=== PATIENT | female | born 1975 | race Caucasian/White ===

== ENCOUNTER 2017-11-12 08:07 | Emergency (ER) | payer MEDICARE ==
[~2017-11-12] VITALS: Ht 170.2 cm; Wt 90.0 kg
[~2017-11-12 08:07] MED LIST: ALBU90OI61; Adderall 20 MG20 MG PO; COUM; Cleocin HCl300 MG PO; Coumadin5 MG PO; ENOX80I SC; HYDCHL12.5 PO; LORA2 PO; Lovenox80 MG/0.8 SC; MEDICAL MARIJUANA; METPHE20 PO; MIRT15; MORP30 PO; MORP30ER PO; MORP60ER PO; MORPHINE; MORPHINE PUMP; MORPHINE SULFATE; NITR100CA PO; OMEP20ER PO; PHENTERMINE PO; PROM25 PO; RANI150 PO; SIMV40 PO; WARF10; WARF4 PO; WARF5 PO; WARF7.5 PO
[2017-11-12] MEDS ORDERED: ENOX80I SC (08:38)
[2017-11-12 08:48] LABS: BASOPHILS ABSOLUTE AUTO 0.04 K/mm3 (0.00-0.23); BASOPHILS PERCENT AUTO 1 % (0-2); EOSINOPHILS ABSOLUTE AUTO 0.12 K/mm3 (0.00-0.68); EOSINOPHILS PERCENT AUTO 2 % (0-6); Hematocrit 41.2 % (33.0-51.0); Hemoglobin 14.2 g/dL (11.5-16.0); IMMATURE GRAN ABSOLUTE AUTO 0.04 K/mm3 (0.00-0.10); IMMATURE GRAN PERCENT AUTO 1 % (0-1); LYMPHOCYTES ABSOLUTE AUTO 2.47 K/mm3 (0.84-5.20); LYMPHOCYTES PERCENT AUTO 31 % (21-46); MONOCYTES ABSOLUTE AUTO 0.67 K/mm3 (0.16-1.47); MONOCYTES PERCENT AUTO 8 % (4-13); Mean Corpuscular HGB 32.7 pg (26.0-34.0); Mean Corpuscular HGB Conc 34.5 g/dL (31.5-36.5); Mean Corpuscular Volume 95 fL (80-100); Mean Platelet Volume 10.3 fL (9.1-12.4); NEUTROPHILS ABSOLUTE AUTO 4.62 K/mm3 (1.96-9.15); NEUTROPHILS PERCENT AUTO 58 % (41-73); Platelet Count 266 K/mm3 (150-400); RDW Coefficient Variation 12.8 % (11.7-14.2); RDW Standard Deviation 44.7 fL (35.1-46.3); Red Blood Cell Count 4.34 M/mm3 (3.80-5.20); White Blood Cell Count 7.96 K/mm3 (4.00-11.30)
[2017-11-12 09:01] LABS: Alanine Aminotransfer (ALT/SGP 16 U/L (12-78); Albumin, Blood 3.4 g/dL (3.4-5.0); Albumin/Globulin Ratio 0.9 (0.8-1.8); Alk Phos 72 U/L (50-136); Anion Gap 9 mmol/L (6-16); Aspartate Aminotrans (AST/SGOT 14 U/L (12-37); Bilirubin, Total 0.3 mg/dL (0.1-1.0); Blood Urea Nitrogen 12 mg/dL (8-24); Bun/Creatinine Ratio 17.7 (12.0-20.0); CO2, Blood 25 mmol/L (21-32); Chloride, Blood 108 mmol/L (98-108); Creatinine, Blood 0.68 mg/dL (0.40-1.00); Globulin, Blood 3.9 g/dL (2.2-4.0); Glomerular Filtration Rate >60 (60-); Glucose, Blood 115 mg/dL (70-99); Potassium, Blood 3.7 mmol/L (3.5-5.5); Sodium, Blood 142 mmol/L (136-145); Total Protein, Blood 7.3 g/dL (6.4-8.2); Troponin I <0.015 ng/mL (0.000-0.040)
[2017-11-12 09:03] LABS: International Normalized Ratio 0.97
[2017-11-12 10:20] LABS: Source, Urine Clean Catch
[2017-11-12 10:25] LABS: Bilirubin, Urine Neg (Neg); Blood, Urine Neg (Neg); Glucose Qualitative, Urine Neg (Neg); Ketones, Urine Neg (Neg); Leukocyte Esterase, Urine Neg (Neg); Nitrite, Urine Neg (Neg); Protein, Urine Neg (Neg); Specific Gravity, Urine 1.015 (1.003-1.022); Urobilinogen, Urine NORM (Normal)
[2017-11-12 10:32] LABS: Appearance, Urine Clear (Clear); Color, Urine Yellow (P-Yellow)
[2017-11-12] MEDS ORDERED: LEVO750 PO (11:00)
[2017-11-12] MEDS ORDERED: Coumadin5 MG PO (11:00)
== END 2017-11-12 11:19 | disposition home or self-care (01) ==
LOC: ER 08:07
PROVIDERS: Emergency Medicine
DX: J18.9 Pneumonia, unspecified organism (principal); R79.1 Abnormal coagulation profile; I82.409 Acute embolism and thrombosis of unspecified deep veins of unspecified lower extremity; Z91.14 Patient's other noncompliance with medication regimen; F17.200 Nicotine dependence, unspecified, uncomplicated; Z88.8 Allergy status to other drugs, medicaments and biological substances; Z88.0 Allergy status to penicillin; Z79.01 Long term (current) use of anticoagulants; Z86.711 Personal history of pulmonary embolism
CPT/HCPCS: 36415; 71260; 80053; 81003; 83880; 84484; 85025; 85610; 85730; 93005; 93010; 93971; 99284-25; Q9967

== ENCOUNTER 2019-01-20 23:36 | Emergency (ER) | payer MEDICARE ==
[~2019-01-20] VITALS: Ht 172.7 cm; Wt 94.3 kg
[~2019-01-20 23:36] MED LIST changes: +LEVO750 PO; +Ultram50 MG PO
[2019-01-21] MEDS ORDERED: PROZAC20 MG PO (10:35)
[2019-01-21] MEDS ORDERED: ARIPIPRAZOLE5 MG PO (10:36)
[2019-01-21] MEDS ORDERED: ENOX100I SC (10:37)
== END 2019-01-21 00:47 | disposition home or self-care (01) ==
LOC: ER 23:36
DX: Z76.0 Encounter for issue of repeat prescription (principal); Z88.8 Allergy status to other drugs, medicaments and biological substances; Z88.0 Allergy status to penicillin; Z79.01 Long term (current) use of anticoagulants; F17.200 Nicotine dependence, unspecified, uncomplicated; Z85.43 Personal history of malignant neoplasm of ovary
CPT/HCPCS: 96372; J1650

== ENCOUNTER 2019-01-21 10:20 | Day surgery (SDC) | payer MEDICARE ==
[2019-01-21] MEDS ORDERED: PROZAC20 MG PO (10:35)
[2019-01-21] MEDS ORDERED: ARIPIPRAZOLE5 MG PO (10:36)
[2019-01-21] MEDS ORDERED: ENOX100I SC (10:37)
== END 2019-01-21 17:13 | disposition home or self-care (01) ==
LOC: ATC 10:20
DX: I74.3 Embolism and thrombosis of arteries of the lower extremities (principal); D68.51 Activated protein C resistance; F17.200 Nicotine dependence, unspecified, uncomplicated; Z86.718 Personal history of other venous thrombosis and embolism; Z86.711 Personal history of pulmonary embolism; Z88.8 Allergy status to other drugs, medicaments and biological substances; Z88.0 Allergy status to penicillin; Z79.01 Long term (current) use of anticoagulants; Z79.899 Other long term (current) drug therapy
CPT/HCPCS: 96372; J1650

== ENCOUNTER 2019-01-25 07:06 | Day surgery (SDC) | payer MEDICARE ==
[~2019-01-25 07:06] MED LIST changes: +ARIPIPRAZOLE5 MG PO; +ENOX100I SC; +PROZAC20 MG PO
[2019-01-25 09:20] LABS: BASOPHILS ABSOLUTE AUTO 0.05 K/mm3 (0.00-0.23); BASOPHILS PERCENT AUTO 1 % (0-2); EOSINOPHILS ABSOLUTE AUTO 0.28 K/mm3 (0.00-0.68); EOSINOPHILS PERCENT AUTO 3 % (0-6); Hematocrit 36.6 % (33.0-51.0); Hemoglobin 12.1 g/dL (11.5-16.0); IMMATURE GRAN ABSOLUTE AUTO 0.05 K/mm3 (0.00-0.10); IMMATURE GRAN PERCENT AUTO 1 % (0-1); LYMPHOCYTES ABSOLUTE AUTO 2.71 K/mm3 (0.84-5.20); LYMPHOCYTES PERCENT AUTO 25 % (21-46); MONOCYTES ABSOLUTE AUTO 0.74 K/mm3 (0.16-1.47); MONOCYTES PERCENT AUTO 7 % (4-13); Mean Corpuscular HGB 30.6 pg (26.0-34.0); Mean Corpuscular HGB Conc 33.1 g/dL (31.5-36.5); Mean Corpuscular Volume 93 fL (80-100); Mean Platelet Volume 10.3 fL (9.1-12.4); NEUTROPHILS ABSOLUTE AUTO 7.11 K/mm3 (1.96-9.15); NEUTROPHILS PERCENT AUTO 65 % (41-73); Platelet Count 313 K/mm3 (150-400); RDW Coefficient Variation 13.5 % (11.7-14.2); RDW Standard Deviation 46.1 fL (35.1-46.3); Red Blood Cell Count 3.95 M/mm3 (3.80-5.20); White Blood Cell Count 10.94 K/mm3 (4.00-11.30)
[2019-01-25 09:41] LABS: Alanine Aminotransfer (ALT/SGP 28 U/L (12-78); Albumin, Blood 3.3 g/dL (3.4-5.0); Albumin/Globulin Ratio 0.8 (0.8-1.8); Alk Phos 73 U/L (50-136); Anion Gap 5 mmol/L (6-16); Aspartate Aminotrans (AST/SGOT 14 U/L (12-37); Bilirubin, Total 0.1 mg/dL (0.1-1.0); Blood Urea Nitrogen 15 mg/dL (8-24); Bun/Creatinine Ratio 24.8 (12.0-20.0); CO2, Blood 27 mmol/L (21-32); Calcium, Blood 8.7 mg/dL (8.5-10.1); Chloride, Blood 104 mmol/L (98-108); Creatinine, Blood 0.61 mg/dL (0.40-1.00); Globulin, Blood 3.9 g/dL (2.2-4.0); Glomerular Filtration Rate >60 (60-); Glucose, Blood 91 mg/dL (70-99); Potassium, Blood 4.1 mmol/L (3.5-5.5); Sodium, Blood 136 mmol/L (136-145); Total Protein, Blood 7.2 g/dL (6.4-8.2)
--- NOTE | 2019-01-25 10:04 | NUR ---
PT REPORTS "MY R FOOT IS SWOLLEN" PT REMOVED SOCK AND NOTED REDNESS TOP OF FOOT WITH EDEMA NOTED. PT VERBALIZES UNDERSTANDING TO SEEK MEDICAL ATTENTION IF PAIN/REDNESS/SWELLING WORSENS.
--- NOTE | 2019-01-25 17:14 | NUR ---
PT C/O RIGHT FOOT RED AND SWOLLEN AND PAINFUL. PT REPORTS TRAMADOL ISN'T HELPING WITH HER PAIN. ENCOURAGED HER TO ELEVATE HER RIGHT LEG AND TO SEEK MEDICAL ATTENTION IF HER FOOT CHANGES COLOR OR BECOMES COOL TO TOUCH OR PAIN BECOMES WORSE.
[2019-01-26] MEDS ORDERED: Lotrimin Ultra12 GM TOP (10:00)
[2019-01-26] MEDS ORDERED: CEPH500 PO (10:00)
[2019-01-26] MEDS ORDERED: Norco 5-325 Ta1 EACH PO (10:00)
== END 2019-01-25 17:11 | disposition home or self-care (01) ==
LOC: ATC 07:06
PROVIDERS: Internal Medicine Hematology & Oncology
DX: D68.2 Hereditary deficiency of other clotting factors (principal); F17.200 Nicotine dependence, unspecified, uncomplicated; Z88.0 Allergy status to penicillin; Z88.8 Allergy status to other drugs, medicaments and biological substances; Z79.01 Long term (current) use of anticoagulants
CPT/HCPCS: 80053; 85025; 86304; J1650

== ENCOUNTER 2019-01-28 16:07 | Inpatient (IN) | payer MEDICARE ==
[~2019-01-28] VITALS: Ht 170.2 cm; Wt 90.2 kg
[~2019-01-28 16:07] MED LIST changes: +CEPH500 PO; -ENOX100I SC; +Lotrimin Ultra12 GM TOP; +Norco 5-325 Ta1 EACH PO
[2019-01-28 20:40] LABS: BASOPHILS ABSOLUTE AUTO 0.06 K/mm3 (0.00-0.23); BASOPHILS PERCENT AUTO 1 % (0-2); EOSINOPHILS ABSOLUTE AUTO 0.09 K/mm3 (0.00-0.68); EOSINOPHILS PERCENT AUTO 1 % (0-6); Hematocrit 37.6 % (33.0-51.0); Hemoglobin 12.7 g/dL (11.5-16.0); IMMATURE GRAN ABSOLUTE AUTO 0.05 K/mm3 (0.00-0.10); IMMATURE GRAN PERCENT AUTO 0 % (0-1); LYMPHOCYTES ABSOLUTE AUTO 4.05 K/mm3 (0.84-5.20); LYMPHOCYTES PERCENT AUTO 33 % (21-46); MONOCYTES ABSOLUTE AUTO 0.74 K/mm3 (0.16-1.47); MONOCYTES PERCENT AUTO 6 % (4-13); Mean Corpuscular HGB 31.2 pg (26.0-34.0); Mean Corpuscular HGB Conc 33.8 g/dL (31.5-36.5); Mean Corpuscular Volume 92 fL (80-100); Mean Platelet Volume 10.2 fL (9.1-12.4); NEUTROPHILS ABSOLUTE AUTO 7.27 K/mm3 (1.96-9.15); NEUTROPHILS PERCENT AUTO 59 % (41-73); Platelet Count 354 K/mm3 (150-400); RDW Coefficient Variation 13.4 % (11.7-14.2); RDW Standard Deviation 46.1 fL (35.1-46.3); Red Blood Cell Count 4.07 M/mm3 (3.80-5.20); White Blood Cell Count 12.26 K/mm3 (4.00-11.30)
[2019-01-28 21:03] LABS: Alanine Aminotransfer (ALT/SGP 27 U/L (12-78); Albumin, Blood 3.2 g/dL (3.4-5.0); Albumin/Globulin Ratio 0.7 (0.8-1.8); Alk Phos 72 U/L (50-136); Anion Gap 5 mmol/L (6-16); Aspartate Aminotrans (AST/SGOT 11 U/L (12-37); Bilirubin, Total 0.2 mg/dL (0.1-1.0); Blood Urea Nitrogen 11 mg/dL (8-24); Bun/Creatinine Ratio 16.3 (12.0-20.0); CO2, Blood 27 mmol/L (21-32); Calcium, Blood 9.2 mg/dL (8.5-10.1); Chloride, Blood 106 mmol/L (98-108); Creatinine, Blood 0.68 mg/dL (0.40-1.00); Globulin, Blood 4.4 g/dL (2.2-4.0); Glomerular Filtration Rate >60 (60-); Glucose, Blood 98 mg/dL (70-99); Potassium, Blood 3.8 mmol/L (3.5-5.5); Sodium, Blood 138 mmol/L (136-145); Total Protein, Blood 7.6 g/dL (6.4-8.2)
[2019-01-28 21:12] LABS: International Normalized Ratio 1.53; Prothrombin Time Results 15.6 Sec (9.7-11.5)
[2019-01-28] MEDS ORDERED: LOVENOX100 MG/1 M SC (22:34)
[2019-01-28] MEDS ORDERED: WARF5 PO (22:35)
--- NOTE | 2019-01-28 23:28 | NUR ---
PATIENT ARRIVED TO THE FLOOR VIA GURNEY. ADMITTED FOR STENOSIS OF THE RIGHT POPLITEAL ARTERY. PATIENT TRANSFERRED SELF TO THE BED. ABLE TO STAND ON HER FEET WITH SOME DISCOMFORT. RIGHT FOOT HAS SKIN BREAKDOWN IN BETWEEN THE 3RD AND 4TH TOE AND THE 4TH AND 5TH TOE, THERE IS MILD ODOR TO THE FOOT. WOUND CULTURE FOR MRSA ORDERED AND SENT TO LAB. PICTURES TAKEN OF THE FOOT. THERE IS PURPLE OF THE 3RD TOE. REDNESS TO THE BEAVERS, PAIN WHEN CLEANSED AND TOUCHED. PULSES FAINT. ADMIT ASSESSMENT COMPLTED, ALONG WITH HISTORY. HEPARIN DRIP STARTED AND VERIFIED WITH FAHAD WILSON. CALL LIGHT IN REACH. WILL CONTINUE TO MONITOR.
--- NOTE | 2019-01-29 05:01 | NUR ---
SHIFT SUMMARY: DAMON IS A 43 Y/O FEMALE ADMITTED FOR STENOSIS OF THE RIGHT POPLITEAL ARTERY. 3RD TOE ON THE RIGHT FOOT IS PURPLE ON THE BOTTOM. PAIN NOTED FROM TOES TO BEAVERS AVERAGE 8/10. DILAUDID AND NORCO GIVEN RESULTING IN 5-6. ENCOURAGED ELEVATIONS AND HOT AND COLD COMPRESS. NPO AFTER MIDNIGHT FOR FOR PROCEDURE WITH DR. BLANCA. TELE RESULTS SHOWED SINUS TACH IN THE 110'S ESPECIALLY WHEN PAIN IS ELEVATED. HEPARIN DRIP INFUSED WITH NO COMPLICATIONS ABLE TO GET TO THE BATHROOM WITH SBA. CULTURE OF THE WOUNDS BETWEEN RIGHT TOES OBTAINED AND SENT DUE TO HISTORY OF MRSA. WOUNDS DRESSED WITH ADAPTIC AND BANDAID. CALL LIGHT REMAINED IN REACH AND USED APPROPRIATLY. WILL REPORT TO DAY SHIFT RN.
[2019-01-29 06:08] LABS: BASOPHILS ABSOLUTE AUTO 0.07 K/mm3 (0.00-0.23); BASOPHILS PERCENT AUTO 1 % (0-2); EOSINOPHILS ABSOLUTE AUTO 0.24 K/mm3 (0.00-0.68); EOSINOPHILS PERCENT AUTO 2 % (0-6); Hematocrit 37.9 % (33.0-51.0); Hemoglobin 12.6 g/dL (11.5-16.0); IMMATURE GRAN ABSOLUTE AUTO 0.04 K/mm3 (0.00-0.10); IMMATURE GRAN PERCENT AUTO 0 % (0-1); LYMPHOCYTES ABSOLUTE AUTO 4.25 K/mm3 (0.84-5.20); LYMPHOCYTES PERCENT AUTO 39 % (21-46); MONOCYTES ABSOLUTE AUTO 0.81 K/mm3 (0.16-1.47); MONOCYTES PERCENT AUTO 7 % (4-13); Mean Corpuscular HGB 31.1 pg (26.0-34.0); Mean Corpuscular HGB Conc 33.2 g/dL (31.5-36.5); Mean Corpuscular Volume 94 fL (80-100); Mean Platelet Volume 9.9 fL (9.1-12.4); NEUTROPHILS ABSOLUTE AUTO 5.61 K/mm3 (1.96-9.15); NEUTROPHILS PERCENT AUTO 51 % (41-73); Platelet Count 355 K/mm3 (150-400); RDW Coefficient Variation 13.4 % (11.7-14.2); RDW Standard Deviation 46.2 fL (35.1-46.3); Red Blood Cell Count 4.05 M/mm3 (3.80-5.20); White Blood Cell Count 11.02 K/mm3 (4.00-11.30)
[2019-01-29 06:25] LABS: Anion Gap 6 mmol/L (6-16); Blood Urea Nitrogen 13 mg/dL (8-24); Bun/Creatinine Ratio 17.7 (12.0-20.0); CO2, Blood 28 mmol/L (21-32); Calcium, Blood 9.2 mg/dL (8.5-10.1); Chloride, Blood 104 mmol/L (98-108); Creatinine, Blood 0.73 mg/dL (0.40-1.00); Glomerular Filtration Rate >60 (60-); Glucose, Blood 110 mg/dL (70-99); Potassium, Blood 3.9 mmol/L (3.5-5.5); Sodium, Blood 138 mmol/L (136-145)
[2019-01-29 14:19] LABS: Source, Urine Catheter
[2019-01-29 14:46] LABS: Bilirubin, Urine Neg (Neg); Blood, Urine 2+ (Neg); Glucose Qualitative, Urine Neg (Neg); Ketones, Urine 1+ (Neg); Leukocyte Esterase, Urine Neg (Neg); Nitrite, Urine Neg (Neg); Protein, Urine 1+ (Neg); Urobilinogen, Urine NORM (Normal)
[2019-01-29 15:27] LABS: Appearance, Urine Clear (Clear); Color, Urine Yellow (P-Yellow)
[2019-01-29 15:29] LABS: Bacteria Rare /hpf; Squamous Epithelial Cells Rare /hpf (Few); White Blood Cells, Urine 0-2 /hpf (0-5)
--- NOTE | 2019-01-29 16:29 | NUR ---
PT ADMITTED [facility] S/P PERIPHERAL ANGIOGRAM WITH INTERVENTION FOR POP ART OCCLUSION OF RIGHT LEG. PT ARRIVED TO ROOM AT 1325. PT AWAKE, CRYING OUT IN PAIN; VERY RESTLESS, W C/O PAIN 10/10 TO RIGHT FOOT, RIGHT LEG, HIPS, AND SHOULDER. PT HYPERSENSITIVE TO ALL TOUCH AND STIMULI. DILAUDID IV GIVEN WITH SOME EFFECT. PT CONT TO C/O SEVERE PAIN BUT FELL IN AND OUT OF SLEEP DURING BEDSIDE REPORT. HEPARIN GTT INFUSING INTO LEFT ART SHEATH AT 6ML HR(300UNITS/HR) AND CATHFLO AT AT 1MG/HR (25MLS/HR). LEFT GROIN SOFT, W/O BLEEDING OR HEMATOMA, BUT TENDER (PT TENDER TO MOST OF BODY). LEFT FOOT WITH 2+ STRONG PULSES TO PT/DP. UNABLE TO FIND PULSES TO RIGHT FOOT USING DOPPLER. DR MUSA NOTIFIED; PT MAY HAVE ABSENT TO INTERMITT PULSES PER DR MUSA. DR MUSA AT BEDSIDE TO CHECK ON PT AT 1528. ALL RIGHT TOES DUSKY WITH POOR CAP REFILL. BACK SIDE OF MIDDLE TOE ESPECIALLY DUSKY/BLUE. FOOT COOL AND PALE. PER DR MUSA FOOT IMPROVED COMPARED TO PRE PROCEDURE.
--- NOTE | 2019-01-29 18:36 | NUR ---
PT AWAKE TALKING WITH VISITOR. DRINKING JUICE AND TOLERATING WELL. PAIN TO RIGHT CALF/FOOT 5-6/10. PT HAPPY WITH PAIN LEVEL COMING DOWN. DILAUDID IVP GIVEN. DOPPLER PULSES POSITIVE TO RIGHT PT/DP. PULSES MARKED W PEN. FOOT WARM AND FLUSHED WITH IMPROVING CAP REFILL. SOME CYANOSIS REMAINS TO RIGHT TOES; ESPECIALLY R MIDDLE TOE. LEFT GROIN STABLE. TPA AND HEP GTT CONT TO INFUSE.
--- NOTE | 2019-01-29 22:20 | NUR ---
INITIAL ASSESSMENT: PT A&O, COMPLAINS OF PAIN. AFEBRILE. CURRENTLY ON FLAT TIME WITH L FEMORAL ART SHEATH IN PLACE WITH TPA INFUSING AT 1MG/HR AND HEPARIN AT 300U/HR. SMALL HEMATOMA AT INSERTION SITE. PULSES ARE STRONG ON L FOOT. R TIBIAL PULSE FOUND WITH DOPPLER, UNABLE TO LOCATE R PEDAL WITH DOPPLER. F FOOT COOL TO THE TOUCH HOWEVER CAP REFILL <3 SEC. LUNG SOUNDS CLEAR, SPO2 >90% ON RA. SR, HR 81, SBP IN THE 110S. BT NORMAL NO BM CURRENTLY. MARIE IN PLACE DRAINING CLEAR YELLOW FLUID. 2 IVS TO L ARM, ONE IN LFA, ONE IN L WRIST. LFA IV PATENT. PT CURRENTLY RESTING AND DOES NOT HAVE ANY COMPLAINTS.
--- NOTE | 2019-01-29 23:45 | NUR ---
PT WRITHING IN PAIN. CALL PLACED TO DR. MUSA FOR ADDITIONAL ORDERS. OK TO GIVE VERSED ORDERED ON MAY. ADDITIONAL ORDERS FOR ATIVAN 1 MG X NOW AND ADDITIONAL 1MG IN 30 MIN IF NOT EFFECTIVE. ATIVAN 1MG PRN THEREAFTER. PT STILL AGITATED DESPITE MEDS. PT RE-EDUCATED ABOUT NEED TO KEEP LEG STILL. PT STATED UNDERSTANDING HOWEVER CONTINUED TO TRASH AROUND IN BED.
--- NOTE | 2019-01-30 00:45 | NUR ---
CALL PLACED TO DR MUSA REGARDING LEAKING FROM [facility] ART SITE AND LOSS OF PULSES TO R. FOOT/TIBIAL. ORDER TO TURN TPA DOWN TO 0.5MG/HR. DR MUSA STATES INTERMITTENT LOSS OF PULSES TO R FOOT IS TO BE EXPECTED. WILL CONTINUE TO MONITOR PULSES VIA DOPPLER. DR MUSA NOTIFIED OF MANUAL PRESSURE HELD AT [facility] ART SITE.
[2019-01-30 04:05] LABS: BASOPHILS ABSOLUTE AUTO 0.04 K/mm3 (0.00-0.23); BASOPHILS PERCENT AUTO 1 % (0-2); EOSINOPHILS ABSOLUTE AUTO 0.19 K/mm3 (0.00-0.68); EOSINOPHILS PERCENT AUTO 2 % (0-6); Hematocrit 35.4 % (33.0-51.0); Hemoglobin 11.9 g/dL (11.5-16.0); IMMATURE GRAN ABSOLUTE AUTO 0.03 K/mm3 (0.00-0.10); IMMATURE GRAN PERCENT AUTO 0 % (0-1); LYMPHOCYTES ABSOLUTE AUTO 1.85 K/mm3 (0.84-5.20); LYMPHOCYTES PERCENT AUTO 22 % (21-46); MONOCYTES ABSOLUTE AUTO 0.67 K/mm3 (0.16-1.47); MONOCYTES PERCENT AUTO 8 % (4-13); Mean Corpuscular HGB 30.9 pg (26.0-34.0); Mean Corpuscular HGB Conc 33.6 g/dL (31.5-36.5); Mean Corpuscular Volume 92 fL (80-100); Mean Platelet Volume 9.7 fL (9.1-12.4); NEUTROPHILS ABSOLUTE AUTO 5.79 K/mm3 (1.96-9.15); NEUTROPHILS PERCENT AUTO 68 % (41-73); Platelet Count 261 K/mm3 (150-400); RDW Coefficient Variation 13.4 % (11.7-14.2); RDW Standard Deviation 45.5 fL (35.1-46.3); Red Blood Cell Count 3.85 M/mm3 (3.80-5.20); White Blood Cell Count 8.57 K/mm3 (4.00-11.30)
[2019-01-30 04:25] LABS: Anion Gap 6 mmol/L (6-16); Blood Urea Nitrogen 7 mg/dL (8-24); Bun/Creatinine Ratio 11.5 (12.0-20.0); CO2, Blood 26 mmol/L (21-32); Calcium, Blood 8.7 mg/dL (8.5-10.1); Chloride, Blood 104 mmol/L (98-108); Creatinine, Blood 0.61 mg/dL (0.40-1.00); Glomerular Filtration Rate >60 (60-); Glucose, Blood 103 mg/dL (70-99); Potassium, Blood 3.9 mmol/L (3.5-5.5); Sodium, Blood 136 mmol/L (136-145)
--- NOTE | 2019-01-30 05:47 | NUR ---
SHIFT SUMMARY: PT A&O. WAS AGITATED AND ANXIOUS AT THE BEGINNING OF SHIFT, THRASHING AROUND, UNABLE TO REDIRECT PT TO LIE STILL. COMPLAINED OF 10/10 PAIN OF R FOOT AND BACK. LUNG SOUNDS CLEAR THROUGHOUT. SPO2 GREATER THAN 90% ON RA. ST, HR IN THE 100S, SBP STABLE IN THE 110S. BT X4, NO BM THIS SHIFT. MARIE IN PLACE DRAINING CLEAR YELLOW FLUID. 20G IN L HAND, 20G LFA. FEM SHEATH IN L GROIN WITH TPA INFUSING 0.5MG/HR IN DISTAL PORT AND HEPARIN INFUSING AT 300U/HR IN PROXIMAL PORT. IN MID OF SHIFT R FOOT BECAME COOL, DUSKY, AND CYANOTIC, WAS NO LONGER ABLE TO FIND PULSES WITH DOPPLER. LENCHO NOTIFIED SEE PREVIOUS NURSING NOTES. PULSES PRESENT AT THIS TIME VIA DOPPLER WITH IMPROVED COLOR, WARMTH, CAP REFILL. SOME OOZING AT FEM INSERTION SITE. FEM STOP APPLIED EARLIER IN SHIFT. NO NEW BLEEDING AT THIS TIME. PT CURRENTLY RESTING COMFORTABLY.
--- NOTE | 2019-01-30 08:00 | NUR ---
ASSUMED CARE NOTE: ASSUMED CARE OF PT @ 0700, RECEVIED REPORT FROM ACE WILSON. PT IS ALERT AND ORIENTED X3. PT IS ON RA WITH SPO2 ABOVE 90%, PT IN SINUS TACH WITH HR BETWEEN 110-120 BPM. L FEMORAL SHEATH WITH TPA INFUSING @ 0.5MG/HR (DISTAL PORT), AND HEPARIN INFUSING @ 3.53 U/KG/HR IN PROXIMAL PORT. FEMORAL SHEATH IS OZZING BLOOD, FEM STOP WAS PLACED OVER TO HOLD PRESSURE. ALL LOWER EXTREMITY PULSES ARE PRESENT WITH DOPPLER. RIGHT FOOT IT WARM TO THE TOUCH, SLIGHTLY CYANOTIC, PT ALSO STATES NUMBNESS AND TINGILING TO THE FOOT. DR. Giron WAS CALLED FOR REPEAT LAB, NO NEW ORDERS. PT WILL BE TAKEN TO THE MANAGER AUTOMOTIVE SHORTLY. PT IS C/O PAIN TO RIGHT LEG AND BACK. PT HAS BEEN MEDICATED PER EMAR. WILL CONTINUE TO MONITOR.
--- NOTE | 2019-01-30 09:30 | NUR ---
Spoke with Dr. Toure if need to check for fibrinogen level since there was no order for recheck, he stated will see patient shortly and that no orders received.
--- NOTE | 2019-01-30 10:00 | NUR ---
RIGHT MIDDLE TOE ASSESSMENT: LATERAL-BLACK POSTERIOR- LIGHT PURPLE ANTERIOR-PINK TEMP-COOL
--- NOTE | 2019-01-30 11:40 | NUR ---
UPDATE: REBLEED TO L FEM SHEATH SITE. MANUAL PRESSURE WAS PLACED ABOVE THE SHEATH SITE FOR FIVE MINTUES. DRESSING WAS CHANGED AND REINFORCED. FEM STOP PLACED. DR. Giron CALLED, LEFT MESSAGE. WILL CONTINUE TO [facility] SITE.
--- NOTE | 2019-01-30 11:48 | NUR ---
UPDATE: TALKED TO STEVE PALACIOS FROM [facility] TO LET DR. Giron KNOW ABOUT THE PT STATUS. HE WILL RELAY MESSAGE.
--- NOTE | 2019-01-30 15:47 | NUR ---
Spoke with Dr. Toure regarding Left Groin Access site oozing. Bed sheet has been soaked with blood which concerns this nurse. Tried to explain to him that we had been keeping the fem stop in place but not inflated. But he stated will call this nurse. He ordered for a STAT H&H, asked him if we can also do a fibrinogen level he stated that it should have been ordered every 6 hours. Informed this was not ordered every 6 hours.
--- NOTE | 2019-01-30 16:10 | NUR ---
DR. MUSA CAME BY TO SEE PT. INFORMED HIM THAT SHEETS WERE SOAKED WITH BLOOD AND THE SHEETS PT IS LAYING ON ARE NEW SHEETS BUT STILL WITH BLOOD OOZING SLOWLY FROM LEFT GROIN ACCESS SITE. DR. BLANCA IS AWARE OF PT FEM-STOP IN PLACE BUT NOT INFLATED AT THE LEFT GROIN ACCESS SITE. DR. MUSA SEEMED TO BE HAPPY ABOUT OVERALL CONDITION OF THE FOOT AND ACCESS SITE.
[2019-01-30 16:17] LABS: Hematocrit 33.5 % (33.0-51.0); Hemoglobin 11.1 g/dL (11.5-16.0)
--- NOTE | 2019-01-30 17:16 | NUR ---
DR. MUSA WAS NOTIFIED REGARDING PT'S FIBRINOGEN LEVEL OF 90. HE ORDERED TO STOP THE TPA DRIP AND CONTINUE WITH THE HEPARIN DRIP.
--- NOTE | 2019-01-30 17:50 | NUR ---
SHIFT SUMMARY: PT CONTINUES TO BE A&0X3. RA WITH SPO2 ABOVE 90%. PT IS IN SINUS TACH W/ HR BETWEEN 90-100 BPM. PT HAS BEEN COOPRATIVE T/O SHIFT. PT CONTINUES TO HAVE PAIN, SHE HAS BEEN MEDICATED PER EMAR. PT PAIN LEVEL HAS IS BEING MANAGED W/ CURRENT MED REGIMEN. PT LEFT FEMORAL SHEATH CONTINUES TO OOZE SCANT AMOUNTS. HEPARIN AT 300U/HR AT SITE, TPA DISCONTINUED. PEDAL PULSES FOUND WITH DOPPLER PT WAS ABLE TO GET REST. FAMILY VISITED AND WAS UPDATED. WILL CONTINUE TO MONITOR PT UNTIL REPORT IS GIVEN TO ONCOMING SHIFT. STILL AWAITING TO GO TO ENTRY LEVEL ACCOUNT EXECUTIVE FOR PROCEDURE.
--- NOTE | 2019-01-30 19:06 | NUR ---
PT WAS TAKEN TO THE MODEL MAKER APPRENTICE AT THIS TIME.
--- NOTE | 2019-01-30 23:42 | NUR ---
ASSUMED PT CARE AT 2054 PT ARRIVED FROM ENGRAVER SET UP OPERATOR POST RIGHT POPLITEAL TO RIGHT TIBIAL BALLOONING. PER REPORT PT IS TO ANTICIPATE GOING BACK FOR FURTHER INTERVENTION TOMORROW. ORDERS FOR HEPARIN AT 15UNITS/KG/HR; INFUSING AT A RATE OF 27.9 MLS/HR WITH PHARMACY CONSULT TO MANAGE. SHEATH TO LEFT FEMORAL SITE IS IN PLACE WITH OOZING NOTED AROUND INSERTION; SITE SURROUNDING INSERTION IS SOFT, NON-TENDER WITH NO HEMATOMA NOTED. PERIPHERAL PULSES ARE STRONG AND PALPABLE TO LLE; DOPPLER PEDAL AND TIBIAL PULSES TO RLE. PHARMACY NOTIFIED WITH ORDERS FOR PTT FOR NOW. PTT CAME BACK CRITICALLY HIGH; GREATER THAN 139. PHARMACIST NOTIFIED WITH ORDERS TO HOLD HEPARIN X2 HOURS. AFTER PLACING HEPARIN ON STANDBY; SITE WAS RECHECKED WITH SIGNIFICANT OOZING NOTED; SATURATING GAUZE AT INSERTION SITE, WELL WASH CLOTH TO GROIN. HELD MANUAL PRESSURE FROM 2215 UNTIL 2255. CHANGED DRESSING UTILIZING STERILE TECHNIQUE; APPLIED FABIO DRESSING AND FEM STOP. FABIO DRESSING REMAINS SATURATED; HOWEVER, NO FURTHER OOZING DOWN GROIN. SURROUNDING TISSUE REMAINS SOFT, NON-TENDER WITH NO HEMATOMA NOTED. PERIPHERAL PULSES REMAIN PALPABLE AND STRONG TO LLE; AND DOPPLER PULSES FOUND TO BOTH PEDAL AND TIBIAL PULSES TO RLE. PT MEDICATED FOR PAIN WITH 0.5MG IV DILAUDID DURING MANUAL PRESSURE. CURRENTLY, PT IS SLEEPING WITH NO C/O DISCOMFORT. WILL CONTINUE TO MONITOR SITE AND VSS. NEXT PTT TO BE DRAWN AT 0000. PT HAS CALL LIGHT WITHIN REACH AND SHE IS ABLE TO MAKE HER NEEDS KNOWN.
--- NOTE | 2019-01-31 06:43 | NUR ---
END OF SHIFT SUMMARY NO SIGNIFICANT CHANGED FROM LAST ENTRY. CHANGED DRESSING TO LEFT FEMORAL SITE WITH FABIO DRESSING. MINIMAL AMOUNT OF SANGUINOUS DRAINAGE TO FABIO DRESSING. MEDICATED WITH VERSED AND DILAUDID THROUGHOUT NIGHT. PULSES TO RLE OBTAINED VIA DOPPLER- PEDAL AND TIBIAL. COLOR- WARM AND PINK. DISCOLORED 3-5 DIGIT TOES WITH ODOR NOTED. PULSES TO LEFT PEDAL AND TIBIAL PALPABLE AND STRONG. HEPARIN RESUMED AT 12 UNITS/KG/HR PER PHARMACY CONSULT. NEXT PTT AT 0800. PATIENT GIVEN PARTIAL BEDBATH, APPEARS COMFORTABLE AT THIS TIME, WILL CONTINUE TO MONITOR UNTIL HANDED OFF TO ONCOMING NURSE.
--- NOTE | 2019-01-31 08:00 | NUR ---
ASSUMED CARE NOTE: ASSUMED CARE OF PT @ 0700, RECEVIED REPORT FROM HATTIE WILSON. UPON ENTERING ROOM PT WAS A&OX3, ON RA WITH SPO2 ABOVE 90%. PT CONTINUES TO C/O PAIN TO THE RIGHT LOWER EXTREMITEY, WILL MEDICATE PER EMAR. NO ACTIVE BLEEDING SEEN ON LEFT FEMORAL SHEATH, SLIGHT BRUSING SEEN PROXIMAL TO INSERTION SITE. 12U/KG/HR OF HEPARIN INFUSING INTO THE FEMORAL SHEATH. RIGHT LEG WAS ASSESSED SLIGHT DISCOLORATION TO FOOT, HOWEVER IT IS WARM TO THE TOUCH WITH GOOD CAP REFILL (EXCEPT THE MIDDLE TOE). MIDDLE RIGHT TOE IS BLACK LATERALY (R) AND PURPLE POSTERIORLY. PEDAL AND TIBIAL PULSES WERE TAKEN BY DOPPLER. MARIE PATENT AND DRAINING CLEAR YELLOW URINE. PT IS NOW NPO AND AWATING WAFER PRODUCTION WORKER PROCEDURE. WILL CONTINUE TO MONITOR PT T/O SHIFT.
[2019-01-31 08:34] LABS: BASOPHILS ABSOLUTE AUTO 0.03 K/mm3 (0.00-0.23); BASOPHILS PERCENT AUTO 0 % (0-2); EOSINOPHILS ABSOLUTE AUTO 0.26 K/mm3 (0.00-0.68); EOSINOPHILS PERCENT AUTO 2 % (0-6); Hematocrit 32.1 % (33.0-51.0); Hemoglobin 10.6 g/dL (11.5-16.0); IMMATURE GRAN ABSOLUTE AUTO 0.05 K/mm3 (0.00-0.10); IMMATURE GRAN PERCENT AUTO 1 % (0-1); LYMPHOCYTES ABSOLUTE AUTO 2.26 K/mm3 (0.84-5.20); LYMPHOCYTES PERCENT AUTO 21 % (21-46); MONOCYTES PERCENT AUTO 9 % (4-13); Mean Corpuscular HGB 30.8 pg (26.0-34.0); Mean Corpuscular Volume 93 fL (80-100); Mean Platelet Volume 9.8 fL (9.1-12.4); NEUTROPHILS ABSOLUTE AUTO 7.15 K/mm3 (1.96-9.15); NEUTROPHILS PERCENT AUTO 67 % (41-73); Platelet Count 234 K/mm3 (150-400); RDW Coefficient Variation 13.3 % (11.7-14.2); RDW Standard Deviation 45.4 fL (35.1-46.3); Red Blood Cell Count 3.44 M/mm3 (3.80-5.20); White Blood Cell Count 10.65 K/mm3 (4.00-11.30)
[2019-01-31 08:40] LABS: Albumin, Blood 2.4 g/dL (3.4-5.0); Anion Gap 6 mmol/L (6-16); Blood Urea Nitrogen 6 mg/dL (8-24); Bun/Creatinine Ratio 10.2 (12.0-20.0); CO2, Blood 27 mmol/L (21-32); Calcium, Blood 8.5 mg/dL (8.5-10.1); Chloride, Blood 102 mmol/L (98-108); Creatinine, Blood 0.59 mg/dL (0.40-1.00); Glomerular Filtration Rate >60 (60-); Glucose, Blood 112 mg/dL (70-99); Phosphorus, Blood 3.3 mg/dL (2.5-4.9); Potassium, Blood 3.8 mmol/L (3.5-5.5); Sodium, Blood 135 mmol/L (136-145)
--- NOTE | 2019-01-31 16:42 | NUR ---
1600: PT ASSISTED TO LOG ROLL FOR REPOSITIONING, SMALL AMOUNT OF FRESH BLOOD OOZING FROM LEFT GROIN SHEATH AFTER REPOSITION. MANUAL PRESSURE HELD X15 MINUTES, HEMOSTASIS ACHIEVED. BP WNL, HR 110'S SINUS, PTT THERAPEUTIC. HEPARIN CONTINUES TO INFUSE PER ORDERS. 1640: NO ADDITIONAL OOZING FROM GROIN SITE SINCE MANUAL PRESSURE RELEASED, PT TO BRIDAL STYLIST SALES CONSULTANT AT THIS TIME. BRIDAL STYLIST SALES CONSULTANT STAFF UPDATED ON PT STATUS.
--- NOTE | 2019-01-31 18:06 | NUR ---
SHIFT SUMMARY: PT' VSS T/O. SINUS TACH WITH HR RANGING IN THE 100-110. LEFT FEMORAL SHEATH W/ SCANT BLEEDING X1, RESOLVED WITH MANUAL PRESSURE. HEPARIN INFUSING @ 13U/HR AT SHEATH SITE UPON LEAVING TO DRAPERY ROD ASSEMBLER. RIGHT FOOT EDEMA REAMINS, PULSES FOUND BY DOPPLER, WARM TO THE TOUCH. RIGHT MIDDLE TOE IS DUSKY, 4TH AND 5TH TOE IS IMPROVING IN COLOR. WOUNDS TO 3RD-5TH TOES OF RIGHT FOOT, OZZING SMALL AMOUNT OF DARK MALODOROUS DRAINAGE. PT C/O OF NUMT TO RLE. PT RESPONDING WELL TO PAIN REGIMEN. PT REMAINS IN DRAPERY ROD ASSEMBLER, WILL GIVE REPORT TO ONCOMING NURSE.
--- NOTE | 2019-01-31 19:57 | NUR ---
ASSUMED PATIENT CARE RETURNED FROM PHONE COUNSELOR AT 1930 AFTER IVC FILTER PLACEMENT TO RIGHT FEM VEIN, STENT ABOVE KNEE IN RIGHT POPLITEAL, AND BALLOONING FROM RIGHT POPLITEAL TO RIGHT TIBIAL, ANGIOSEAL TO LEFT FEMORAL, MANUAL PRESSURE APPLIED TO RIGHT TIBIAL WITH PRESSURE DRESSIGN INTACT WITH MINIMAL AMOUNT OF SANGUINOUS DRAINAGE NOTED. MANUAL PRESSURE HELD TO RIGHT FEMORAL SITE WITH DRESSING C/D/I. MANUAL PRESSURE HELD BY PHONE COUNSELOR PERSONNEL. PT RETURNED WITH HEPARIN RUNNING THROUGH L FOREARM IV AT 13 UNITS/KG/HR. CALL PLACED TO HOSPITALIST DUE TO DISCOLORED THIRD TO FIFTH DIGIT TOES WELL STRONG ODOR THAT HAS WORSENED SINCE YESTERDAY. HOSPITALIST TO COME TO UNIT TO ASSESS PATIENT. PATIENT IS COMFORTABLE AND SLEEPING AT THIS TIME. VSS. NO PAIN, NAUSEA OR VOMITING AT THIS TIME. WILL CONTINUE TO MONITOR.
[2019-02-01 03:37] LABS: BASOPHILS ABSOLUTE AUTO 0.04 K/mm3 (0.00-0.23); BASOPHILS PERCENT AUTO 0 % (0-2); EOSINOPHILS ABSOLUTE AUTO 0.41 K/mm3 (0.00-0.68); EOSINOPHILS PERCENT AUTO 4 % (0-6); Hemoglobin 10.3 g/dL (11.5-16.0); IMMATURE GRAN ABSOLUTE AUTO 0.07 K/mm3 (0.00-0.10); IMMATURE GRAN PERCENT AUTO 1 % (0-1); LYMPHOCYTES ABSOLUTE AUTO 3.43 K/mm3 (0.84-5.20); LYMPHOCYTES PERCENT AUTO 31 % (21-46); MONOCYTES ABSOLUTE AUTO 0.87 K/mm3 (0.16-1.47); MONOCYTES PERCENT AUTO 8 % (4-13); Mean Corpuscular HGB 31.3 pg (26.0-34.0); Mean Corpuscular HGB Conc 33.2 g/dL (31.5-36.5); Mean Corpuscular Volume 94 fL (80-100); Mean Platelet Volume 10.1 fL (9.1-12.4); NEUTROPHILS ABSOLUTE AUTO 6.42 K/mm3 (1.96-9.15); NEUTROPHILS PERCENT AUTO 57 % (41-73); Platelet Count 240 K/mm3 (150-400); RDW Coefficient Variation 13.3 % (11.7-14.2); RDW Standard Deviation 46.7 fL (35.1-46.3); Red Blood Cell Count 3.29 M/mm3 (3.80-5.20); White Blood Cell Count 11.24 K/mm3 (4.00-11.30)
[2019-02-01 03:56] LABS: Anion Gap 3 mmol/L (6-16); Blood Urea Nitrogen 7 mg/dL (8-24); Bun/Creatinine Ratio 11.9 (12.0-20.0); CO2, Blood 32 mmol/L (21-32); Calcium, Blood 8.6 mg/dL (8.5-10.1); Chloride, Blood 103 mmol/L (98-108); Creatinine, Blood 0.59 mg/dL (0.40-1.00); Glomerular Filtration Rate >60 (60-); Glucose, Blood 107 mg/dL (70-99); Potassium, Blood 4.4 mmol/L (3.5-5.5); Sodium, Blood 138 mmol/L (136-145)
--- NOTE | 2019-02-01 05:24 | NUR ---
END OF SHIFT SUMMARY NO SIGNIFICANT EVENTS SINCE LAST ENTRY. VSS. PATIENT'S PAIN HAS BEEN BETTER MANAGED THIS SHIFT. WOUND CARE TO RLE. PER ORDERS FROM JESSICA LUNDY TOES ARE TO REMAIN DRY. PLACED MEDEL'S WOOL BETWEEN TOES. SEE NURSE NOTE. LEFT AND RIGHT FEM SITE AND R TIBIAL SITE HAVE BEEN STABLE, NO OOZING OR HEMATOMA NOTED. RLE COLOR IS BETTER. HEPARIN GTT REMAINS AT 12.5 UNITS/KG/HR. WILL CONTINUE TO MONITOR UNTIL HANDOFF TO ONCOMING NURSE.
--- NOTE | 2019-02-01 07:20 | NUR ---
START OF SHIFT NOTE: RECEIVED REPORT FROM STEVE LIND, AND HATTIE SIMPSON RN, ASSUMED CARE, PATIENT IS AWAKE, NEED REPOSITIONING, HAD PATIENT SIT AT SIDE OF BED AND DANGLE, ALSO STAND FOR A BRIEF MOMENT, PATIENT TOLERATED WELL, BUT C/O "THROBBING" IN RLE, ANGIOSEALS IN BILATERAL FEMORAL GROIN SITES, SOFT, NONTENDER, NO HEMATOMA OR BLEEDING NOTED, PATIENT'S RLE MIDDLE TOE HAS A BLACK TIP, TOES ARE WITH COTTON BALLS, PEDAL PULSES PALPABLE BILATERAL, RIGHT PEDAL PULSE FAINT, BUT LEFT PEDAL PULSE STRONG, PATIENT IS A+OX4, LUNG SOUNDS CLEAR, ST WITH HR IN 120'S, BOWEL TONES PRESENT IN ALL FOUR QUADRANTS, PATIENT STATED SHE HAS NOT EATEN IN FOUR DAYS, MARIE CATHETER IN PLACE AND DRAINING CLEAR YELLOW URINE, HEPARIN INFUSING AT 12.5, PATIENT RECEIVED 1MG DILAUDED IV FOR 8/10 PAIN (THROBBING) IN RLE AND BACK PAIN, CALL LIGHT IN REACH, WILL CONTINUE TO MONITOR.
--- NOTE | 2019-02-01 08:29 | NUR ---
PATIENT WAS POSITIONED IN CHAIR POSITION VIA BED, TOLERATING WELL AT THIS TIME, VSS, AFEBRILE, PAIN DOWN TO 5, PATIENT STATES THAT "SHE LIVES AT A 4 OR 5 FOR PAIN OUTSIDE THE HOSPITAL, ATE SMALL AMOUNT OF BREAKFAST, STATED "I NORMALLY DON'T EAT BREAKFAST", POSITIONED FOR COMFORT, CALL LIGHT IN REACH, WILL CONTINUE TO MONITOR.
--- NOTE | 2019-02-01 10:29 | NUR ---
PATIENT RESTING WITH EYES CLOSED, AWAITING DR. RANGEL TO SEE PATIENT FOR FURTHER INSTRUCTIONS, CALL LIGHT IN REACH, WILL CONTINUE TO MONITOR.
--- NOTE | 2019-02-01 12:26 | NUR ---
PT/OT IN TO SEE PATIENT, DID WELL WITH WALKER UP IN ROOM, UP TO ROOM TOILET, CALL LIGHT IN REACH, WILL CONTINUE TO MONITOR.
--- NOTE | 2019-02-01 12:48 | NUR ---
PATIENT UP IN CHAIR, INQUIRING ABOUT NEXT DOSE OF PAIN MEDICATION, WILL D/C FRANK BILLINGS, PATIENT ABLE TO USE ROOM TOILET AT THIS TIME, FRIEND AT BEDSIDE CALL LIGHT IN REACH, WILL CONTINUE TO MONITOR.
--- NOTE | 2019-02-01 13:23 | NUR ---
PATIENT RECEIVED 3RD DOSE OF DILAUDID 1 MG IV FOR 8/10 PAIN IN RLE, ALSO MARIE CATHETER D/C'D, PATIENT TOLERATED WELL AND UP TO ROOM TOILET TO VOID SMALL AMOUNT OF URINE, VSS, AFEBRILE, CALL LIGHT IN REACH, WILL CONTINUE TO MONITOR.
--- NOTE | 2019-02-01 14:21 | NUR ---
PT/OT IN TO WORK WITH PATIENT AGAIN, UP IN ROOM WITH WALKER, RETURNED TO BED, PATIENT VERBALIZED WISH TO TAKE A NAP.
--- NOTE | 2019-02-01 14:57 | NUR ---
REPORT CALLED TO STEVE GA, ON MEDICAL FLOOR, PATIENT WILL TRANSFER TO ROOM 358 VIA WHEELCHAIR WITH ALL MEDICATIONS AND BELONGINGS.
--- NOTE | 2019-02-01 19:26 | NUR ---
PT ARRIVED TO THE FLOOR THIS AFTERNOON. PT ARRIVED VIA WHEELCHAIR. PT TRANSFERED TO THE BED INDEPENDENTLY. PT STATES PAIN ON A 6-8 LEVEL IN HER RIGHT FOOT/ANKLE. PT MEDICATED WITH DILAUDID FOR PAIN. PT INDEPENDENT IN ROOM. PT ANXIOUS ABOUT THE POSSIBILITY OF GANGRENE IN HER MIDDLE RIGHT TOE. PT ALERT AND ORIENTED THIS AFTERNOON AND EVENING.
--- NOTE | 2019-02-02 04:40 | NUR ---
COVERING PRIMARY RN ON LUNCH BREAK. MEDICATED PT FOR PAIN TO RLE WITH 1 MG IV DILAUDID SEE EMAR.
[2019-02-02 04:49] LABS: BASOPHILS ABSOLUTE AUTO 0.05 K/mm3 (0.00-0.23); BASOPHILS PERCENT AUTO 1 % (0-2); EOSINOPHILS ABSOLUTE AUTO 0.59 K/mm3 (0.00-0.68); EOSINOPHILS PERCENT AUTO 6 % (0-6); Hematocrit 29.2 % (33.0-51.0); Hemoglobin 9.7 g/dL (11.5-16.0); IMMATURE GRAN ABSOLUTE AUTO 0.11 K/mm3 (0.00-0.10); IMMATURE GRAN PERCENT AUTO 1 % (0-1); LYMPHOCYTES ABSOLUTE AUTO 2.27 K/mm3 (0.84-5.20); LYMPHOCYTES PERCENT AUTO 23 % (21-46); MONOCYTES ABSOLUTE AUTO 0.91 K/mm3 (0.16-1.47); MONOCYTES PERCENT AUTO 9 % (4-13); Mean Corpuscular HGB 30.5 pg (26.0-34.0); Mean Corpuscular HGB Conc 33.2 g/dL (31.5-36.5); Mean Corpuscular Volume 92 fL (80-100); Mean Platelet Volume 9.6 fL (9.1-12.4); NEUTROPHILS ABSOLUTE AUTO 5.88 K/mm3 (1.96-9.15); NEUTROPHILS PERCENT AUTO 60 % (41-73); Platelet Count 302 K/mm3 (150-400); RDW Coefficient Variation 13.2 % (11.7-14.2); RDW Standard Deviation 44.2 fL (35.1-46.3); Red Blood Cell Count 3.18 M/mm3 (3.80-5.20); White Blood Cell Count 9.81 K/mm3 (4.00-11.30)
[2019-02-02 05:05] LABS: Anion Gap 5 mmol/L (6-16); Blood Urea Nitrogen 11 mg/dL (8-24); Bun/Creatinine Ratio 17.5 (12.0-20.0); CO2, Blood 30 mmol/L (21-32); Calcium, Blood 8.9 mg/dL (8.5-10.1); Chloride, Blood 102 mmol/L (98-108); Creatinine, Blood 0.63 mg/dL (0.40-1.00); Glomerular Filtration Rate >60 (60-); Glucose, Blood 115 mg/dL (70-99); Sodium, Blood 137 mmol/L (136-145)
--- NOTE | 2019-02-02 06:32 | NUR ---
SHIFT SUMMARY: VSS. AFEB. A/OX4. COMMUNICATING NEEDS. REPORTING SEVERE PAIN 8/10 IN RLE THROUGH THE NIGHT. PRN DILAUDID EFFECTIVELY MANAGING PAIN BRINGING IT DOWN TO 5/10 BUT AROUND THE 2 HOUR POINT SINCE THE LAST DOSE, PT HAS BEEN REQUESTING PRN PAIN MED AGAIN. SHE HAS BEEN UP TOE TOUCH BEARING USING FWW IN ROOM. INDEPENDENTLY USING BATHROOM. RLE VISIBLY LARGER IN CIRCUMFERENCE COMPARED TO LEFT. RLE IS RED, AND WARM TO THE TOUCH. CAP REFILL 3 SEC IN BLE. PEDAL PULSES PALPABLE. FEMORAL INSERTION POINTS ARE WITHOUT ERYTHEMA AND WITHOUT HEMATOMA BILATERALLY. BOTH SITES COVERED WITH TRANSPARENT DRESSING. HAS MENTIONED CONCERN ABOUT ABILITY TO AFFORD DRESSINGS AND PAIN MEDS WHEN DISCHARGED.
[2019-02-02] MEDS ORDERED: ACET325 PO (12:08)
[2019-02-02] MEDS ORDERED: CLOP75 (12:08)
[2019-02-02] MEDS ORDERED: DOCU100 PO (12:09)
[2019-02-02] MEDS ORDERED: HYDR1TAB94 PO (12:13)
[2019-02-02] MEDS ORDERED: MELA3 (12:16)
[2019-02-02] MEDS ORDERED: Nicoderm Cq1 EAC1 TOP (12:16)
[2019-02-02] MEDS ORDERED: ONDA4ODT PO (12:18)
[2019-02-02] MEDS ORDERED: XARELTO15 M1 PO (12:20)
[2019-02-02] MEDS ORDERED: SENN187 PO (12:21)
[2019-02-02] MEDS ORDERED: METO50 PO (12:26)
--- NOTE | 2019-02-02 13:05 | NUR ---
PT HAS BEEN A/O X 4 AND HAS BEEN UP IN HER ROOM WITH A FWW TO AMBULATE TO THE BATHROOM. DRESSING TO RIGHT TOES WAS CHANGED AND EDUCATION WAS PROVIDED ON WOUND CARE TO RIGHT TOES AND PT VERBALIZES AN UNDERSTANDING. PT WAS DCD HOME WITH FRIEND. RX FAXED TO [facility] PER PT REQUEST. ALL ORDERS AND FOLLOW UP REVIEWED WITH PT. CASE MANAGEMENT WILL CALL WITH APPT DATES AND TIMES. REFERRAL FOR THE WOUND CLINIC WAS ALSO ORDERED. IVS WERE REMOVED WITH NO ISSUE. ALL PERSONAL BELONGINGS SENT WITH PT. PT STABLE UPON DC.
== END 2019-02-02 13:05 | disposition home or self-care (01) | DRG 253 ==
LOC: ER 16:07 → ICUW 21:53 → MEDS 21:53 → ICUW 01-29 13:12 → MEDS 02-01 15:05 → ENPENDDIS 02-02 11:31 → MEDS 02-02 13:05
PROVIDERS: Emergency Medicine; Family Medicine; Nurse Practitioner Acute Care; Radiology Diagnostic Radiology; ADMIT Hospitalist
PROC: 047L3ZZ Dilation of Left Femoral Artery, Percutaneous Approach (ICD-10-PCS; principal; 2019-01-29)
PROC: 047P3ZZ Dilation of Right Anterior Tibial Artery, Percutaneous Approach (ICD-10-PCS; 2019-01-30)
PROC: 06H03DZ Insertion of Intraluminal Device into Inferior Vena Cava, Percutaneous Approach (ICD-10-PCS; 2019-01-31)
PROC: 047R3ZZ Dilation of Right Posterior Tibial Artery, Percutaneous Approach (ICD-10-PCS; 2019-01-31)
PROC: 047M3ZZ Dilation of Right Popliteal Artery, Percutaneous Approach (ICD-10-PCS; 2019-01-31)
DX: I70.291 Other atherosclerosis of native arteries of extremities, right leg (principal); D68.51 Activated protein C resistance; I82.431 Acute embolism and thrombosis of right popliteal vein; F17.210 Nicotine dependence, cigarettes, uncomplicated; I73.89 Other specified peripheral vascular diseases; Z59.0 Homelessness; F12.20 Cannabis dependence, uncomplicated
CPT/HCPCS: 36415; 37191; 37211; 37214; 37224; 37226; 37228; 37232; 75625; 75710; 75716; 75774; 76937; 80048; 80053; 80069; 81001; 85014; 85018; 85025; 85347; 85384; 85610; 85730; 87081; 93926; 93971; 96374; 96375; 97110; 97162; 97530; 99152; 99153; 99285-25; A9270; A9270-GY; C1725; C1751; C1760; C1769; C1874; C1880; C1887; C1894; J1170; J1644; J2060; J2250; J2405; J2997; J3010; J7030; J7040; Q9967

== ENCOUNTER 2019-02-05 15:06 | Day surgery (SDC) | payer MEDICARE ==
[~2019-02-05 15:06] MED LIST changes: +ACET325 PO; +CLOP75; +DOCU100 PO; +HYDR1TAB94 PO; +LOVENOX100 MG/1 M SC; +MELA3; +METO50 PO; +Nicoderm Cq1 EAC1 TOP; +ONDA4ODT PO; +SENN187 PO; +XARELTO15 M1 PO
== END 2019-02-05 23:02 | disposition home or self-care (01) ==
LOC: WOUND 15:06
DX: I70.235 Atherosclerosis of native arteries of right leg with ulceration of other part of foot (principal); L97.512 Non-pressure chronic ulcer of other part of right foot with fat layer exposed; I96 Gangrene, not elsewhere classified; J45.909 Unspecified asthma, uncomplicated; F41.9 Anxiety disorder, unspecified; F17.210 Nicotine dependence, cigarettes, uncomplicated; F32.9 Major depressive disorder, single episode, unspecified; Z88.0 Allergy status to penicillin; Z88.8 Allergy status to other drugs, medicaments and biological substances
CPT/HCPCS: 87071; 87075; 87076; 87205; G0463; J1650

== ENCOUNTER 2019-02-06 15:02 | Inpatient (IN) | payer MEDICARE ==
[~2019-02-06] VITALS: Ht 170.2 cm; Wt 90.5 kg
[2019-02-06 15:50] LABS: BASOPHILS ABSOLUTE AUTO 0.08 K/mm3 (0.00-0.23); BASOPHILS PERCENT AUTO 1 % (0-2); EOSINOPHILS ABSOLUTE AUTO 0.22 K/mm3 (0.00-0.68); EOSINOPHILS PERCENT AUTO 2 % (0-6); Hematocrit 31.5 % (33.0-51.0); Hemoglobin 10.3 g/dL (11.5-16.0); IMMATURE GRAN ABSOLUTE AUTO 0.22 K/mm3 (0.00-0.10); IMMATURE GRAN PERCENT AUTO 2 % (0-1); LYMPHOCYTES ABSOLUTE AUTO 3.18 K/mm3 (0.84-5.20); LYMPHOCYTES PERCENT AUTO 25 % (21-46); MONOCYTES ABSOLUTE AUTO 0.81 K/mm3 (0.16-1.47); MONOCYTES PERCENT AUTO 6 % (4-13); Mean Corpuscular HGB 30.4 pg (26.0-34.0); Mean Corpuscular HGB Conc 32.7 g/dL (31.5-36.5); Mean Corpuscular Volume 93 fL (80-100); Mean Platelet Volume 9.3 fL (9.1-12.4); NEUTROPHILS ABSOLUTE AUTO 8.39 K/mm3 (1.96-9.15); NEUTROPHILS PERCENT AUTO 65 % (41-73); NRBC ABSOLUTE 0.02 K/mm3 (0.00-0.02); NRBC Auto 0.2 /100 WBC (0.0-0.2); Platelet Count 497 K/mm3 (150-400); RDW Standard Deviation 46.8 fL (35.1-46.3); Red Blood Cell Count 3.39 M/mm3 (3.80-5.20)
[2019-02-06 16:04] LABS: International Normalized Ratio 0.93; Prothrombin Time Results 9.9 Sec (9.7-11.5)
[2019-02-06 16:09] LABS: Alanine Aminotransfer (ALT/SGP 30 U/L (12-78); Albumin, Blood 3.2 g/dL (3.4-5.0); Albumin/Globulin Ratio 0.8 (0.8-1.8); Alk Phos 65 U/L (50-136); Anion Gap 6 mmol/L (6-16); Aspartate Aminotrans (AST/SGOT 13 U/L (12-37); Bilirubin, Total 0.2 mg/dL (0.1-1.0); Blood Urea Nitrogen 18 mg/dL (8-24); Bun/Creatinine Ratio 25.1 (12.0-20.0); CO2, Blood 25 mmol/L (21-32); Calcium, Blood 9.8 mg/dL (8.5-10.1); Chloride, Blood 109 mmol/L (98-108); Creatinine, Blood 0.72 mg/dL (0.40-1.00); Glomerular Filtration Rate >60 (60-); Glucose, Blood 100 mg/dL (70-99); Potassium, Blood 3.7 mmol/L (3.5-5.5); Sodium, Blood 140 mmol/L (136-145); Total Protein, Blood 7.2 g/dL (6.4-8.2)
--- NOTE | 2019-02-07 07:21 | NUR ---
POWER PRESS TENDER SUMMARY Patient had difficult time remaining comfortable enough to sleep overnight. very tearful and frustrated with situation that got her back to the hospital. Right middle toe dark purple, and 4th and 5th toes pinkish purple, scabbed and entire foot is cool to touch with pins and needles. Able to get oob with stand by assist and fww bearing weight on only her left foot. Tamanna states she has a plan for when she gets discharged so that she won't end up sleeping in her car homeless again. A&OX4, pleasant and cooperative with care.
[2019-02-07 08:50] LABS: Hematocrit 30.7 % (33.0-51.0); Mean Corpuscular HGB 31.3 pg (26.0-34.0); Mean Corpuscular HGB Conc 32.6 g/dL (31.5-36.5); Mean Platelet Volume 9.1 fL (9.1-12.4); Platelet Count 514 K/mm3 (150-400); RDW Coefficient Variation 14.4 % (11.7-14.2); RDW Standard Deviation 49.3 fL (35.1-46.3); White Blood Cell Count 12.68 K/mm3 (4.00-11.30)
[2019-02-07 08:51] LABS: Mean Corpuscular Volume 96 fL (80-100)
--- NOTE | 2019-02-07 15:41 | NUR ---
SHIFT SUMMARY: PT IS A/O X 4 WITH ONGOING C/O PAIN TO HER RIGHT FOOT AND TOES. PAIN MEDS HAVE BEEN GIVEN ORDERED. HEPARIN DRIP CONTINUES TO RUN ORDERED. TX WAS COMPLETED TO HER TOES AND ALTHOUGH THEY ARE VERY PAINFUL THEY DO APPEAR TO BE IMPROVING SINCE HER LAST ADMISSION. SHE DOES HAVE SOME SWELLING TO THAT EXTREMITY WELL. PT WORKED WITH THERAPY TODAY. SHE REMAINS A X 1 ASSIST WITH THE FWW. PT IS RESTING IN BED AND CALLS APPROPRIATELY WHEN NEEDED.
--- NOTE | 2019-02-07 21:59 | NUR ---
PATIENT WAS SUPPOSED TO BE ON KEFLES FOR HER TOE WOUNDS PER WOUND NURSE
[2019-02-08 06:04] LABS: BASOPHILS ABSOLUTE AUTO 0.11 K/mm3 (0.00-0.23); BASOPHILS PERCENT AUTO 1 % (0-2); EOSINOPHILS ABSOLUTE AUTO 0.54 K/mm3 (0.00-0.68); EOSINOPHILS PERCENT AUTO 4 % (0-6); Hematocrit 29.9 % (33.0-51.0); Hemoglobin 9.7 g/dL (11.5-16.0); IMMATURE GRAN PERCENT AUTO 1 % (0-1); LYMPHOCYTES PERCENT AUTO 47 % (21-46); MONOCYTES ABSOLUTE AUTO 0.95 K/mm3 (0.16-1.47); MONOCYTES PERCENT AUTO 7 % (4-13); Mean Corpuscular HGB 30.8 pg (26.0-34.0); Mean Corpuscular HGB Conc 32.4 g/dL (31.5-36.5); Mean Corpuscular Volume 95 fL (80-100); Mean Platelet Volume 9.2 fL (9.1-12.4); NEUTROPHILS ABSOLUTE AUTO 5.75 K/mm3 (1.96-9.15); NEUTROPHILS PERCENT AUTO 41 % (41-73); Platelet Count 526 K/mm3 (150-400); RDW Coefficient Variation 14.6 % (11.7-14.2); RDW Standard Deviation 48.5 fL (35.1-46.3); Red Blood Cell Count 3.15 M/mm3 (3.80-5.20); White Blood Cell Count 14.15 K/mm3 (4.00-11.30)
[2019-02-08 06:26] LABS: Alanine Aminotransfer (ALT/SGP 29 U/L (12-78); Albumin, Blood 2.9 g/dL (3.4-5.0); Albumin/Globulin Ratio 0.7 (0.8-1.8); Alk Phos 59 U/L (50-136); Anion Gap 6 mmol/L (6-16); Aspartate Aminotrans (AST/SGOT 11 U/L (12-37); Bilirubin, Total 0.2 mg/dL (0.1-1.0); Blood Urea Nitrogen 12 mg/dL (8-24); Bun/Creatinine Ratio 17.6 (12.0-20.0); CO2, Blood 28 mmol/L (21-32); Calcium, Blood 8.9 mg/dL (8.5-10.1); Chloride, Blood 106 mmol/L (98-108); Creatinine, Blood 0.68 mg/dL (0.40-1.00); Globulin, Blood 3.9 g/dL (2.2-4.0); Glomerular Filtration Rate >60 (60-); Glucose, Blood 102 mg/dL (70-99); Potassium, Blood 3.8 mmol/L (3.5-5.5); Sodium, Blood 140 mmol/L (136-145); Total Protein, Blood 6.8 g/dL (6.4-8.2)
--- NOTE | 2019-02-08 18:05 | NUR ---
SHIFT SUMMARY PATIENT MEDICATED FREQUENTLY WITH IV AND ORAL PRN PAIN MEDICATIONS. PATIENT'S PAIN DIFFICULT TO MANAGE. WOUND CARE COMPLETED ON RIGHT FOOT THIS MORNING. PATIENT UP SBA W/FWW TO BR. HEPARIN DRIP RUNNING AT 24 UNITS/KG. CALL LIGHT IN REACH.
--- NOTE | 2019-02-08 23:02 | NUR ---
BEGINNING SHIFT ASSESSMENT ASSUMED CARE OF PT AT 1900. PT WAS SITTING ON HER BED ROCKING HERSELF. PT IS ALERT AND ORIENTED, ANXIOUS BUT COOPERATIVE AND PATIENT. PT WAS IN PAIN 9/10, MEDICATED PER EMAR. HEART SOUNDS TACHY AND REGULAR, PERIPHERAL PULSES STRONG, WEAK ON HER R FOOT, 20G IV IN R FORARM INFUSING HEPRIN PER EMAR. LUNG SOUNDS CLEAR, DENIES SOB, PRESENTATION SHALLOW. BOWEL TONES HYPERATIVE. R FOOT BANDAGED, PT KNOWS THE ROUTINE AND HAS BROUGHT OWN BANDAGE TO USE NEXT TIME, BRUSING ALONG R LEG AND INSICION SITE AT L GROIN AREA, COVERED WITH ANTIBACTERIA DRESSING. CALL LIGHT IN REACH, BED IN LOWEST POSITION, WILL CONTINUE TO MONITOR.
--- NOTE | 2019-02-09 06:19 | NUR ---
END SHIFT SUMMARY NO ACUTE CHANGES NOTED THROUGHOUT THE SHIFT. PT ASKS FOR PAIN MEDICATION EVERY TWO HOURS, MEDICATED WITH DILAUDID AND NORCO. PT ASKED FOR A CUP OF COFFEE. PT IS SITTING IN BED TALKING WITH HER DAUGHTER ON THE PHONE. CALL LIGHT IN REACH, BED IN LOWEST POSITION, WILL CONTINUE TO MONITOR UNTIL DAYSHIFT NURSE ARRIVES
--- NOTE | 2019-02-09 06:33 | NUR ---
HEPARIN RATE CHANGE TO 32.2 FROM 31.0. VERIFIED WITH IVÁN WILSON.
--- NOTE | 2019-02-09 17:49 | NUR ---
SHIFT SUMMARY PT MEDICATED PRIOR TO SHIFT REPORT AND THEN WENT TO SLEEP. PT WOKE FOR CARE AND THEN ASKED WHEN SHE COULD HAVE MORE IV DILAUDID. PT MEDICATED WITH NORCO PER EMAR. PT STILL WANTING IV DILAUDID; GIVEN WHEN AVAILABLE, BUT PT TALKING AND LAUGHING PRIOR TO ADMINISTRATION WHEN KNOWING THAT SHE WOULD BE GETTING IT. PER REPORT, PT WITH HX OF DRUG ABUSE. DILAUDID CHANGED TO Q4 HRS PRN AND ALTERNATED WITH NORCO. PT DID WELL THRU OUT THE DAY. ABLE TO WORK WITH P/T TODAY AND WALKED OUT IN [place] AND AROUND RM. PT CALLED FOR ASSIST WITH IV PUMP TO GET TO [facility] USING FWW. DR DOLL IN TO SEE PT TODAY DURING DRSG CHANGE TO R FOOT. PT TOLERATED WELL, BUT WAS CONCERNED THAT IT WOULD "HURT", BUT DID NOT. TOES ON R FOOT DARK WITH SCABS AND REDNESS ON TOP AND BOTTOM OF FOOT. PT REPORTED ANGIO PLASTY TO RLE AND WILL NEED TO HAVE DONE AGAIN. CURRENTLY ON HEPARIN DRIP FOR DVT TO R POPLITEAL ARTERY. PT IN CONTACT [facility] FOR HX OF MRSA; PER REPORT, CLEARANCE SWAB SENT. PT IS A&O, ABLE TO MAKE NEEDS KNOWN. CALL LT IN REACH.
--- NOTE | 2019-02-10 00:13 | NUR ---
BEGINNING SHIFT SUMMARY ASSUMED CARE OF PT AT 1900. PT IS ALERT AND ORIENTED. PT IS PAINFUL AND ASKING FOR PAIN MEDICATIONS. HEART SOUNDS REGULAR, PERIPHERAL PULSES ATRONG EXCEPT FOR IN HER R FOOT, IV IN HER L ARM INFUSING HEPRIN PER PHARMACY ORDERS. WHEEZES IN THE APEX OF THE LUNGS, PT STATES ITS PAINFUL TO TAKE DEEP BREATHS. BOWEL TONES HYPERACTIVE, DENIES TENDERNESS. R LEG IS CAROL AND TENDER FROM KNEE DOWN TO FOOT. PT STATES THAT SHE HAS MORE SENSATION IN HER FOOT NOW AND THATS WHY SHES IN MORE PAIN. PAIN STATES THAT THE NORCO DOESNT TOUCH HER PAIN AND SHE ONLY WANTS DILAUDID. PT ALICE AROUND THE CLOCK FOR PAIN MEDICATIONS. CALL LIGHT IN REACH, BED IN LOWEST POSITION, WILL CONTINUE TO MONITOR.
[2019-02-10 04:20] LABS: BASOPHILS ABSOLUTE AUTO 0.08 K/mm3 (0.00-0.23); BASOPHILS PERCENT AUTO 1 % (0-2); EOSINOPHILS ABSOLUTE AUTO 0.57 K/mm3 (0.00-0.68); EOSINOPHILS PERCENT AUTO 5 % (0-6); Hematocrit 33.1 % (33.0-51.0); Hemoglobin 10.8 g/dL (11.5-16.0); IMMATURE GRAN ABSOLUTE AUTO 0.14 K/mm3 (0.00-0.10); IMMATURE GRAN PERCENT AUTO 1 % (0-1); LYMPHOCYTES ABSOLUTE AUTO 4.64 K/mm3 (0.84-5.20); LYMPHOCYTES PERCENT AUTO 38 % (21-46); MONOCYTES PERCENT AUTO 8 % (4-13); Mean Corpuscular HGB Conc 32.6 g/dL (31.5-36.5); Mean Corpuscular Volume 95 fL (80-100); Mean Platelet Volume 9.1 fL (9.1-12.4); NEUTROPHILS ABSOLUTE AUTO 5.75 K/mm3 (1.96-9.15); NEUTROPHILS PERCENT AUTO 47 % (41-73); Platelet Count 632 K/mm3 (150-400); RDW Coefficient Variation 14.4 % (11.7-14.2); RDW Standard Deviation 48.2 fL (35.1-46.3); Red Blood Cell Count 3.48 M/mm3 (3.80-5.20); White Blood Cell Count 12.18 K/mm3 (4.00-11.30)
[2019-02-10 04:39] LABS: Anion Gap 6 mmol/L (6-16); Blood Urea Nitrogen 12 mg/dL (8-24); Bun/Creatinine Ratio 19.3 (12.0-20.0); CO2, Blood 29 mmol/L (21-32); Calcium, Blood 9.8 mg/dL (8.5-10.1); Chloride, Blood 102 mmol/L (98-108); Creatinine, Blood 0.62 mg/dL (0.40-1.00); Glomerular Filtration Rate >60 (60-); Glucose, Blood 124 mg/dL (70-99); Potassium, Blood 4.1 mmol/L (3.5-5.5); Sodium, Blood 137 mmol/L (136-145)
--- NOTE | 2019-02-10 05:43 | NUR ---
END SHIFT SUMMARY NO ACUTE CHANGES NOTED THROUGHOUT THE NIGHT. PT STATED THEY WERE ABLE TO SLEEP BETTER BECAUSE THE DOOR WAS CLOSED. PT CONTINUES TO CALL FOR PAIN MEDICATIONS Q4. HEPRIN DRIP ADJUSTED PER PHARMACY. PT STATES THAT SHE FEELS PAIN ALONG THE OUTER SIDE OF HER FOOT, FOOT IS WARM, TENDER AND LIGHT PINK. CALL LIGHT IN REACH, BED IN LOWEST POSITION, WILL CONTINUE TO MONITOR UNTIL DAYSHIFT NURSE ARRIVES.
--- NOTE | 2019-02-10 17:07 | NUR ---
SHIFT SUMMARY NO ACUTE CHANGES TO PRESENT THIS SHIFT. PT DID BETTER TODAY THAN YESTERDAY. DID NOT C/O PAIN OFTEN OR SEVERE. UP WITH 1P ASSIST TO BTHRM JUST MANAGING IV PUMP PT USES FWW TO KEEP WEIGHT OFF OF R FOOT. DRSG CHANGE DONE AGAIN THIS AFTERNOON PER PT DIRECTIONS. HYDROFERA BLUE ANTIBACTERIAL FOAM, THAT PT OBTAINED FROM [facility], USED BETWEEN TOES. QUITE A BIT OF SLOUGH NOTED ON TOES TODAY, WITH SOME FOUL SMELLING ODER. WOUNDS CLEANSED BEFORE NEW DRSG PLACED. PT REFUSED ORDERED OINTMENT, BUT MAY CHANGE HER MIND TOMORROW SHE SAID. DR NEWELLTRATE IN TO SEE PT THIS AM; PT STARTED ON PO ABX. LIDOCAINE PATCHES ORDERED FOR PT'S BACK PAIN AND PLACED. PT GRATEFUL AND REPORTED IT EFFECTIVE. HEPARIN DRIP CONTINUES TO INFUSE PER PHARMACY. VISITORS IN TO SEE PT THIS AFTERNOON. CALLS FOR ASSIST NEEDED.
--- NOTE | 2019-02-11 04:43 | NUR ---
SHIFT SUMMARY PATIENT HAD NO ACUTE CHANGES OBSERVED. AXO X4 AND SBA TO BR. REPORTS RLE PAIN AND ALTERNATING IV DILAUDID ONE MG AND NORCO X TWO TABS PER EMAR. PIV REMAINS INTACT. HEPARIN INFUSING MANAGED BY PHARMACY. LIDOCAINE PATCH OFF LOW BACK. VSS/AFEBRILE. DENIES SOB AND N/V. CALL LIGHT IN REACH. BED IN LOWEST POSITION. WILL CONTINUE TO MONITOR UNTIL DAY SHIFT NURSE ASSUMES CARE.
[2019-02-11 05:46] LABS: BASOPHILS ABSOLUTE AUTO 0.12 K/mm3 (0.00-0.23); BASOPHILS PERCENT AUTO 1 % (0-2); EOSINOPHILS ABSOLUTE AUTO 0.44 K/mm3 (0.00-0.68); EOSINOPHILS PERCENT AUTO 3 % (0-6); Hematocrit 36.7 % (33.0-51.0); Hemoglobin 11.8 g/dL (11.5-16.0); IMMATURE GRAN ABSOLUTE AUTO 0.16 K/mm3 (0.00-0.10); IMMATURE GRAN PERCENT AUTO 1 % (0-1); LYMPHOCYTES ABSOLUTE AUTO 4.78 K/mm3 (0.84-5.20); LYMPHOCYTES PERCENT AUTO 32 % (21-46); MONOCYTES ABSOLUTE AUTO 0.92 K/mm3 (0.16-1.47); MONOCYTES PERCENT AUTO 6 % (4-13); Mean Corpuscular HGB 30.6 pg (26.0-34.0); Mean Corpuscular HGB Conc 32.2 g/dL (31.5-36.5); Mean Corpuscular Volume 95 fL (80-100); Mean Platelet Volume 9.5 fL (9.1-12.4); NEUTROPHILS ABSOLUTE AUTO 8.41 K/mm3 (1.96-9.15); NEUTROPHILS PERCENT AUTO 57 % (41-73); Platelet Count 670 K/mm3 (150-400); RDW Coefficient Variation 14.6 % (11.7-14.2); RDW Standard Deviation 50.3 fL (35.1-46.3); Red Blood Cell Count 3.86 M/mm3 (3.80-5.20); White Blood Cell Count 14.83 K/mm3 (4.00-11.30)
[2019-02-11 06:03] LABS: Anion Gap 7 mmol/L (6-16); Blood Urea Nitrogen 14 mg/dL (8-24); Bun/Creatinine Ratio 16.7 (12.0-20.0); CO2, Blood 28 mmol/L (21-32); Calcium, Blood 10.1 mg/dL (8.5-10.1); Chloride, Blood 101 mmol/L (98-108); Creatinine, Blood 0.84 mg/dL (0.40-1.00); Glomerular Filtration Rate >60 (60-); Glucose, Blood 105 mg/dL (70-99); Potassium, Blood 4.3 mmol/L (3.5-5.5); Sodium, Blood 136 mmol/L (136-145)
--- NOTE | 2019-02-11 15:43 | NUR ---
SHIFT SUMMARY: PT IS A/O X 4 AND CONTINUES TO C/O OF CONSTANT RIGHT TOE AND FOOR PAIN. PAIN MEDS HAVE BEEN GIVEN ORDERED THROUGHOUT THE DAY. TX ORDERS FOR HER TOE WERE UPDATED TO MATCH HER TX AT THE [facility] PER DR RANGEL. PT CONTINUES ON HEPARIN DRIP ORDERED. PT WAS CLEARED FROM CONTACT ISOLATION PER INFECTION CONTROL NURSE AND ENVIRONMENTAL SERVICES WAS NOTIFIED. PT IS RESTING IN HER BED AND IS ABLE TO MAKE HER NEEDS KNOW AND CALLS APPROPRIATELY WHEN NEEDED.
--- NOTE | 2019-02-11 21:35 | NUR ---
PT REMOVED KERLEX AND COTTON NETTING FROM FOOT DX. HYDROFERA BLUE REMAINED C/D/I. AFFECTED TOES ARE PURPLE/PRICE/DUSKY. KERLEX AND NETTING REPLACED. FOOT IS COOL BUT PULSES PALPABLE/INTACT.
--- NOTE | 2019-02-12 01:30 | NUR ---
PT BEING MEDICATED FREQUENTLY FOR R.FOOT PAIN W/STAFF ALTERNATING BETWEEN NORCO 2 TABS AND DILUADID 1MG IV. PT NEVER REPORTS PAIN BETTER THEN -09/19 BUT DOES HAVE ENOUGH RELIEF TO FALL ASLEEP AND GET DECENT PERIODS OF REST. PT SLEEPING NOW W/O S/S PAIN.
[2019-02-12 05:07] LABS: BASOPHILS ABSOLUTE AUTO 0.08 K/mm3 (0.00-0.23); BASOPHILS PERCENT AUTO 1 % (0-2); EOSINOPHILS ABSOLUTE AUTO 0.39 K/mm3 (0.00-0.68); EOSINOPHILS PERCENT AUTO 3 % (0-6); Hematocrit 32.3 % (33.0-51.0); Hemoglobin 10.5 g/dL (11.5-16.0); IMMATURE GRAN ABSOLUTE AUTO 0.09 K/mm3 (0.00-0.10); IMMATURE GRAN PERCENT AUTO 1 % (0-1); LYMPHOCYTES ABSOLUTE AUTO 4.25 K/mm3 (0.84-5.20); LYMPHOCYTES PERCENT AUTO 34 % (21-46); MONOCYTES ABSOLUTE AUTO 0.95 K/mm3 (0.16-1.47); MONOCYTES PERCENT AUTO 8 % (4-13); Mean Corpuscular HGB 30.3 pg (26.0-34.0); Mean Corpuscular HGB Conc 32.5 g/dL (31.5-36.5); Mean Corpuscular Volume 93 fL (80-100); Mean Platelet Volume 9.4 fL (9.1-12.4); NEUTROPHILS ABSOLUTE AUTO 6.71 K/mm3 (1.96-9.15); NEUTROPHILS PERCENT AUTO 54 % (41-73); Platelet Count 594 K/mm3 (150-400); RDW Coefficient Variation 14.4 % (11.7-14.2); RDW Standard Deviation 48.6 fL (35.1-46.3); Red Blood Cell Count 3.46 M/mm3 (3.80-5.20); White Blood Cell Count 12.47 K/mm3 (4.00-11.30)
[2019-02-12 05:22] LABS: Anion Gap 7 mmol/L (6-16); Blood Urea Nitrogen 18 mg/dL (8-24); Bun/Creatinine Ratio 18.9 (12.0-20.0); CO2, Blood 28 mmol/L (21-32); Calcium, Blood 9.9 mg/dL (8.5-10.1); Chloride, Blood 101 mmol/L (98-108); Creatinine, Blood 0.95 mg/dL (0.40-1.00); Glomerular Filtration Rate >60 (60-); Glucose, Blood 90 mg/dL (70-99); Potassium, Blood 4.8 mmol/L (3.5-5.5); Sodium, Blood 136 mmol/L (136-145)
--- NOTE | 2019-02-12 05:31 | NUR ---
SUMMARY: A/OX4, CALLS APPROPRIATELY AND MOSTLY INDEPENDENT IN ROOM. PT REMAINS ON HEPARIN GTT AT 29 UN/KG/HR (36 ML/HR). KERLEX AND COTTON NETTING WERE REPLACED TO R.FOOT D/T PT REMOVING THEM. TOES NOTED PURPLE/PRICE AND DUSKY WITH SCABBING, PEDAL PULSES INTACT AND FOOT COOL. HYDROFERA BLUE DX REMAINED C/D/I AND IS DUE TO BE CHANGED TODAY/TOMORROW PRN. SHE'S BEEN MEDICATED REGULARLY T/O NOCTE FOR C/O -10/20 R.FOOT PAIN W/2 TABS NORCO X3 AND DILAUDID 1MG IV X3. PT BECOMES VERY RESTLESS AND EMOTIONAL PRIOR TO PAIN MEDS BUT SLEEPS COMFORTABLY AFTER. NO ACUTE CHANGES, VSS/AFBRILE. WCTM AND REPORT TO DAY RN.
--- NOTE | 2019-02-12 19:43 | NUR ---
SHIFT SUMMARY PT HAS BEEN SLEEPING A LOT OF THE SHIFT. PT HAS BEEN RECEIVING PAIN MEDICATIONS PER EMAR. PT HAD INCREASED PAIN MEDICATION THIS AFTERNOON AND RECEIVED EXTRA DOSE OF PAIN MEDICATION PER DR. RANGEL ORDERS. NO ACUTE CHANGES THIS SHIFT. WAITING FOR DR. MUSA TO SEE PT. HEPARIN INFUSING WITHOUT DIFFICULTY. CALL LIGHT IN REACH. REPORT GIVEN TO NICHOLAS WILSON.
--- NOTE | 2019-02-12 19:45 | NUR ---
PATIENT IN ROOM COMPLAINING OF PAIN THAT HAS BEEN RESOLVED BY THE PRESCRIBED MEDS. STATES THE NORCO DOES NOT TOUCH HER PAIN AND THE DILAUDID IV ONLY LAST 20-30MIN TOPS. STATES HER ANXIETY IS UP, WHICH IS CAUSING HER HEART RATE TO BE ABOVE 100, SHE IS VERY UNCOMFORTABLE AND RESTLESS IN ROOM. DRESSING CHANGED TO THE 3RD AND 4TH TOE IN BETWEEN, WOUNDS ARE DRAINING SLIGHTLY. NOTICED FOX SKIN CARVER OUT IN [place]. GRABBED HER TO ADDRESS THE PATIENTS PAIN AND ANXIETY. STATES THAT SHE CHANGED SOME MEDICATIONS AROUND, INCREASING HER GABAPENTIN, DC'D HER NORCO AND PLACED HER ON PO DILAUDID INSTEAD. INFORMED THE PATIENT OF THIS. WILL MEDICATE PER ORDERS.
--- NOTE | 2019-02-13 02:49 | NUR ---
PATIENT GOT UP TO USE THE BATHROOM, CALLED FOR A PAIN PILL. STATES SHE IS EXCITED CAUSE HER PAIN IS NOT THE 9-10 THAT IT HAS BEEN RUNNING ALL DAY. SHE WAS VERY HAPPY THAT SHE WAS ABLE TO SLEEP. HER ANXIETY IS DOWN, AND SHE STATES HER PAIN IS 7/10 BUT IT IS NOT THE THROBBING PAIN IT WAS BEFORE, IT IS JUST A BURNING SENSATION. SHE HOPES THAT THIS PAIN PILL JUST GIVEN WILL BRING HER PAIN DOWN FURTHER AND IN HOPES SHE CAN SLEEP THE REST OF THE NIGHT.
--- NOTE | 2019-02-13 05:33 | NUR ---
SHIFT SUMMARY: 44 Y/O FEMALE ADMITTED FOR THROMBOSIS. VS HAVE REMAINED STABLE. PAIN WAS ELEVATED AT START OF SHIFT, STATING THE PAIN MEDS HAD NOT BEEN WORKING FOR HER OTHER THEN 20-30MINS AT A TIME. SHE WAS TAKING AROUND THE CLOCK PAIN MEDS THROUGHOUT THE DAY WITH PAIN AVERAGING 9/10 PER PATIENT. DICUSSED WITH FOX LOPEZ WHO WAS IN THE [place] THE SITUATION. SHE ASSESSED THE PATIENT AND CHANGED HER MEDS AROUND. SHE INCREASED HER GABAPENTIN, STARTED HER ON DILAUDID AND DC'D HER NORCO, ALSO WAS STARTED ON ATIVAN. SHE IMMEDIATLY IMPROVED AFTER ATIVAN WAS GIVEN. THIS DECREASED HER HR AND ANXIETY THAT WAS RELATED ABOUT PAIN. GAVE PO DILAUDID TWICE TONIGHT WITH GOOD RESULTS. EACH TIME LASTING THE 4 HOURS WITH DECREASED IN PAIN BY 2-3 POINTS. SHE STATES SHE IS MUCH HAPPIER WITH NEW TREATMENT, THE PAIN EVEN THOUGH IS NOT GONE BUT SEVERITY HAS CHANGED FROM THROBBING SHARB PAIN TO DULL BURNING WHICH WAS MORE TOLERATBLE. SHE WAS ABLE TO SLEEP IN BETWEEN PAIN MEDS WELL. HEPARIN CONTINUED TO INFUSE WITH NO DIFFICULTY. DRESSING TO TOES WAS CHANGED. CALL LIGHT REMAINED IN REACH, WILL REPORT TO DAY SHIFT RN.
[2019-02-13 05:59] LABS: BASOPHILS ABSOLUTE AUTO 0.08 K/mm3 (0.00-0.23); BASOPHILS PERCENT AUTO 1 % (0-2); EOSINOPHILS ABSOLUTE AUTO 0.29 K/mm3 (0.00-0.68); EOSINOPHILS PERCENT AUTO 3 % (0-6); Hematocrit 32.1 % (33.0-51.0); Hemoglobin 10.4 g/dL (11.5-16.0); IMMATURE GRAN ABSOLUTE AUTO 0.08 K/mm3 (0.00-0.10); IMMATURE GRAN PERCENT AUTO 1 % (0-1); LYMPHOCYTES ABSOLUTE AUTO 2.93 K/mm3 (0.84-5.20); LYMPHOCYTES PERCENT AUTO 29 % (21-46); MONOCYTES ABSOLUTE AUTO 0.75 K/mm3 (0.16-1.47); MONOCYTES PERCENT AUTO 7 % (4-13); Mean Corpuscular HGB 30.9 pg (26.0-34.0); Mean Corpuscular HGB Conc 32.4 g/dL (31.5-36.5); Mean Corpuscular Volume 95 fL (80-100); NEUTROPHILS ABSOLUTE AUTO 6.14 K/mm3 (1.96-9.15); NEUTROPHILS PERCENT AUTO 60 % (41-73); Platelet Count 551 K/mm3 (150-400); RDW Coefficient Variation 14.4 % (11.7-14.2); RDW Standard Deviation 50.1 fL (35.1-46.3); Red Blood Cell Count 3.37 M/mm3 (3.80-5.20); White Blood Cell Count 10.27 K/mm3 (4.00-11.30)
[2019-02-13 06:17] LABS: Anion Gap 9 mmol/L (6-16); Blood Urea Nitrogen 14 mg/dL (8-24); Bun/Creatinine Ratio 17.9 (12.0-20.0); CO2, Blood 26 mmol/L (21-32); Calcium, Blood 9.8 mg/dL (8.5-10.1); Chloride, Blood 102 mmol/L (98-108); Creatinine, Blood 0.78 mg/dL (0.40-1.00); Glomerular Filtration Rate >60 (60-); Glucose, Blood 107 mg/dL (70-99); Potassium, Blood 4.2 mmol/L (3.5-5.5); Sodium, Blood 137 mmol/L (136-145)
--- NOTE | 2019-02-13 09:47 | NUR ---
ASSUMED CARE PT ARRIVED TO ICU FROM TANK WORKER ~09. SHE HAS TPA 1MG/HR, AND HEPARIN 6 UNITS/HR VIA SHEATH IN HER LEFT FEMORAL ARTERY. AREA AROUND LEFT FEMORAL SITE IS TENDER AND HAS HARD SPOTS FROM PREVIOUS CATH PROCEDURES. BUT MAINLY SOFT. SHE IS IN SEVERE PAIN AND AGONY. SCREAMING, YELLING, THRASHING ABOUT, SAYING SHE WANTS TO . I HAVE GIVEN HER ALL HER PRN'S AVAILABLE. WILL CALL HOSPITALIST AND LENCHO FOR FURTHER ORDERS. PT'S RIGHT LEG, LEFT GROIN SITE, AND 'CROTCH' IS SOURCE OF PAIN.
--- NOTE | 2019-02-13 14:30 | NUR ---
1400 MEDS NOT GIVEN UNTIL PATIENT WAKES UP AND IS ABLE TO COOPERATE, AND NOT BE AN ASPIRATION RISK.
--- NOTE | 2019-02-13 14:55 | NUR ---
THROUGHOUT DAY SINCE TRANSFER AT 0905; PT HAS BEEN DISREGARDING ANY EDUCATION/TEACHING. SHE CONTINUES TO THRASH ABOUT, BENDING LEGS, LEANING FOWARD BY FLEXING AT THE HIPS. MYSELF, WELL OTHER NURSES, HAVE BEEN DISCUSSING WITH HER THE IMPORTANCE OF LYING FLAT. SHE WAS TOLD THE COMPLICATIONS OF WHAT COULD HAPPEN IF SHE CONTINUED TO THRASH ABOUT. SHE SEEMS TO LISTEN AT FIRST, BUT COMPLAINS OF SEVERE PAIN (WHICH WAS TREATED). AND THEN ALMOST IMMEDIETLY BEGINS TO MOVE AGAIN. I HAVE CALLED FOR MORE PAIN/ANXIETY ORDERS AND MEDICATED APPROPRIATELY. RESTRAINTS WERE APPLIED TO THE LOWER EXTREMETIES, AND A PEPE WAS APPLIED. AROUND 1330. SHE IS CURRENTLY QUIET FOR THE FIRST TIME, SLEEPING AND LYING FLAT. HER SITE STARTED TO OOZE EARLIER, BUT THE DRESSING WAS CHANGED, AND SHE HAS SINCE STOPPED BLEEDING. A MARIE WAS INSERTED DUE TO HER NEEDING TO PEE WITHOUT HER BEING ABLE TO GET UP. BED LOW AND LOCKED. CALL LIGHT WITHIN REACH.
[2019-02-13 16:01] LABS: Source, Urine Catheter
[2019-02-13 16:21] LABS: Bilirubin, Urine Neg (Neg); Blood, Urine 4+ (Neg); Glucose Qualitative, Urine Neg (Neg); Ketones, Urine Neg (Neg); Leukocyte Esterase, Urine Neg (Neg); Nitrite, Urine Neg (Neg); Protein, Urine 3+ (Neg); Urobilinogen, Urine NORM (Normal); pH, Urine 6.5 (5.0-8.0)
[2019-02-13 16:35] LABS: Appearance, Urine Clear (Clear); Color, Urine Yellow (P-Yellow)
[2019-02-13 16:36] LABS: Squamous Epithelial Cells Few /hpf (Few); White Blood Cells, Urine 0-2 /hpf (0-5)
[2019-02-13 16:37] LABS: Bacteria Few /hpf; Granular Casts 0-2 /lpf (0)
--- NOTE | 2019-02-13 18:53 | NUR ---
SHIFT SUMMARY PT REMAINS ASLEEP FOR THE LAST FEW HOURS OF THE SHIFT. SHE HAS KEPT THE SAME RANGE IN HR, AND BP HAS STAYED MILDLY ELEVATED TO NORMAL. SHE HAS MAINTAINED HER SATS AND RR IS 12-22. PRIOR TO THIS - SHE WAS IN SEVERE PAIN, AND WAS SUPER ANXIOUS AND AGITATED. SHE COULD NOT STAY STILL NO MATTER WHAT YOU TOLD HER. SHE WAS RISKING HER LIFE, BY DISLODGING THE SHEATH SO SHE WAS PUT IN RESTRAINTS. BILATERAL SWB AND A PEPE. SHE HAS tPA INFUSING AT 0.25MG/HR, AND HEPARIN INFUSING AT 300 UNITS/HR (6ML/HR). LEFT FEM SITE WAS NONTENDER, STOPPED BLEEDING, AND SEMI-SOFT IN THE AREA. PREVIOUS CATH SITE IS PRESENT. SHE HAS A MARIE CATHETER AND IT DRAINED 400ML OF ORANGE-YELLOW URINE. SHE HAS HAD NO COMPLAINTS THE LAST FEW HOURS. BED IS LOW AND LOCKED. CALL LIGHT WITHIN REACH.
[2019-02-14 03:09] LABS: BASOPHILS ABSOLUTE AUTO 0.06 K/mm3 (0.00-0.23); BASOPHILS PERCENT AUTO 1 % (0-2); EOSINOPHILS ABSOLUTE AUTO 0.13 K/mm3 (0.00-0.68); EOSINOPHILS PERCENT AUTO 1 % (0-6); Hematocrit 30.5 % (33.0-51.0); Hemoglobin 10.1 g/dL (11.5-16.0); IMMATURE GRAN ABSOLUTE AUTO 0.09 K/mm3 (0.00-0.10); IMMATURE GRAN PERCENT AUTO 1 % (0-1); LYMPHOCYTES ABSOLUTE AUTO 2.76 K/mm3 (0.84-5.20); LYMPHOCYTES PERCENT AUTO 29 % (21-46); MONOCYTES PERCENT AUTO 12 % (4-13); Mean Corpuscular HGB 31.2 pg (26.0-34.0); Mean Corpuscular HGB Conc 33.1 g/dL (31.5-36.5); Mean Corpuscular Volume 94 fL (80-100); Mean Platelet Volume 9.1 fL (9.1-12.4); NEUTROPHILS ABSOLUTE AUTO 5.29 K/mm3 (1.96-9.15); NEUTROPHILS PERCENT AUTO 56 % (41-73); Platelet Count 304 K/mm3 (150-400); RDW Coefficient Variation 14.5 % (11.7-14.2); RDW Standard Deviation 49.7 fL (35.1-46.3); Red Blood Cell Count 3.24 M/mm3 (3.80-5.20); White Blood Cell Count 9.43 K/mm3 (4.00-11.30)
[2019-02-14 03:25] LABS: Anion Gap 10 mmol/L (6-16); Blood Urea Nitrogen 13 mg/dL (8-24); Bun/Creatinine Ratio 18.1 (12.0-20.0); CO2, Blood 26 mmol/L (21-32); Calcium, Blood 9.2 mg/dL (8.5-10.1); Chloride, Blood 101 mmol/L (98-108); Creatinine, Blood 0.72 mg/dL (0.40-1.00); Glomerular Filtration Rate >60 (60-); Glucose, Blood 104 mg/dL (70-99); Potassium, Blood 3.8 mmol/L (3.5-5.5); Sodium, Blood 137 mmol/L (136-145)
--- NOTE | 2019-02-14 06:01 | NUR ---
SHIFT SUMMARY PATIENT SLEPT OFF AND ON THROUGH NIGHT. PULSES STILL PALPABLE IN BLEs, 1+. CATH SITE STILL HAS DRIED BLOOD UNDER DRESSING, NO NEW BLOOD, OLD DRAINAGE WAS MARKED AT BEGIN OF SHIFT. PAIN WELL CONTROLLED WITH PRN DILAUDID, FENTANYL. VSS. WILL CONTINUE TO MONITOR.
--- NOTE | 2019-02-14 07:45 | NUR ---
ASSUMED CARE PT IS IN BED ASLEEP. VITALS STABLE. SHE IS LYING FLAT. HER LEFT FEM GROIN SITE SHOWS NOW SIGHS OF BLEEDING. THAT SITE FEELS THE SAME IT DID YESTERDAY, MAINLY SOFT, WITH HARD SPOTS. SHE IS ON 1L NC WHILE ASLEEP. LETTING HER SLEEP LONG POSSIBLE, DUE TO HER EXTREEME PAIN WHEN AWAKE. BED IS LOW AND LOCKED.
--- NOTE | 2019-02-14 10:28 | NUR ---
DR. NEWELLTRATE IN ROOM TALKING TO PATIENT RIGHT NOW.
--- NOTE | 2019-02-14 18:14 | NUR ---
UPDATE DR. LADD SAW PT, HE UNDRESSED FOOT DRESSING AND WILL COME BACK IN THE AM TOMORROW AFTER VIEWING XRAYS AND ANTICIPATED HOTEL DINING ROOM CASHIER PROCEDURE. I CLEANSED THE WOOD WITH SKINTEGRITY AND USED HYDROFERA BLUE BETWEEN THE TOES. THEN I WRAPPED IT IN KERLEX. THERE IS DEFINITELY SOME WET (POSSIBLY SOME DRY) GANGRENE GOING ON. DR. LADD DISCUSSED WITH PT THE POSSIBILITY OF REMOVING TOES. TALKED WITH DR. MUSA - HE STILL PLANS ON DOING HER PROCEDURE TODAY. UNSURE WHEN THIS WILL BE, IT SOUNDS LIKE THEY ARE VERY BUSY IN THE [facility]ART CENTER TODAY. FAR HER PAIN, IT IS VERY INTERMITTANT. BUT BETWEEN MEDS SHE BECOMES VERY ANXIOUS AND IN EXTREEME PAIN. SCREAMING, CRYING, THRASHING AROUND, ETC... WHICH IS VERY DANGEROUS FOR HER SINCE SHE HAS A SHEATH IN HER LEFT FEMORAL ARTERY. SHE HAS A HISTORY OF DRUG USE, AND HAS A HIGH TOLERANCE TO OPIATES AND BENZOS.
--- NOTE | 2019-02-14 18:27 | NUR ---
SHIFT SUMMARY PT DID NOT GO TO ELECTROCARDIOGRAPH OPERATOR TODAY, HOWEVER, SPOKE WITH LENCHO IN THE AFTERNOON AND HE STATED THAT HE STILL PLANS ON DOING HER PROCEDURE TODAY, BUT AFTER SOME OTHER CASES. SHE HAS BEEN LYING FLAT ALL DAY, WITH SMALL ADJUSTMANTS IN HER WEIGHT BEARING AREAS. HER LEFT FEM SITE LOOKS WNL, NONTENDER, MAINLY SOFT. SHE HAS HEPARIN INFUSING AT 19.5 UNITS/KG/HOUR THROUGH THE SHEATH. HER DRESSING ON HER RIGHT FOOT WAS CLEANSED AND CHANGED THIS EVENING. DR. LADD WAS CONSULTED AND ORDERED XRAYS, AND EVALUATED FOOT. SHE HAD ADEQUATE URINE OUTPUT, BUT NO BM. SHE HAS BEEN IN IMMENSE PAIN FROM HER RIGHT FOOT, WHICH MAKES HER VERY AGITATED/ANXIOUS AND MAKES HER PERCIEVE THE PAIN TO BE WAY WORSE. JESSICA BEEN MEDICATING HER AROUND THE CLOCK WITH ALL HER PRN'S. BECAUSE WHEN SHE IS AGITATED AND ANXIOUS SHE MOVES A LOT PUTTING HERSELF AT RISK FOR BLEEDING OR DISLODGING A CLOT. BED IS LOW AND LOCKED. CALL LIGHT WITHIN REACH.
--- NOTE | 2019-02-14 19:18 | NUR ---
RECEIVED REPORT ON PT FROM CAROLINA WILSON. SADDLE MAKER TEAM HERE TO TAKE PT. PT WENT VIA BED WITH SHEATH TO L GROIN WITH HEPARIN INFUSING.
--- NOTE | 2019-02-14 21:30 | NUR ---
PT BACK TO ROOM FROM ICE GRINDER. HAS FEMOSTOP IN PLACE TO L GROIN. RELEASED SOME AIR AND SITE STILL LOOKS GOOD. HAS STRONG PALPABLE PEDAL PULSE ON L FOOT. R FOOT HAS WOUNDS TO TOES. R FOOT IS WARM AND LIGHT RED ON TOP OF FOOT WITH GOOD CAP REFILL. ABLE TO FIND POSTERIOR TIB AND PEDAL PULSE BY DOPPLER. PT IS A/O TO PERSON, PLACE, PROCEDURE. CALM AND COOPERATIVE.
--- NOTE | 2019-02-15 00:12 | NUR ---
HEPARIN INCREASED PER PHARMACY ORDERS
[2019-02-15 03:37] LABS: BASOPHILS ABSOLUTE AUTO 0.08 K/mm3 (0.00-0.23); BASOPHILS PERCENT AUTO 1 % (0-2); EOSINOPHILS ABSOLUTE AUTO 0.35 K/mm3 (0.00-0.68); EOSINOPHILS PERCENT AUTO 3 % (0-6); Hematocrit 29.5 % (33.0-51.0); Hemoglobin 9.6 g/dL (11.5-16.0); IMMATURE GRAN ABSOLUTE AUTO 0.15 K/mm3 (0.00-0.10); IMMATURE GRAN PERCENT AUTO 1 % (0-1); LYMPHOCYTES ABSOLUTE AUTO 2.14 K/mm3 (0.84-5.20); LYMPHOCYTES PERCENT AUTO 19 % (21-46); MONOCYTES ABSOLUTE AUTO 1.11 K/mm3 (0.16-1.47); MONOCYTES PERCENT AUTO 10 % (4-13); Mean Corpuscular HGB 30.4 pg (26.0-34.0); Mean Corpuscular HGB Conc 32.5 g/dL (31.5-36.5); Mean Corpuscular Volume 93 fL (80-100); Mean Platelet Volume 9.7 fL (9.1-12.4); NEUTROPHILS ABSOLUTE AUTO 7.76 K/mm3 (1.96-9.15); NEUTROPHILS PERCENT AUTO 67 % (41-73); Platelet Count 266 K/mm3 (150-400); RDW Coefficient Variation 14.5 % (11.7-14.2); RDW Standard Deviation 49.4 fL (35.1-46.3); Red Blood Cell Count 3.16 M/mm3 (3.80-5.20); White Blood Cell Count 11.59 K/mm3 (4.00-11.30)
[2019-02-15 03:58] LABS: Anion Gap 7 mmol/L (6-16); Blood Urea Nitrogen 14 mg/dL (8-24); Bun/Creatinine Ratio 20.9 (12.0-20.0); CO2, Blood 27 mmol/L (21-32); Calcium, Blood 8.9 mg/dL (8.5-10.1); Chloride, Blood 100 mmol/L (98-108); Creatinine, Blood 0.67 mg/dL (0.40-1.00); Glomerular Filtration Rate >60 (60-); Glucose, Blood 122 mg/dL (70-99); Potassium, Blood 4.1 mmol/L (3.5-5.5); Sodium, Blood 134 mmol/L (136-145)
--- NOTE | 2019-02-15 05:37 | NUR ---
SUMMARY PT DID WELL OVERNIGHT. SLEPT A GOOD PORTION OF THE NIGHT AND WAS ABLE TO REMAIN FLAT WITHOUT FLEXION AFTER COMING BACK FROM THE DIRECTOR OF SALES MARKETING. PT HAD THROMBECTOMY AND BALLOONING OF R LEG. L GROIN ACCESS SITE HAS BEEN STABLE SINCE ARRIVING TO ICU FROM DIRECTOR OF SALES MARKETING. PT HAS HAD PAIN IN R FOOT ON AND OFF. DESCRIBES IT SHARP THROBBING PAIN THAT COMES AND GOES. PAIN SEEMS WORSE THIS AM. R FOOT AND POSTERIOR TIB PULSES ARE ONLY FOUND WITH DOPPLER. FOOT IS WARM AND HAS GOOD CAP REFILL. GANGRENOUS TOES ON THE RIGHT FOOT THAT ARE CHRONIC. L FOOT HAS PALPABLE PEDAL PULSE. ON HEPARIN GTT PER DR. MUSA.
--- NOTE | 2019-02-15 08:30 | NUR ---
INITIAL ASSESMENT PT ALERT AND ORIENT TIMES FOUR AND VERY ANXIOUS AND YELLING OUT IN PAIN AND CRYING, C/O BURNING NERVE PAIN RADIATING DOWN HER RIGHT LATERAL LEG. PRNS GIVEN PER MD ORDER, SUPPORT AND REPOSITIONED. PT CALMING DOWN. VSS, TACHY, AFEBRILE AND NO EDEMA. RA WITH SATS IN THE HIGH 90S AND NO S/S OF SOB. TOLERATING DIET WITH NO BM, BOWEL MEDS GIVEN. ABD SOFT ROUND AND OBESE WITH BTS T/O. UO ADEQUATE VIA MARIE CLEAR YELLOW URINE. RIGHT FOOT BANDAGE IN PLACE AND SOURCE OF PT PAIN. WILL CONT TO MONITOR
--- NOTE | 2019-02-15 16:27 | NUR ---
MARIE CATH LEAKING ADDED 10 MORE ML TO BALLOON, CONTINUED TO LEAK. PT ABLE TO AMBULATE, DC'D CATHETER PER PROTOCOL.
--- NOTE | 2019-02-15 17:11 | NUR ---
SUMMARY PT ARRIVED TO UNIT FROM ICU THIS AFTERNOON. AMBULATED W/MINIMAL ASSIST TO BED FROM DOOR. DRESSING TO L GROIN DRY AND INTACT. DRESSING TO R FOOT DRY AND INTACT. PT'S MARIE CATH CONTINUED TO LEAK, DC'D PER PROTOCOL. PT ABLE TO VOID IMMEDIATELY, THEN HAD ONE INCONTINENT VOID. MEDICATED PER ORDERS FOR PAIN. PT PLEASANT AND COOPERATIVE. CALL LIGHT IN REACH. HEPARIN INFUSING TO RFA PER ORDERS.
--- NOTE | 2019-02-15 20:40 | NUR ---
HEP GTT INCREASED AT THIS TIME PER PHARMACY ORDERS.
[2019-02-16 03:48] LABS: BASOPHILS ABSOLUTE AUTO 0.07 K/mm3 (0.00-0.23); BASOPHILS PERCENT AUTO 1 % (0-2); EOSINOPHILS ABSOLUTE AUTO 0.51 K/mm3 (0.00-0.68); EOSINOPHILS PERCENT AUTO 5 % (0-6); Hematocrit 25.5 % (33.0-51.0); Hemoglobin 8.3 g/dL (11.5-16.0); IMMATURE GRAN ABSOLUTE AUTO 0.18 K/mm3 (0.00-0.10); IMMATURE GRAN PERCENT AUTO 2 % (0-1); LYMPHOCYTES ABSOLUTE AUTO 4.05 K/mm3 (0.84-5.20); LYMPHOCYTES PERCENT AUTO 38 % (21-46); MONOCYTES ABSOLUTE AUTO 0.93 K/mm3 (0.16-1.47); MONOCYTES PERCENT AUTO 9 % (4-13); Mean Corpuscular HGB 30.2 pg (26.0-34.0); Mean Corpuscular HGB Conc 32.5 g/dL (31.5-36.5); Mean Corpuscular Volume 93 fL (80-100); Mean Platelet Volume 9.8 fL (9.1-12.4); NEUTROPHILS ABSOLUTE AUTO 5.07 K/mm3 (1.96-9.15); NEUTROPHILS PERCENT AUTO 47 % (41-73); Platelet Count 263 K/mm3 (150-400); RDW Coefficient Variation 14.4 % (11.7-14.2); RDW Standard Deviation 48.4 fL (35.1-46.3); Red Blood Cell Count 2.75 M/mm3 (3.80-5.20); White Blood Cell Count 10.81 K/mm3 (4.00-11.30)
[2019-02-16 04:09] LABS: Alanine Aminotransfer (ALT/SGP 22 U/L (12-78); Albumin, Blood 2.8 g/dL (3.4-5.0); Albumin/Globulin Ratio 0.7 (0.8-1.8); Alk Phos 53 U/L (50-136); Anion Gap 6 mmol/L (6-16); Aspartate Aminotrans (AST/SGOT 14 U/L (12-37); Bilirubin, Total 0.3 mg/dL (0.1-1.0); Blood Urea Nitrogen 18 mg/dL (8-24); Bun/Creatinine Ratio 25.7 (12.0-20.0); CO2, Blood 27 mmol/L (21-32); Calcium, Blood 8.8 mg/dL (8.5-10.1); Chloride, Blood 101 mmol/L (98-108); Globulin, Blood 3.8 g/dL (2.2-4.0); Glomerular Filtration Rate >60 (60-); Glucose, Blood 113 mg/dL (70-99); Potassium, Blood 4.2 mmol/L (3.5-5.5); Sodium, Blood 134 mmol/L (136-145); Total Protein, Blood 6.6 g/dL (6.4-8.2)
--- NOTE | 2019-02-16 05:12 | NUR ---
SHIFT SUMMARY: PT PAINFUL THROUGHOUT SHIFT. A&O X4. HR ELEVATED, OTHERWISE VSS. GIVEN IV AND ORAL PAIN MEDICATION PER EMAR. RATING PAIN 9/10. GANGRENOUS WOUNDS TO RIGHT TOES COVERED IN DRESSING. PT REPORTS N/T TO RIGHT FOOT. HEPP GTT INCREASED ONCE. ABX INFUSING PER EMAR. PT OUT OF BED TO BATHROOM WITH SBA. VOIDING WELL. PT HAS BEEN NPO SINCE MIDNIGHT FOR PLANNED SURGERY THIS MORNING AT 10AM. WILL DISCONNECT PT FROM HEPARIN GTT THIS MORNING AT 0700 PER ORDERS.
--- NOTE | 2019-02-16 05:40 | NUR ---
HEP INFUSION INCREASED AT THIS TIME PER ORDERS.
--- NOTE | 2019-02-16 10:11 | NUR ---
PT LEFT ROOM TO GO TO DAYSURG/OR
--- NOTE | 2019-02-16 11:25 | NUR ---
02/16/19 1125 Le[place] Vital 20 ML LIDOCAINE 1% INJECTED AT SURGICAL SITE BY DR LADD.
--- NOTE | 2019-02-16 14:52 | NUR ---
post op shoe placed onto patient
--- NOTE | 2019-02-16 19:43 | NUR ---
SHIFT SUMMARY PT A&OX4, VSS, S/P RLE DIGITS 3/4/5 REMOVED TODAY, SURGICAL BANDAGE WITH CELESTE WRAP APPEARS CDI, POST OP SHOE ON PT IS WBAT. PAIN MANAGED WITH 5 MG ORAL DILAUDID. MIGUEL PO, DENIES N&V. VOIDING WELL. AMB W/FWW TO BRP. REPORT GIVEN TO SWAPNA WILSON.
[2019-02-17 04:02] LABS: BASOPHILS ABSOLUTE AUTO 0.04 K/mm3 (0.00-0.23); BASOPHILS PERCENT AUTO 0 % (0-2); EOSINOPHILS ABSOLUTE AUTO 0.03 K/mm3 (0.00-0.68); EOSINOPHILS PERCENT AUTO 0 % (0-6); Hematocrit 24.4 % (33.0-51.0); Hemoglobin 7.9 g/dL (11.5-16.0); IMMATURE GRAN ABSOLUTE AUTO 0.13 K/mm3 (0.00-0.10); IMMATURE GRAN PERCENT AUTO 1 % (0-1); LYMPHOCYTES ABSOLUTE AUTO 2.84 K/mm3 (0.84-5.20); LYMPHOCYTES PERCENT AUTO 25 % (21-46); MONOCYTES ABSOLUTE AUTO 0.96 K/mm3 (0.16-1.47); MONOCYTES PERCENT AUTO 8 % (4-13); Mean Corpuscular HGB 30.2 pg (26.0-34.0); Mean Corpuscular HGB Conc 32.4 g/dL (31.5-36.5); Mean Corpuscular Volume 93 fL (80-100); Mean Platelet Volume 10.2 fL (9.1-12.4); NEUTROPHILS ABSOLUTE AUTO 7.61 K/mm3 (1.96-9.15); NEUTROPHILS PERCENT AUTO 66 % (41-73); Platelet Count 294 K/mm3 (150-400); RDW Coefficient Variation 14.3 % (11.7-14.2); Red Blood Cell Count 2.62 M/mm3 (3.80-5.20); White Blood Cell Count 11.61 K/mm3 (4.00-11.30)
[2019-02-17 04:25] LABS: Alanine Aminotransfer (ALT/SGP 29 U/L (12-78); Albumin/Globulin Ratio 0.8 (0.8-1.8); Alk Phos 51 U/L (50-136); Anion Gap 7 mmol/L (6-16); Aspartate Aminotrans (AST/SGOT 18 U/L (12-37); Bilirubin, Total 0.2 mg/dL (0.1-1.0); Blood Urea Nitrogen 14 mg/dL (8-24); Bun/Creatinine Ratio 21.3 (12.0-20.0); CO2, Blood 27 mmol/L (21-32); Calcium, Blood 9.3 mg/dL (8.5-10.1); Chloride, Blood 103 mmol/L (98-108); Creatinine, Blood 0.66 mg/dL (0.40-1.00); Glomerular Filtration Rate >60 (60-); Glucose, Blood 121 mg/dL (70-99); Potassium, Blood 3.8 mmol/L (3.5-5.5); Sodium, Blood 137 mmol/L (136-145)
--- NOTE | 2019-02-17 04:27 | NUR ---
SHIFT SUMMARY PATIENT HAS HAD ISSUES WITH PAIN CONTROL THROUGHOUT SHIFT. EACH RX INTERVENTION (DILAUDID PO, FENTANYL, AND IV ATIVAN HAVE ALL HAD VERY MINIMAL EFFECT. HER PAIN IS IN TWO PLACES, RADIATING FROM HER BACK TO HER RT LEG AND IN HER RT FOOT. SHE FEELS SHOOTING NERVE PAIN FROM BACK TO HER LATERAL ASPECT OF HER RT FOOT. HER DRESSING ON HER RT FOOT IS CLEAN AND DRY. SHE HAS ALSO USED A HEATING PAD FOR HER BACK AND THIS GIVES HER SOME RELIEF TO HER BACK THAT DOES NOT LAST. SHE MOVES WELL IN BED AND AMBULATES TO THE WITH HER ORTHO SHOE ON.
--- NOTE | 2019-02-17 15:32 | NUR ---
SHIFT SUMMARY PT A&OX4, VSS, POD1 AMPUTATION RIGHT DIGITS 3,4,5., DRESSING CDI, WBAT WITH POST OP SHOE IN PLACE. ORAL BACTRIM STARTED TODAY. ORAL PAIN MANAGED W/2 MG DILAUDID Q4. ANXIETY MANAGED WITH ORAL ATIVAN 1 MG TABLET Q4. AMBULATES TO BRP, VOIDING WELL, MIGUEL PO, DENIES N&V. WILL REPORT TO ONCOMING NOC RN.
[2019-02-17 22:48] LABS: Hematocrit 27.6 % (33.0-51.0); Hemoglobin 8.9 g/dL (11.5-16.0); Mean Corpuscular HGB 30.5 pg (26.0-34.0); Mean Corpuscular HGB Conc 32.2 g/dL (31.5-36.5); Mean Corpuscular Volume 95 fL (80-100); Mean Platelet Volume 9.9 fL (9.1-12.4); NRBC ABSOLUTE 0.02 K/mm3 (0.00-0.02); NRBC Auto 0.2 /100 WBC (0.0-0.2); Platelet Count 305 K/mm3 (150-400); RDW Coefficient Variation 14.7 % (11.7-14.2); RDW Standard Deviation 50.5 fL (35.1-46.3); Red Blood Cell Count 2.92 M/mm3 (3.80-5.20); White Blood Cell Count 11.57 K/mm3 (4.00-11.30)
[2019-02-18 04:07] LABS: BASOPHILS ABSOLUTE AUTO 0.07 K/mm3 (0.00-0.23); BASOPHILS PERCENT AUTO 1 % (0-2); EOSINOPHILS ABSOLUTE AUTO 0.27 K/mm3 (0.00-0.68); EOSINOPHILS PERCENT AUTO 3 % (0-6); Hematocrit 27.7 % (33.0-51.0); IMMATURE GRAN ABSOLUTE AUTO 0.17 K/mm3 (0.00-0.10); IMMATURE GRAN PERCENT AUTO 2 % (0-1); LYMPHOCYTES ABSOLUTE AUTO 3.71 K/mm3 (0.84-5.20); LYMPHOCYTES PERCENT AUTO 35 % (21-46); MONOCYTES ABSOLUTE AUTO 0.82 K/mm3 (0.16-1.47); MONOCYTES PERCENT AUTO 8 % (4-13); Mean Corpuscular HGB Conc 32.5 g/dL (31.5-36.5); Mean Platelet Volume 9.9 fL (9.1-12.4); NEUTROPHILS ABSOLUTE AUTO 5.56 K/mm3 (1.96-9.15); NEUTROPHILS PERCENT AUTO 53 % (41-73); Platelet Count 320 K/mm3 (150-400); RDW Coefficient Variation 14.6 % (11.7-14.2); RDW Standard Deviation 49.1 fL (35.1-46.3)
[2019-02-18 04:10] LABS: Mean Corpuscular Volume 92 fL (80-100)
[2019-02-18 04:23] LABS: Anion Gap 8 mmol/L (6-16); Blood Urea Nitrogen 16 mg/dL (8-24); Bun/Creatinine Ratio 24.2 (12.0-20.0); CO2, Blood 24 mmol/L (21-32); Chloride, Blood 105 mmol/L (98-108); Creatinine, Blood 0.66 mg/dL (0.40-1.00); Glomerular Filtration Rate >60 (60-); Glucose, Blood 137 mg/dL (70-99); Potassium, Blood 4.2 mmol/L (3.5-5.5); Sodium, Blood 137 mmol/L (136-145)
--- NOTE | 2019-02-18 04:53 | NUR ---
SHIFT SUMMARY: DAMON CONTINUES TO COMPLAIN OF 8-9/10 PAIN. SHE REFUSES TO ELEVATE HER FOOT STATING THAT IT CAUSES HER TO HAVE BACK PAIN. SHE REFUSES ICE, DESPITE THE ORDER FOR IT, STATING THAT SHE HAS BEEN TOLD SHE CANNOT USE ICE IN THE PAST DUE TO HER PROPENSITY FOR BLOOD CLOTS. HER FOOT WAS REWRAPPED AT HER REQUEST IN AN EFFORT TO IMPROVER HER PAIN. SHE CHEWED THE DILAUDID TABLET STATING THAT SHE WANTED THE MEDICATION TO WORK FASTER. SHE IS TOLERATING PO INTAKE WELL, DENIES N/V. SHE HAS BRISK CAPILLARY REFILL IN HER TOES. NO IV ACCESS AT THIS TIME. SHE RESTED INTERMITTENTLY THROUGHOUT THE NIGHT. VSS. NO ACUTE CHANGES. SHE IS ABLE TO MAKE HER NEEDS KNOWN. SHE IS LYING IN BED WTIH THE CONTINUOUS PULSE OX IN PLACE.
--- NOTE | 2019-02-18 17:16 | NUR ---
DR. LADD IN TO SEE PT, WOUND DRESSING CHANGED. DR. LADD REPORTS PT OK TO DC, DR. NEWELLTRATE NOTIFIED
[2019-02-18] MEDS ORDERED: ELIQUIS5 MG PO (18:00)
[2019-02-18] MEDS ORDERED: ACET325 PO (18:00)
[2019-02-18] MEDS ORDERED: GABA300 PO (18:01)
[2019-02-18] MEDS ORDERED: HYDMOR2 PO (18:02)
[2019-02-18] MEDS ORDERED: LIDO700A20 TOP (18:05)
[2019-02-18] MEDS ORDERED: Ativan1 MG PO (18:08)
[2019-02-18] MEDS ORDERED: MELA3 PO (18:09)
[2019-02-18] MEDS ORDERED: [UNRECOGNIZED DRUG - OTHER] (18:13)
[2019-02-18] MEDS ORDERED: METO25 PO (18:16)
[2019-02-18] MEDS ORDERED: Procardia10 MG PO (18:18)
[2019-02-18] MEDS ORDERED: ONDA4ODT MM (18:19)
[2019-02-18] MEDS ORDERED: PANT20 PO (18:20)
[2019-02-18] MEDS ORDERED: Florastor250 MG PO (18:20)
[2019-02-18] MEDS ORDERED: SENN187 PO (18:21)
[2019-02-18] MEDS ORDERED: Bactrim 400-801 EACH PO (18:23)
--- NOTE | 2019-02-18 19:11 | NUR ---
DISCHARGE: PACKET PRINTED AND PT EDUCATED. MEDS FAXED TO [facility] BY SHABANA BLUM RN. HARD SCRIPTS SENT WITH PT. PT REPORTS UNDERSTANDING OF DC INSTUCTIONS AND REFERALS. PT LEFT UNIT AT ABOUT 1845 VIA WHEELCHAIR WITH ELENA VAUGHN.
[2019-03-25] MEDS ORDERED: Percocet 5-3251 EACH PO (14:11)
[2019-03-25] MEDS ORDERED: Procardia10 MG PO (14:11)
== END 2019-02-18 18:46 | disposition home or self-care (01) | DRG 271 ==
LOC: ER 15:02 → MEDS 18:10 → ICUE 18:10 → MEDS 20:01 → ICUE 02-13 09:05 → SURS 02-15 15:20
PROVIDERS: Family Medicine; Nurse Practitioner Acute Care; Physician Assistant; ADMIT Internal Medicine
PROC: 04CP3ZZ Extirpation of Matter from Right Anterior Tibial Artery, Percutaneous Approach (ICD-10-PCS; principal; 2019-02-14)
PROC: 04CR3ZZ Extirpation of Matter from Right Posterior Tibial Artery, Percutaneous Approach (ICD-10-PCS; 2019-02-14)
PROC: 04CM3ZZ Extirpation of Matter from Right Popliteal Artery, Percutaneous Approach (ICD-10-PCS; 2019-02-14)
PROC: 047P3ZZ Dilation of Right Anterior Tibial Artery, Percutaneous Approach (ICD-10-PCS; 2019-02-14)
PROC: 047K3ZZ Dilation of Right Femoral Artery, Percutaneous Approach (ICD-10-PCS; 2019-02-14)
PROC: B41F1ZZ Fluoroscopy of Right Lower Extremity Arteries using Low Osmolar Contrast (ICD-10-PCS; 2019-02-14)
PROC: 0Y6T0Z0 Detachment at Right 3rd Toe, Complete, Open Approach (ICD-10-PCS; 2019-02-16)
PROC: 0Y6V0Z0 Detachment at Right 4th Toe, Complete, Open Approach (ICD-10-PCS; 2019-02-16)
PROC: 0Y6X0Z0 Detachment at Right 5th Toe, Complete, Open Approach (ICD-10-PCS; 2019-02-16)
DX: T82.868A Thrombosis due to vascular prosthetic devices, implants and grafts, initial encounter (principal); D68.51 Activated protein C resistance; M35.5 Multifocal fibrosclerosis; I70.261 Atherosclerosis of native arteries of extremities with gangrene, right leg; F17.210 Nicotine dependence, cigarettes, uncomplicated; Z59.0 Homelessness; D69.6 Thrombocytopenia, unspecified; M54.30 Sciatica, unspecified side
CPT/HCPCS: 36415; 36416; 36430; 37184; 37185; 37211; 37214; 37224; 37228; 51702; 73600; 73620; 75716; 75774; 76937; 80048; 80053; 80202; 81001; 82607; 82728; 82746; 83540; 83550; 83605; 85025; 85027; 85384; 85610; 85730; 86850; 86900; 86901; 86923; 87040; 87071; 87075; 87076; 87081; 87102; 87205; 88305; 88311; 93005; 93010; 93926; 94762; 96365; 96375; 96376; 97110; 97116; 97161; 97166; 97530; 97535; 99152; 99153; 99285-25; A9270; A9270-GY; C1725; C1751; C1760; C1769; C1887; C1894; C2623; C9113; G0463; J1100; J1170; J1644; J1650; J2060; J2250; J2405; J2704; J2997; J3010; J3370; J7030; J7040; J7050; P9016; Q9967

== ENCOUNTER 2019-02-19 20:02 | Emergency (ER) | payer MEDICARE ==
[~2019-02-19] VITALS: Ht 170.2 cm; Wt 94.3 kg
[~2019-02-19 20:02] MED LIST changes: +Ativan1 MG PO; +Bactrim 400-801 EACH PO; +ELIQUIS5 MG PO; +Florastor250 MG PO; +GABA300 PO; +HYDMOR2 PO; +LIDO700A20 TOP; +MELA3 PO; +METO25 PO; +ONDA4ODT MM; +PANT20 PO; +Procardia10 MG PO; +[UNRECOGNIZED DRUG - OTHER]
[2019-03-25] MEDS ORDERED: Procardia10 MG PO (14:11)
[2019-03-25] MEDS ORDERED: Percocet 5-3251 EACH PO (14:11)
== END 2019-02-19 21:47 | disposition home or self-care (01) ==
LOC: ER 20:02
DX: G89.18 Other acute postprocedural pain (principal); M79.671 Pain in right foot; Z88.0 Allergy status to penicillin; Z88.8 Allergy status to other drugs, medicaments and biological substances; Z79.899 Other long term (current) drug therapy; F17.210 Nicotine dependence, cigarettes, uncomplicated
CPT/HCPCS: 36415; 96374; 99283-25; J1170

== ENCOUNTER 2019-03-21 13:47 | Inpatient (IN) | payer MEDICARE ==
[~2019-03-21] VITALS: Ht 170.2 cm; Wt 90.9 kg
[2019-03-21 15:17] LABS: BASOPHILS ABSOLUTE AUTO 0.05 K/mm3 (0.00-0.23); BASOPHILS PERCENT AUTO 1 % (0-2); EOSINOPHILS ABSOLUTE AUTO 0.14 K/mm3 (0.00-0.68); EOSINOPHILS PERCENT AUTO 1 % (0-6); Hematocrit 39.8 % (33.0-51.0); Hemoglobin 13.1 g/dL (11.5-16.0); IMMATURE GRAN ABSOLUTE AUTO 0.03 K/mm3 (0.00-0.10); IMMATURE GRAN PERCENT AUTO 0 % (0-1); LYMPHOCYTES ABSOLUTE AUTO 2.64 K/mm3 (0.84-5.20); LYMPHOCYTES PERCENT AUTO 26 % (21-46); MONOCYTES ABSOLUTE AUTO 0.53 K/mm3 (0.16-1.47); MONOCYTES PERCENT AUTO 5 % (4-13); Mean Corpuscular HGB 30.2 pg (26.0-34.0); Mean Corpuscular HGB Conc 32.9 g/dL (31.5-36.5); Mean Corpuscular Volume 92 fL (80-100); NEUTROPHILS ABSOLUTE AUTO 6.72 K/mm3 (1.96-9.15); NEUTROPHILS PERCENT AUTO 67 % (41-73); Platelet Count 467 K/mm3 (150-400); RDW Coefficient Variation 13.5 % (11.7-14.2); RDW Standard Deviation 46.2 fL (35.1-46.3); Red Blood Cell Count 4.34 M/mm3 (3.80-5.20); White Blood Cell Count 10.11 K/mm3 (4.00-11.30)
[2019-03-21 15:33] LABS: Alanine Aminotransfer (ALT/SGP 17 U/L (12-78); Albumin, Blood 3.3 g/dL (3.4-5.0); Albumin/Globulin Ratio 0.7 (0.8-1.8); Alk Phos 79 U/L (50-136); Anion Gap 10 mmol/L (6-16); Aspartate Aminotrans (AST/SGOT 18 U/L (12-37); Bilirubin, Total 0.3 mg/dL (0.1-1.0); Blood Urea Nitrogen 9 mg/dL (8-24); Bun/Creatinine Ratio 16.2 (12.0-20.0); CO2, Blood 22 mmol/L (21-32); Calcium, Blood 9.3 mg/dL (8.5-10.1); Chloride, Blood 106 mmol/L (98-108); Creatinine, Blood 0.56 mg/dL (0.40-1.00); Globulin, Blood 4.5 g/dL (2.2-4.0); Glomerular Filtration Rate >60 (60-); Glucose, Blood 126 mg/dL (70-99); Potassium, Blood 4.8 mmol/L (3.5-5.5); Sodium, Blood 138 mmol/L (136-145); Total Protein, Blood 7.8 g/dL (6.4-8.2)
--- NOTE | 2019-03-21 17:58 | NUR ---
REPORT RECEIVED SPOKE TO ED NURSE PROVIDING REPORT FOR PATIENT. AWAITING ARRIVAL TO FLOOR FOR PATIENT AFTER ED GETS NEW IV FOR THE PATIENT.
[2019-03-21] MEDS ORDERED: NIFE10 PO (18:14)
[2019-03-21] MEDS ORDERED: PLAVIX75 MG PO (18:15)
[2019-03-21] MEDS ORDERED: ELIQUIS5 M3 PO (18:15)
[2019-03-22 00:22] LABS: BASOPHILS ABSOLUTE AUTO 0.05 K/mm3 (0.00-0.23); BASOPHILS PERCENT AUTO 1 % (0-2); EOSINOPHILS ABSOLUTE AUTO 0.21 K/mm3 (0.00-0.68); EOSINOPHILS PERCENT AUTO 2 % (0-6); Hematocrit 36.6 % (33.0-51.0); Hemoglobin 11.7 g/dL (11.5-16.0); IMMATURE GRAN ABSOLUTE AUTO 0.03 K/mm3 (0.00-0.10); IMMATURE GRAN PERCENT AUTO 0 % (0-1); LYMPHOCYTES ABSOLUTE AUTO 4.17 K/mm3 (0.84-5.20); LYMPHOCYTES PERCENT AUTO 44 % (21-46); MONOCYTES ABSOLUTE AUTO 0.58 K/mm3 (0.16-1.47); MONOCYTES PERCENT AUTO 6 % (4-13); Mean Corpuscular HGB 30.4 pg (26.0-34.0); Mean Platelet Volume 9.7 fL (9.1-12.4); NEUTROPHILS ABSOLUTE AUTO 4.47 K/mm3 (1.96-9.15); NEUTROPHILS PERCENT AUTO 47 % (41-73); Platelet Count 357 K/mm3 (150-400); RDW Coefficient Variation 13.6 % (11.7-14.2); RDW Standard Deviation 47.9 fL (35.1-46.3); Red Blood Cell Count 3.85 M/mm3 (3.80-5.20); White Blood Cell Count 9.51 K/mm3 (4.00-11.30)
[2019-03-22 00:23] LABS: Mean Corpuscular Volume 95 fL (80-100)
[2019-03-22 00:41] LABS: Alanine Aminotransfer (ALT/SGP 13 U/L (12-78); Albumin, Blood 2.8 g/dL (3.4-5.0); Albumin/Globulin Ratio 0.7 (0.8-1.8); Alk Phos 68 U/L (50-136); Anion Gap 9 mmol/L (6-16); Aspartate Aminotrans (AST/SGOT 10 U/L (12-37); Bilirubin, Total 0.2 mg/dL (0.1-1.0); Blood Urea Nitrogen 9 mg/dL (8-24); Bun/Creatinine Ratio 15.4 (12.0-20.0); CO2, Blood 24 mmol/L (21-32); Calcium, Blood 8.6 mg/dL (8.5-10.1); Chloride, Blood 106 mmol/L (98-108); Creatinine, Blood 0.58 mg/dL (0.40-1.00); Globulin, Blood 3.8 g/dL (2.2-4.0); Glomerular Filtration Rate >60 (60-); Glucose, Blood 130 mg/dL (70-99); Potassium, Blood 3.5 mmol/L (3.5-5.5); Sodium, Blood 139 mmol/L (136-145); Total Protein, Blood 6.6 g/dL (6.4-8.2)
--- NOTE | 2019-03-22 04:38 | NUR ---
SHIFT SUMMARY PATIENT HAS BEEN SLEEPING THROUGH THE NIGHT. PAIN IS CONTROLLED WITH AVAILABLE PRN PAIN MEDS. STARTED SITTING PATIENT UP AROUND MIDNIGHT, ANGIOSEAL REMAINED INTACT, ESCALATED PATIENT TO NOW GETTING UP OUT OF BED TO GO TO BATHROOM. VOIDING PER BEDSIDE COMMODE. PULSES NOW DOPPLEABLE IN ALL POINTS IN LOWER EXTREMETIES, WERE NOT PRESENT AT BEGIN OF SHIFT IN THE DORSAL PEDALS. VSS. WILL CONTINUE TO MONITOR.
--- NOTE | 2019-03-22 08:38 | NUR ---
CARE ASSUMED REPORT RECEIVED, CARE ASSUMED AT 0700 AFTER BEDSIDE REPORT FROM STEVE ALLISON. PT ASLEEP ON ROUNDS, ALLOWING FOR REST PT HAS HAD PAINFUL, UNRESTFUL NIGHT PER ESCROW SECRETARY REPORT. VITALS STABLE. HEPARIN GTT INFUSING PER ORDERS. CELESTE WRAP OF RIGHT FOOT C/D/I, LEFT GROIN SITE STABLE. SINCE ASSUMING CARE, PT REQUESTS TO USE BATHROOM. UP TO COMMODE WITH STANDBY ASSIST. PT EXTREMELY PAINFUL AND ANXIOUS. MEDICATED, SEE EMAR. SEE SHIFT ASSESSMENT. PT PROVIDED WITH WARM BLANKETS, DIM LIGHTS PER REQUEST. PT AGREES TO CALL FOR NEEDS.
--- NOTE | 2019-03-22 10:06 | NUR ---
PROVIDER VISIT DR. DOLL TO BEDSIDE FOR ASSESSMENT. NO NEW CHANGES IN ORDERS, OTHER THAN DR. DOLL REQUESTING NURSING STAFF TO CONTACT DR. MUSA AND VERIFY DURATION OF HEPARIN GTT SHE WILL BE RESUMED ON ELIQUIS ONCE THAT IS STOPPED. PT DOES HAVE A PODIATRY CONSULT SCHEDULED FOR TODAY. WILL WAIT UNTIL PODIATRY SEES PATIENT AND CONFIRMS HER HEALING IS ADEQUATE AND PT WON'T NEED FURTHER INTERVENTIONS.
--- NOTE | 2019-03-22 11:51 | NUR ---
PROVIDER VISIT DR. LADD TO BEDSIDE TO ASSESS RIGHT FOOT. PER STEVE WOODS WHO WAS AT BEDSIDE WITH DR. LADD, PLAN TO SEE PATIENT AN OUTPATIENT NEXT WEEK. PER DR. LADD, PAIN SHOULD IMPROVE WITH INCREASED BLOOD FLOW AND ANTIBIOTICS. PT UPDATED AND ANXIOUS, PER RUKHSANA, IGNITER CAPPER. PT ALSO PAINFUL. MEDICATED FOR BOTH.
--- NOTE | 2019-03-22 12:20 | NUR ---
PROVIDER COMMUNICATION - DR. BISHOP CANNON, RN IN DISCHARGE PLANNING EXPRESSING CONCERN ABOUT PT BEING SENT HOME SHE IS CURRENTLY LIVING ON A FAMILY MEMBERS COUCH. REQUESTED RECOMMENDATION FROM PODIATRY FOR LONG TERM FACILITY. SPOKE WITH DR. LADD WHO STATES HE RECOMMENDS LONG TERM FOR DRESSING CHANGES AND HELP WITH ADL'S. ALSO PLACED ORDER FOR ANTIBIOTICS.
--- NOTE | 2019-03-22 12:32 | NUR ---
PROVIDER COMMUNICATION - DR. MUSA SPOKE WITH DR. MUSA REGARDING PT'S POST PROCEDURE PLAN OF CARE. DR. MUSA REQUEST ORDER BE PLACED FOR PATIENT TO GO BACK ON ELIQUIS 5 MG TWICE DAILY, CONTINUE WITH PLAVIX ORDERED, AND DISCONTINUE HEPARIN ONCE ELIQUIS IS STARTED. DR. MUSA ALSO REQUESTING PT KEEP FOLLOW UP APPOINTMENT FOR OUTPATIENT PERIPHERAL SCHEDULED FOR MONDAY.
--- NOTE | 2019-03-22 12:52 | NUR ---
PROVIDER COMMUNICATION - HOSPITALIST SPOKE WITH DR. DOLL, UPDATED HER ON RECOMMENDATIONS FROM DR. LADD AND DR. MUSA. DR. DOLL STATES SHE WILL ENTER ELIQUIS ORDER. ALSO RECEIVED ORDER TO TRANSFER PATIENT TO MEDICAL FLOOR WITH NO TELEMETRY.
--- NOTE | 2019-03-22 14:09 | NUR ---
FOLLOW UP APPOINTMENTS CONFIRMED PT'S APPOINTMENT WITH DR. MUSA'S OFFICE. MADE APT FOR PATIENT WITH DR. LADD OUTPATIENT HE HAD REQUESTED. APPOINTMENTS PLACED IN REFERRAL SECTION OF PATIENT DISCHARGE.
--- NOTE | 2019-03-22 14:10 | NUR ---
REASSESSMENT/SUMMARY VITALS STABLE THROUGHOUT SHIFT. PT HAS BEEN MEDICATED FOR PAIN. STANDBY ASSIST TO USE BATHROOM. PT HAS PUT BOOT ON RIGHT FOOT ON/OFF FOR ADL'S INDEPEDENTLY. ASSESSMENTS UNCHANGED. SEE PREVIOUS NOTES FOR PLAN OF CARE FROM DR. LADD, DR. MUSA AND DR. DOLL.
--- NOTE | 2019-03-22 14:30 | NUR ---
TRANSFER NOTIFIED BY SHABANA MILIAN RN THAT PT IS TO BE TRANFERRED TO MEDICAL FLOOR ROOM 341. PT UPDATED AND AGREEABLE.
--- NOTE | 2019-03-22 15:03 | NUR ---
REPORT TO OSWALD WILLINGHAM RN ON MEDICAL FLOOR TO ASSUME CARE ON TRANSFER
--- NOTE | 2019-03-22 15:24 | NUR ---
TRANSFER PT TRANSFERRED VIA WHEELCHAIR BY ASHLEY ERVIN TO MEDICAL FLOOR ROOM 341
--- NOTE | 2019-03-22 17:56 | NUR ---
SHIFT SUMMARY PATIENT IS PLEAQSANT, ALERT AND ORIENTED. NO ACUTE CONCERNS PER PATIENT. BIGGEST GOAL IS JACKSON MANAGEMENT FOR THE PATIENT. MOST PAIN IS IN HER R LEG FROM THE KNEE DOWN POST REVASCULARIZATION. PATIENT IS INDEPENDENT IN THE ROOM. STEADY. CALLS APPROPRIATELY.
[2019-03-23 05:44] LABS: BASOPHILS ABSOLUTE AUTO 0.05 K/mm3 (0.00-0.23); BASOPHILS PERCENT AUTO 1 % (0-2); EOSINOPHILS ABSOLUTE AUTO 0.39 K/mm3 (0.00-0.68); EOSINOPHILS PERCENT AUTO 6 % (0-6); Hematocrit 36.8 % (33.0-51.0); Hemoglobin 11.7 g/dL (11.5-16.0); IMMATURE GRAN ABSOLUTE AUTO 0.03 K/mm3 (0.00-0.10); IMMATURE GRAN PERCENT AUTO 0 % (0-1); LYMPHOCYTES ABSOLUTE AUTO 2.09 K/mm3 (0.84-5.20); LYMPHOCYTES PERCENT AUTO 30 % (21-46); MONOCYTES ABSOLUTE AUTO 0.58 K/mm3 (0.16-1.47); MONOCYTES PERCENT AUTO 8 % (4-13); Mean Corpuscular HGB 29.7 pg (26.0-34.0); Mean Corpuscular HGB Conc 31.8 g/dL (31.5-36.5); Mean Corpuscular Volume 93 fL (80-100); Mean Platelet Volume 10.1 fL (9.1-12.4); NEUTROPHILS ABSOLUTE AUTO 3.79 K/mm3 (1.96-9.15); NEUTROPHILS PERCENT AUTO 55 % (41-73); Platelet Count 388 K/mm3 (150-400); RDW Coefficient Variation 13.2 % (11.7-14.2); RDW Standard Deviation 45.7 fL (35.1-46.3); Red Blood Cell Count 3.94 M/mm3 (3.80-5.20); White Blood Cell Count 6.93 K/mm3 (4.00-11.30)
--- NOTE | 2019-03-23 05:50 | NUR ---
BURLAP SPREADER REPORT PT A/O X4. COMPLAINTS OF PAIN IN R FOOT. PT STATES PAIN A "SURGING" PAIN. SOMETIMES SHE WOULD RATE THE PAIN A 7/10 THEN SUDDELY SURGES TO 8 OR 9 AND COMES BACK DOWN TO A 7. MEDICATED FOR PAIN PER EMAR THROUGHOUT THE NIGHT. RIGHT FOOT IS SLIGHTLY WARM. FAINT PULSES CAN BE FELT ON R FT. ANTIBIOTICS APPLIED TO AMPUTATED TOES AND DRESSING WAS CHANGED. PT'S IV ON R HAND REMOVED DUE TO INFILTRATION. IV IN L AC SALINE LOCKED AND FLUSHES WELL. PT WOULD SIT UP, HOLD R FOOT AND MOAN. WARM BLANKET PROVIDED FOR PT. PT WRAPPED WARM BLANKET AROUND LEG AND STATED IT FELT BETTER. VSS, WILL CONTINUE TO MONITOR.
[2019-03-23 06:15] LABS: Alanine Aminotransfer (ALT/SGP 15 U/L (12-78); Albumin/Globulin Ratio 0.8 (0.8-1.8); Alk Phos 70 U/L (50-136); Anion Gap 6 mmol/L (6-16); Aspartate Aminotrans (AST/SGOT 4 U/L (12-37); Bilirubin, Total 0.2 mg/dL (0.1-1.0); Blood Urea Nitrogen 9 mg/dL (8-24); Bun/Creatinine Ratio 12.1 (12.0-20.0); CO2, Blood 28 mmol/L (21-32); Calcium, Blood 9.1 mg/dL (8.5-10.1); Chloride, Blood 104 mmol/L (98-108); Creatinine, Blood 0.74 mg/dL (0.40-1.00); Globulin, Blood 3.8 g/dL (2.2-4.0); Glomerular Filtration Rate >60 (60-); Glucose, Blood 94 mg/dL (70-99); Sodium, Blood 138 mmol/L (136-145); Total Protein, Blood 6.8 g/dL (6.4-8.2)
--- NOTE | 2019-03-23 17:07 | NUR ---
SHIFT SUMMARY PATIENT IS PLEASANT, ALERT AND ORIENTED, INDEPENDENT IN THE ROOM. NO ACUTE CONCERNS AT THIS TIME. PAIN MANAGEMENT IS HER CURRENT GOAL, SHE WOULD LIKE TO BE DOWN TO A 4/10. SHE CALLS APPROPRIATELY, SHE DOES NOTE THAT TODAY SHE FEELS LIKE SHE HAS PAIN IN HER AMPUTATED TOES.
--- NOTE | 2019-03-24 05:19 | NUR ---
PAPER GOODS MACHINE OPERATOR REPORT PT A/O X4. SLEPT WELL THROUGHOUT THE NIGHT. PT DID NOT CALL MUCH FOR PAIN MEDS COMPARED TO LAST TIME. PT LAST MEDICATED WITH PAIN MED FENTANYL IV 50 MG. I HELD OFF PERCOCET PO WHICH PT USUALLY GETS ALONG WITH FENTANYL BECAUSE PT APPEARED DROWSY AFTER FENTANYL WAS GIVEN AND PT WOULD FALL ASLEEP EASILY WHILE I WAS IN THE ROOM. R FOOT IS WARM TO TOUCH WITH FAINT PULSES. VITALS STABLE. WILL CONTINUE TO MONITOR. NO ACUTE CHANGES.
[2019-03-24] MEDS ORDERED: Percocet 5-3251 EACH PO (11:55)
[2019-03-24] MEDS ORDERED: Florastor250 MG PO (11:56)
[2019-03-24] MEDS ORDERED: BACTRIM DS TAB1 EACH PO (11:56)
--- NOTE | 2019-03-24 12:18 | NUR ---
SPOKE WITH B[place]LEY AT [facility]. PATIENT IS SHOWERING AND READY TO GO. SHE HAS BEEN MEDICATED FOR PAIN AT THIS TIME. HER IV IS REMOVED, SHE IS PLEASANT AND NO CURRENT CONCERNS. SHE IS AWARE THAT SHE NEEDS TO FOLLOW UP WITH DR. MUSA, DR LADD, AND HER PRIMARY DR. CANO WITHIN THE WEEK. SHE IS WORKING ON SCHEDULING THESE APPOINTMENTS. PATIENT HAS TRANSPORTATION SET UP FOR 1300.
[2019-03-25] MEDS ORDERED: Procardia10 MG PO (14:11)
[2019-03-25] MEDS ORDERED: Percocet 5-3251 EACH PO (14:11)
== END 2019-03-24 13:25 | DRG 253 ==
LOC: ER 13:47 → ICUW 18:12 → MEDS 03-22 15:25
PROVIDERS: Nurse Practitioner Acute Care; Physician Assistant; ADMIT Internal Medicine
PROC: 047M3ZZ Dilation of Right Popliteal Artery, Percutaneous Approach (ICD-10-PCS; principal; 2019-03-21)
PROC: 3E05317 Introduction of Other Thrombolytic into Peripheral Artery, Percutaneous Approach (ICD-10-PCS; 2019-03-21)
DX: I70.261 Atherosclerosis of native arteries of extremities with gangrene, right leg (principal); D68.51 Activated protein C resistance; Z86.718 Personal history of other venous thrombosis and embolism; Z79.01 Long term (current) use of anticoagulants; F41.8 Other specified anxiety disorders; I10 Essential (primary) hypertension; Z95.820 Peripheral vascular angioplasty status with implants and grafts; F17.210 Nicotine dependence, cigarettes, uncomplicated; Z89.421 Acquired absence of other right toe(s)
CPT/HCPCS: 36415; 37224; 37228; 37232; 75625; 75716; 75774; 80053; 83605; 83735; 85025; 85347; 85730; 93926; 96365; 96366; 96375; 96376; 97116; 97162; 99152; 99153; 99285-25; A9270-GY; C1725; C1760; C1769; C1887; C1894; C2623; C9113; J1170; J1644; J2250; J2405; J2765; J2997; J3010; J7030; Q9967

== ENCOUNTER 2019-03-26 06:19 | Day surgery (SDC) | payer MEDICARE ==
[~2019-03-26] VITALS: Ht 170.2 cm; Wt 92.8 kg
[~2019-03-26 06:19] MED LIST changes: +BACTRIM DS TAB1 EACH PO; +ELIQUIS5 M3 PO; +NIFE10 PO; +PLAVIX75 MG PO; +Percocet 5-3251 EACH PO
--- NOTE | 2019-03-26 11:36 | NUR ---
PT TRANSFERED TO ICU 14 VIA [facility]. FULL REPORT WAS GIVEN TO FAUSTO PORRAS RN AND STEVE RAIN.
--- NOTE | 2019-03-26 12:00 | NUR ---
PT ADMIT PT RETURNED FROM DEVELOPMENT ADMINISTRATOR FOLLOWING INTERVENTION, SEE MD REPORT. WEAK BILAT TO DOPPLER DPS. RIGHT FOOT TOE AMPUTATION SITE CDI AND SUTURED WITH NO DRAINAGE. VSS, NO EDEMA, RA WITH SATS WNL AND NO S/S OF SOB AND CLEAR T/O. WILL ADVANCE DIET TOLERATED AND ABD SOFT OBESE ROUND NON TENDER WITH BT T/O, NO BM. UO ADEQUATE VIA BEDPAN CLEAR YELLOW URINE. AWAITING MD ORDERS FOR MANAGEMENT IN ICU. WILL CONT TO MONITOR.
--- NOTE | 2019-03-26 15:00 | NUR ---
PT UPDATE INTERVENTION SITES REMAIN STABLE WITH NO S/S OF REBLEED. DOPPLER BILAT LE PULSES. AFEBRILE VSS, RA NO N/V AND TOLERATING DIET. UO ADEQUATE. NO ORDERS RECEIVED SINCE ADMIT, CN ADVISED AND WILL FOLLOW UP WITH MD. WILL CONT TO MONITOR.
[2019-03-26 16:57] LABS: Platelet Count 339 K/mm3 (150-400)
[2019-03-26 17:13] LABS: International Normalized Ratio 0.98; Prothrombin Time Results 10.5 Sec (9.7-11.5)
--- NOTE | 2019-03-26 19:30 | NUR ---
ASSUME CARES: REPORT RECIEVED FORM MILE OFF GOING RN. MONITOR INTACT SHOWING SINUS RHYTHM HEART RATE 70'S. LUNG SOUNDS CLEAR RESPIRATIONS REGULAR AND EASY ON ROOM AIR [id number] ABDOMEN SOFT WITH BOWEL SOUNDS FOUR QUADS. VOIDS BART URINE PER BEDSIDE COMMODE. GAIT STEADY WITH MINIMAL ASSIST WITH CORDS AND WIRES. R GROIN SITE CLEAR SORT . PEDAL PULSES PRESENT WITH DOPPLER R 3'RD FORTH AND FIFTH TOES AMPUTATED WITH STICHES INTACT REPOSITIOS SELF IN BED REQUEST SODA AND SANDWITCH TOLERATES WELL CONTINUE TO MONITOR AND REPORT CHANGE IN PATIENT CONDITION
--- NOTE | 2019-03-27 06:46 | NUR ---
SHIFT SUMMARY RESTS QUIETLY WHEN UNDISTURBED MONITOR INTACT SHOWING SINUS RHYTHM HEART RATE 60'S-70'S. LUNG SOUNDS CLEAR RESPIRATIONS REGUAR AND EASY. ABDOMEN SOFT WITH BOWEL SOUDS FOUR QUADS UP TO BEDSIDE COMMODE WITH STANDBY ASSIST R GROIN SITE CLEAR. WOUND TO R FOOT UNCHANGED FROM BEGINNING OF SHIFT CONTINUE TO MONITOR AND REPORT CHANGEIN PATIENT CONDITION
== END 2019-03-27 12:45 | disposition home or self-care (01) ==
LOC: MHTC 06:19 → ICUW 10:59 → MHTC 03-27 12:45
PROVIDERS: Radiology Diagnostic Radiology
DX: I70.201 Unspecified atherosclerosis of native arteries of extremities, right leg (principal); E78.5 Hyperlipidemia, unspecified; F17.210 Nicotine dependence, cigarettes, uncomplicated; Z88.0 Allergy status to penicillin; Z88.8 Allergy status to other drugs, medicaments and biological substances; Z79.01 Long term (current) use of anticoagulants; Z79.899 Other long term (current) drug therapy
CPT/HCPCS: 36415; 36416; 37229; 37232; 75710; 76937; 85049; 85347; 85610; 85730; 90686; 99152; 99153; C1724; C1725; C1769; C1887; C1894; C9113; G0008; J1644; J2060; J2250; J3010; J7030; Q9967

== ENCOUNTER 2019-04-01 14:18 | Emergency (ER) | payer MEDICARE ==
[~2019-04-01] VITALS: Ht 170.2 cm; Wt 91.6 kg
[2019-04-01 15:12] LABS: BASOPHILS ABSOLUTE AUTO 0.07 K/mm3 (0.00-0.23); BASOPHILS PERCENT AUTO 1 % (0-2); EOSINOPHILS ABSOLUTE AUTO 0.24 K/mm3 (0.00-0.68); EOSINOPHILS PERCENT AUTO 3 % (0-6); Hematocrit 40.6 % (33.0-51.0); Hemoglobin 12.8 g/dL (11.5-16.0); IMMATURE GRAN ABSOLUTE AUTO 0.03 K/mm3 (0.00-0.10); IMMATURE GRAN PERCENT AUTO 0 % (0-1); LYMPHOCYTES ABSOLUTE AUTO 3.34 K/mm3 (0.84-5.20); LYMPHOCYTES PERCENT AUTO 40 % (21-46); MONOCYTES PERCENT AUTO 5 % (4-13); Mean Corpuscular HGB 29.2 pg (26.0-34.0); Mean Corpuscular HGB Conc 31.5 g/dL (31.5-36.5); Mean Corpuscular Volume 93 fL (80-100); NEUTROPHILS ABSOLUTE AUTO 4.23 K/mm3 (1.96-9.15); NEUTROPHILS PERCENT AUTO 51 % (41-73); Platelet Count 472 K/mm3 (150-400); RDW Coefficient Variation 13.8 % (11.7-14.2); RDW Standard Deviation 46.9 fL (35.1-46.3); Red Blood Cell Count 4.38 M/mm3 (3.80-5.20); White Blood Cell Count 8.31 K/mm3 (4.00-11.30)
[2019-04-01 15:32] LABS: Alanine Aminotransfer (ALT/SGP 19 U/L (12-78); Albumin, Blood 3.7 g/dL (3.4-5.0); Albumin/Globulin Ratio 0.8 (0.8-1.8); Alk Phos 76 U/L (50-136); Anion Gap 7 mmol/L (6-16); Aspartate Aminotrans (AST/SGOT 13 U/L (12-37); Bilirubin, Total 0.1 mg/dL (0.1-1.0); Blood Urea Nitrogen 12 mg/dL (8-24); Bun/Creatinine Ratio 15.9 (12.0-20.0); CO2, Blood 25 mmol/L (21-32); Calcium, Blood 9.3 mg/dL (8.5-10.1); Chloride, Blood 106 mmol/L (98-108); Creatinine, Blood 0.76 mg/dL (0.40-1.00); Globulin, Blood 4.4 g/dL (2.2-4.0); Glomerular Filtration Rate >60 (60-); Glucose, Blood 81 mg/dL (70-99); Potassium, Blood 4.2 mmol/L (3.5-5.5); Sodium, Blood 138 mmol/L (136-145); Total Protein, Blood 8.1 g/dL (6.4-8.2)
[2019-04-01] MEDS ORDERED: Keflex500 MG PO (16:58)
[2019-04-01] MEDS ORDERED: Norco 5-325 Ta1 EACH PO (16:58)
== END 2019-04-01 17:34 | disposition home or self-care (01) ==
LOC: ER 14:18
PROVIDERS: Physician Assistant
DX: L03.031 Cellulitis of right toe (principal); Z88.0 Allergy status to penicillin; Z88.8 Allergy status to other drugs, medicaments and biological substances; Z79.899 Other long term (current) drug therapy; F32.9 Major depressive disorder, single episode, unspecified; F41.9 Anxiety disorder, unspecified; I10 Essential (primary) hypertension; F17.210 Nicotine dependence, cigarettes, uncomplicated
CPT/HCPCS: 36415; 73630; 80053; 83605; 85025; 99283-25

== ENCOUNTER 2019-06-18 00:33 | Day surgery (SDC) | payer MEDICARE ==
[~2019-06-18 00:33] MED LIST changes: +Keflex500 MG PO; +Prozac20 MG PO; +Roxicodone5 MG PO
== END 2019-06-18 22:50 | disposition home or self-care (01) ==
LOC: WOUND 00:33
DX: L97.511 Non-pressure chronic ulcer of other part of right foot limited to breakdown of skin (principal); I73.9 Peripheral vascular disease, unspecified; Z88.0 Allergy status to penicillin; Z87.891 Personal history of nicotine dependence
CPT/HCPCS: G0463

== ENCOUNTER 2019-06-25 00:11 | Day surgery (SDC) | payer MEDICARE | END 2019-06-25 22:55 | disposition home or self-care (01) | LOC: WOUND 00:11 | DX: L97.519 Non-pressure chronic ulcer of other part of right foot with unspecified severity (principal); D68.51 Activated protein C resistance; I73.9 Peripheral vascular disease, unspecified; J45.909 Unspecified asthma, uncomplicated; F41.9 Anxiety disorder, unspecified; F32.9 Major depressive disorder, single episode, unspecified; Z79.899 Other long term (current) drug therapy; Z79.01 Long term (current) use of anticoagulants | CPT/HCPCS: G0463 ==

== ENCOUNTER 2019-07-02 00:23 | Day surgery (SDC) | payer MEDICARE | END 2019-07-02 22:51 | disposition home or self-care (01) | LOC: WOUND 00:23 | DX: L97.511 Non-pressure chronic ulcer of other part of right foot limited to breakdown of skin (principal); I73.9 Peripheral vascular disease, unspecified ==

== ENCOUNTER 2019-07-06 04:07 | Emergency (ER) | payer MEDICARE ==
[~2019-07-06] VITALS: Ht 170.2 cm; Wt 97.5 kg
[2019-07-06 06:43] LABS: BASOPHILS ABSOLUTE AUTO 0.05 K/mm3 (0.00-0.23); BASOPHILS PERCENT AUTO 1 % (0-2); EOSINOPHILS ABSOLUTE AUTO 0.23 K/mm3 (0.00-0.68); EOSINOPHILS PERCENT AUTO 3 % (0-6); Hematocrit 35.5 % (33.0-51.0); Hemoglobin 11.3 g/dL (11.5-16.0); IMMATURE GRAN ABSOLUTE AUTO 0.02 K/mm3 (0.00-0.10); IMMATURE GRAN PERCENT AUTO 0 % (0-1); LYMPHOCYTES ABSOLUTE AUTO 3.15 K/mm3 (0.84-5.20); LYMPHOCYTES PERCENT AUTO 41 % (21-46); MONOCYTES ABSOLUTE AUTO 0.62 K/mm3 (0.16-1.47); MONOCYTES PERCENT AUTO 8 % (4-13); Mean Corpuscular HGB 28.9 pg (26.0-34.0); Mean Corpuscular HGB Conc 31.8 g/dL (31.5-36.5); Mean Corpuscular Volume 91 fL (80-100); Mean Platelet Volume 10.6 fL (9.1-12.4); NEUTROPHILS PERCENT AUTO 47 % (41-73); Platelet Count 268 K/mm3 (150-400); RDW Coefficient Variation 16.1 % (11.7-14.2); RDW Standard Deviation 53.6 fL (35.1-46.3); Red Blood Cell Count 3.91 M/mm3 (3.80-5.20); White Blood Cell Count 7.67 K/mm3 (4.00-11.30)
[2019-07-06 07:11] LABS: Alanine Aminotransfer (ALT/SGP 17 U/L (12-78); Albumin/Globulin Ratio 0.9 (0.8-1.8); Alk Phos 68 U/L (50-136); Anion Gap 3 mmol/L (6-16); Aspartate Aminotrans (AST/SGOT 9 U/L (12-37); Bilirubin, Total <0.1 mg/dL (0.1-1.0); Blood Urea Nitrogen 14 mg/dL (8-24); Bun/Creatinine Ratio 18.6 (12.0-20.0); CO2, Blood 29 mmol/L (21-32); Calcium, Blood 8.7 mg/dL (8.5-10.1); Chloride, Blood 111 mmol/L (98-108); Creatinine, Blood 0.75 mg/dL (0.40-1.00); Globulin, Blood 3.4 g/dL (2.2-4.0); Glomerular Filtration Rate >60 (60-); Glucose, Blood 90 mg/dL (70-99); Potassium, Blood 4.2 mmol/L (3.5-5.5); Sodium, Blood 143 mmol/L (136-145); Total Protein, Blood 6.4 g/dL (6.4-8.2)
== END 2019-07-06 07:32 | disposition short-term general hospital (02) ==
LOC: ER 04:07
PROVIDERS: Emergency Medicine
DX: T82.598A Other mechanical complication of other cardiac and vascular devices and implants, initial encounter (principal); Z86.718 Personal history of other venous thrombosis and embolism; Z86.711 Personal history of pulmonary embolism; Z87.891 Personal history of nicotine dependence; Z79.02 Long term (current) use of antithrombotics/antiplatelets
CPT/HCPCS: 36415; 80053; 85025; 93926; 96374; 96375; 96376; 99285-25; J1170; J2405

== ENCOUNTER 2019-07-24 06:08 | Emergency (ER) | payer MEDICARE ==
[~2019-07-24] VITALS: Ht 170.2 cm; Wt 97.5 kg
[2019-07-24 06:59] LABS: BASOPHILS ABSOLUTE AUTO 0.05 K/mm3 (0.00-0.23); BASOPHILS PERCENT AUTO 0 % (0-2); EOSINOPHILS ABSOLUTE AUTO 0.27 K/mm3 (0.00-0.68); EOSINOPHILS PERCENT AUTO 2 % (0-6); Hematocrit 30.2 % (33.0-51.0); Hemoglobin 9.1 g/dL (11.5-16.0); IMMATURE GRAN ABSOLUTE AUTO 0.09 K/mm3 (0.00-0.10); IMMATURE GRAN PERCENT AUTO 1 % (0-1); LYMPHOCYTES PERCENT AUTO 25 % (21-46); MONOCYTES ABSOLUTE AUTO 0.63 K/mm3 (0.16-1.47); MONOCYTES PERCENT AUTO 6 % (4-13); Mean Corpuscular HGB 27.6 pg (26.0-34.0); Mean Corpuscular HGB Conc 30.1 g/dL (31.5-36.5); Mean Corpuscular Volume 92 fL (80-100); Mean Platelet Volume 9.4 fL (9.1-12.4); NEUTROPHILS ABSOLUTE AUTO 7.37 K/mm3 (1.96-9.15); NEUTROPHILS PERCENT AUTO 66 % (41-73); Platelet Count 649 K/mm3 (150-400); RDW Coefficient Variation 16.1 % (11.7-14.2); RDW Standard Deviation 54.4 fL (35.1-46.3); White Blood Cell Count 11.21 K/mm3 (4.00-11.30)
[2019-07-24 07:10] LABS: Alanine Aminotransfer (ALT/SGP 23 U/L (12-78); Albumin, Blood 3.3 g/dL (3.4-5.0); Albumin/Globulin Ratio 0.8 (0.8-1.8); Alk Phos 74 U/L (50-136); Anion Gap 9 mmol/L (6-16); Aspartate Aminotrans (AST/SGOT 16 U/L (12-37); Bilirubin, Total 0.2 mg/dL (0.1-1.0); Blood Urea Nitrogen 19 mg/dL (8-24); Bun/Creatinine Ratio 27.8 (12.0-20.0); CO2, Blood 21 mmol/L (21-32); Calcium, Blood 8.9 mg/dL (8.5-10.1); Chloride, Blood 111 mmol/L (98-108); Creatinine, Blood 0.68 mg/dL (0.40-1.00); Glomerular Filtration Rate >60 (60-); Glucose, Blood 92 mg/dL (70-99); Potassium, Blood 4.5 mmol/L (3.5-5.5); Sodium, Blood 141 mmol/L (136-145); Total Protein, Blood 7.3 g/dL (6.4-8.2)
== END 2019-07-24 09:25 | disposition short-term general hospital (02) ==
LOC: ER 06:08
PROVIDERS: Emergency Medicine
DX: T82.898A Other specified complication of vascular prosthetic devices, implants and grafts, initial encounter (principal); I77.1 Stricture of artery; F32.9 Major depressive disorder, single episode, unspecified; I10 Essential (primary) hypertension; I73.9 Peripheral vascular disease, unspecified; F17.210 Nicotine dependence, cigarettes, uncomplicated; Z86.718 Personal history of other venous thrombosis and embolism; Z86.711 Personal history of pulmonary embolism; Z88.0 Allergy status to penicillin; Z88.8 Allergy status to other drugs, medicaments and biological substances; Z79.899 Other long term (current) drug therapy
CPT/HCPCS: 36415; 80053; 85025; 93926; 96374; 96375; 96376; 99285-25; J1170; J2405

== ENCOUNTER 2019-08-29 12:01 | Emergency (ER) | payer MEDICARE ==
[~2019-08-29] VITALS: Ht 172.7 cm; Wt 97.5 kg
[2019-08-29] MEDS ORDERED: ENOX100I (12:34)
[2019-08-29] MEDS ORDERED: Aspirin EC81 MG PO (12:34)
[2019-08-29 13:08] LABS: BASOPHILS ABSOLUTE AUTO 0.06 K/mm3 (0.00-0.23); BASOPHILS PERCENT AUTO 1 % (0-2); EOSINOPHILS ABSOLUTE AUTO 0.19 K/mm3 (0.00-0.68); EOSINOPHILS PERCENT AUTO 2 % (0-6); Hemoglobin 9.4 g/dL (11.5-16.0); IMMATURE GRAN ABSOLUTE AUTO 0.06 K/mm3 (0.00-0.10); IMMATURE GRAN PERCENT AUTO 1 % (0-1); LYMPHOCYTES ABSOLUTE AUTO 3.92 K/mm3 (0.84-5.20); LYMPHOCYTES PERCENT AUTO 36 % (21-46); MONOCYTES PERCENT AUTO 6 % (4-13); Mean Corpuscular HGB 25.1 pg (26.0-34.0); Mean Corpuscular HGB Conc 30.3 g/dL (31.5-36.5); Mean Corpuscular Volume 83 fL (80-100); Mean Platelet Volume 9.7 fL (9.1-12.4); NEUTROPHILS ABSOLUTE AUTO 6.04 K/mm3 (1.96-9.15); NEUTROPHILS PERCENT AUTO 55 % (41-73); Platelet Count 467 K/mm3 (150-400); RDW Coefficient Variation 15.8 % (11.7-14.2); RDW Standard Deviation 47.7 fL (35.1-46.3); Red Blood Cell Count 3.75 M/mm3 (3.80-5.20); White Blood Cell Count 10.97 K/mm3 (4.00-11.30)
[2019-08-29 13:24] LABS: Anion Gap 4 mmol/L (6-16); Blood Urea Nitrogen 17 mg/dL (8-24); Bun/Creatinine Ratio 25.6 (12.0-20.0); CO2, Blood 26 mmol/L (21-32); Calcium, Blood 8.5 mg/dL (8.5-10.1); Chloride, Blood 107 mmol/L (98-108); Creatinine, Blood 0.66 mg/dL (0.40-1.00); Glomerular Filtration Rate >60 (60-); Glucose, Blood 103 mg/dL (70-99); International Normalized Ratio 0.94; Potassium, Blood 3.9 mmol/L (3.5-5.5); Prothrombin Time Results 10.1 Sec (9.7-11.5); Sodium, Blood 137 mmol/L (136-145)
[2019-08-29] MEDS ORDERED: ARIPIPRAZOLE15 MG PO (13:26)
[2019-08-29] MEDS ORDERED: ENOX100I SC (13:27)
[2019-08-29] MEDS ORDERED: PROZAC20 MG PO (13:27)
[2019-08-29] MEDS ORDERED: METOPROLOL TART25 MG PO (13:28)
[2019-08-29] MEDS ORDERED: HYDMOR4 PO (15:09)
[2019-08-29] MEDS ORDERED: ONDA4ODT MM (15:13)
== END 2019-08-29 15:18 | disposition home or self-care (01) ==
LOC: ER 12:01
PROVIDERS: Emergency Medicine
DX: I77.1 Stricture of artery (principal); Z88.0 Allergy status to penicillin; Z88.8 Allergy status to other drugs, medicaments and biological substances; Z79.899 Other long term (current) drug therapy; Z79.01 Long term (current) use of anticoagulants; Z79.02 Long term (current) use of antithrombotics/antiplatelets; Z86.718 Personal history of other venous thrombosis and embolism; Z86.711 Personal history of pulmonary embolism; F32.9 Major depressive disorder, single episode, unspecified; F41.9 Anxiety disorder, unspecified; I10 Essential (primary) hypertension
CPT/HCPCS: 36415; 80048; 85025; 85610; 85730; 93005; 93010; 93926; 96361; 96374; 96375; 99284-25; J1170; J1885; J2405; J7030

== ENCOUNTER 2019-10-16 20:07 | Emergency (ER) | payer MEDICARE ==
[~2019-10-16] VITALS: Ht 170.2 cm; Wt 97.5 kg
[~2019-10-16 20:07] MED LIST changes: +ARIPIPRAZOLE15 MG PO; +Aspirin EC81 MG PO; +ENOX100I; +ENOX100I SC; +HYDMOR4 PO; +METOPROLOL TART25 MG PO
== END 2019-10-16 20:30 | disposition home or self-care (01) ==
LOC: ER 20:07
DX: Z51.81 Encounter for therapeutic drug level monitoring (principal); Z79.01 Long term (current) use of anticoagulants; Z79.899 Other long term (current) drug therapy; Z88.0 Allergy status to penicillin; Z88.8 Allergy status to other drugs, medicaments and biological substances; Z79.82 Long term (current) use of aspirin; Z86.718 Personal history of other venous thrombosis and embolism; Z86.711 Personal history of pulmonary embolism
CPT/HCPCS: 96372; 99281-25; J1650

== ENCOUNTER 2020-02-08 09:47 | Emergency (ER) | payer MEDICARE ==
[~2020-02-08] VITALS: Ht 170.2 cm; Wt 90.7 kg
[2020-02-08] MEDS ORDERED: Oxycodone HCl20 M1 PO (10:03)
[2020-02-08] MEDS ORDERED: OXYC10TA19 PO (10:05)
[2020-02-08] MEDS ORDERED: ONDA4ODT MM (11:10)
[2020-02-08] MEDS ORDERED: CLON.1 PO (11:10)
== END 2020-02-08 11:25 | disposition home or self-care (01) ==
LOC: ER 09:47
DX: F11.23 Opioid dependence with withdrawal (principal); Z48.01 Encounter for change or removal of surgical wound dressing; Z89.511 Acquired absence of right leg below knee; D68.51 Activated protein C resistance; F32.9 Major depressive disorder, single episode, unspecified; F41.9 Anxiety disorder, unspecified; I10 Essential (primary) hypertension; F17.290 Nicotine dependence, other tobacco product, uncomplicated; Z88.0 Allergy status to penicillin; Z88.8 Allergy status to other drugs, medicaments and biological substances; Z79.899 Other long term (current) drug therapy; Z86.711 Personal history of pulmonary embolism; Z79.82 Long term (current) use of aspirin
CPT/HCPCS: 99283-25

== ENCOUNTER → 2020-05-25 | Outpatient (CLI) | payer MEDICARE ==
[~2020-05-25] MED LIST changes: +CLON.1 PO; +OXYC10TA19 PO; +Oxycodone HCl20 M1 PO
== END | disposition home or self-care (01) ==
LOC: LAB SHORT 17:57 → LAB 17:57
DX: L08.9 Local infection of the skin and subcutaneous tissue, unspecified (principal)
CPT/HCPCS: 87070; 87075; 87077; 87147; 87186; 87205

== ENCOUNTER 2020-09-22 19:59 | Emergency (ER) | payer MEDICARE ==
[~2020-09-22] VITALS: Ht 170.2 cm; Wt 97.5 kg
== END 2020-09-22 21:52 | disposition home or self-care (01) ==
LOC: ER 19:59
DX: R60.0 Localized edema (principal); I10 Essential (primary) hypertension; Z88.0 Allergy status to penicillin; Z88.8 Allergy status to other drugs, medicaments and biological substances; Z79.899 Other long term (current) drug therapy; Z79.82 Long term (current) use of aspirin
CPT/HCPCS: 93971; 99283-25

== ENCOUNTER 2020-10-11 10:02 | Emergency (ER) | payer MEDICARE ==
[~2020-10-11] VITALS: Ht 172.7 cm; Wt 97.5 kg
[2020-10-11] MEDS ORDERED: ENOX100I SC (10:38)
[2020-10-11] MEDS ORDERED: PLAVIX75 MG PO (10:39)
[2020-10-11 11:03] LABS: BASOPHILS ABSOLUTE AUTO 0.05 K/mm3 (0.00-0.23); BASOPHILS PERCENT AUTO 1 % (0-2); EOSINOPHILS ABSOLUTE AUTO 0.21 K/mm3 (0.00-0.68); EOSINOPHILS PERCENT AUTO 3 % (0-6); Hematocrit 26.8 % (33.0-51.0); Hemoglobin 7.5 g/dL (11.5-16.0); IMMATURE GRAN ABSOLUTE AUTO 0.04 K/mm3 (0.00-0.10); IMMATURE GRAN PERCENT AUTO 1 % (0-1); LYMPHOCYTES PERCENT AUTO 33 % (21-46); MONOCYTES ABSOLUTE AUTO 0.51 K/mm3 (0.16-1.47); MONOCYTES PERCENT AUTO 7 % (4-13); Mean Corpuscular HGB 22.2 pg (26.0-34.0); Mean Corpuscular Volume 79 fL (80-100); Mean Platelet Volume 9.5 fL (9.1-12.4); NEUTROPHILS ABSOLUTE AUTO 4.07 K/mm3 (1.96-9.15); NEUTROPHILS PERCENT AUTO 56 % (41-73); Platelet Count 583 K/mm3 (150-400); RDW Coefficient Variation 18.5 % (11.7-14.2); RDW Standard Deviation 52.8 fL (35.1-46.3); Red Blood Cell Count 3.38 M/mm3 (3.80-5.20); White Blood Cell Count 7.28 K/mm3 (4.00-11.30)
[2020-10-11 11:31] LABS: Alanine Aminotransfer (ALT/SGP 16 U/L (12-78); Albumin, Blood 3.1 g/dL (3.4-5.0); Albumin/Globulin Ratio 0.8 (0.8-1.8); Alk Phos 94 U/L (50-136); Anion Gap 7 mmol/L (6-16); Aspartate Aminotrans (AST/SGOT 6 U/L (12-37); Bilirubin, Total <0.1 mg/dL (0.1-1.0); Blood Urea Nitrogen 15 mg/dL (8-24); Bun/Creatinine Ratio 23.4 (12.0-20.0); CO2, Blood 22 mmol/L (21-32); Calcium, Blood 8.9 mg/dL (8.5-10.1); Chloride, Blood 110 mmol/L (98-108); Creatinine, Blood 0.64 mg/dL (0.40-1.00); Globulin, Blood 3.9 g/dL (2.2-4.0); Glomerular Filtration Rate >60 (60-); Glucose, Blood 91 mg/dL (70-99); Potassium, Blood 3.9 mmol/L (3.5-5.5); Sodium, Blood 139 mmol/L (136-145)
[2020-10-11 11:38] LABS: Source, Urine Clean Catch
[2020-10-11 11:51] LABS: Appearance, Urine Clear (Clear); Bilirubin, Urine Neg (Neg); Blood, Urine Neg (Neg); Color, Urine Yellow (P-Yellow); Glucose Qualitative, Urine Neg (Neg); Ketones, Urine Neg (Neg); Leukocyte Esterase, Urine 1+ (Neg); Nitrite, Urine Neg (Neg); Protein, Urine Neg (Neg); Urobilinogen, Urine NORM (Normal)
[2020-10-11 13:04] LABS: Bacteria Mod /hpf; Mucus Light (0-Heavy); Red Blood Cells, Urine Not Seen /hpf (0-2); Squamous Epithelial Cells Few /hpf (Few)
[2020-10-11 13:24] LABS: SARS-Cov-2 (COVID-19) PCR, MMC NEGATIVE (NEGATIVE)
[2020-10-11] MEDS ORDERED: PROM25 PO (14:01)
== END 2020-10-11 14:13 | disposition home or self-care (01) ==
LOC: ER 10:02
PROVIDERS: Emergency Medicine; Physician Assistant
DX: R22.31 Localized swelling, mass and lump, right upper limb (principal); R19.7 Diarrhea, unspecified; D64.9 Anemia, unspecified; I10 Essential (primary) hypertension; Z88.0 Allergy status to penicillin; Z88.8 Allergy status to other drugs, medicaments and biological substances; Z79.82 Long term (current) use of aspirin; Z79.02 Long term (current) use of antithrombotics/antiplatelets; Z20.822 Contact with and (suspected) exposure to COVID-19
CPT/HCPCS: 36415; 71045; 76882; 80053; 81001; 83690; 85025; 86850; 86900; 86901; 87086; 93005; 93010; 96361; 96374; 96375; 99284-25; J2405; J2550; J7030; U0004

== ENCOUNTER → 2020-10-15 | Outpatient (CLI) | payer MEDICARE ==
[2020-10-15 14:23] LABS: BASOPHILS ABSOLUTE AUTO 0.04 K/mm3 (0.00-0.23); BASOPHILS PERCENT AUTO 1 % (0-2); EOSINOPHILS ABSOLUTE AUTO 0.18 K/mm3 (0.00-0.68); EOSINOPHILS PERCENT AUTO 3 % (0-6); Hematocrit 27.9 % (33.0-51.0); IMMATURE GRAN ABSOLUTE AUTO 0.04 K/mm3 (0.00-0.10); IMMATURE GRAN PERCENT AUTO 1 % (0-1); LYMPHOCYTES ABSOLUTE AUTO 2.19 K/mm3 (0.84-5.20); LYMPHOCYTES PERCENT AUTO 31 % (21-46); MONOCYTES ABSOLUTE AUTO 0.47 K/mm3 (0.16-1.47); MONOCYTES PERCENT AUTO 7 % (4-13); Mean Corpuscular HGB 21.9 pg (26.0-34.0); Mean Corpuscular HGB Conc 28.7 g/dL (31.5-36.5); Mean Corpuscular Volume 76 fL (80-100); Mean Platelet Volume 9.6 fL (9.1-12.4); NEUTROPHILS ABSOLUTE AUTO 4.09 K/mm3 (1.96-9.15); NEUTROPHILS PERCENT AUTO 58 % (41-73); Platelet Count 533 K/mm3 (150-400); RDW Coefficient Variation 18.3 % (11.7-14.2); Red Blood Cell Count 3.65 M/mm3 (3.80-5.20); White Blood Cell Count 7.01 K/mm3 (4.00-11.30)
[2020-10-15 14:48] LABS: Percent Saturation 2.1 % (15.0-50.0)
== END | disposition home or self-care (01) ==
LOC: LAB SHORT 14:00 → LAB 14:00
PROVIDERS: Internal Medicine Hematology & Oncology
DX: D68.59 Other primary thrombophilia (principal); D64.9 Anemia, unspecified
CPT/HCPCS: 82728; 83540; 83550; 85025

== ENCOUNTER → 2020-10-28 | Outpatient (CLI) | payer MEDICARE | END | disposition home or self-care (01) | LOC: LAB SHORT 10:15 → LAB 10:15 | DX: C56.9 Malignant neoplasm of unspecified ovary (principal) | CPT/HCPCS: 86304 ==

== ENCOUNTER 2021-02-04 05:16 | Emergency (ER) | payer MEDICARE ==
[~2021-02-04] VITALS: Ht 170.2 cm; Wt 102.5 kg
[~2021-02-04 05:16] MED LIST changes: +CEPHALEXIN500 M2 PO; +SULTRIDS PO
[2021-02-04] MEDS ORDERED: OXYC10ER (06:08)
[2021-02-04] MEDS ORDERED: ACET500 PO (06:09)
[2021-02-04] MEDS ORDERED: ASCO500 PO (06:09)
[2021-02-04] MEDS ORDERED: FERSU300 PO (06:09)
== END 2021-02-04 07:35 | disposition home or self-care (01) ==
LOC: ER 05:16
DX: T80.89XA Other complications following infusion, transfusion and therapeutic injection, initial encounter (principal); Z86.718 Personal history of other venous thrombosis and embolism; Z86.711 Personal history of pulmonary embolism; Z87.891 Personal history of nicotine dependence
CPT/HCPCS: 99282

== ENCOUNTER 2021-10-19 17:52 | Emergency (ER) | payer MEDICARE ==
[~2021-10-19] VITALS: Ht 170.2 cm; Wt 110.2 kg
[~2021-10-19 17:52] MED LIST changes: +ACET500 PO; +ASCO500 PO; +ELIQUIS5 M2 PO; +FERSU300 PO; +OXYC10ER
== END 2021-10-19 21:33 | disposition home or self-care (01) ==
LOC: ER 17:52
DX: I73.9 Peripheral vascular disease, unspecified (principal); I10 Essential (primary) hypertension; Z95.828 Presence of other vascular implants and grafts; Z88.0 Allergy status to penicillin; Z88.5 Allergy status to narcotic agent; Z79.899 Other long term (current) drug therapy; Z86.718 Personal history of other venous thrombosis and embolism; Z86.711 Personal history of pulmonary embolism
CPT/HCPCS: 93926

== ENCOUNTER 2022-08-09 17:44 | Emergency (ER) | payer MEDICARE ==
[~2022-08-09] VITALS: Ht 170.2 cm; Wt 106.6 kg
[~2022-08-09 17:44] MED LIST changes: +METO10 PO
[2022-08-09 18:01] VITALS: BP 145/92
== END 2022-08-09 20:06 | disposition home or self-care (01) ==
LOC: ER 17:44
DX: I73.9 Peripheral vascular disease, unspecified (principal); I10 Essential (primary) hypertension; Z88.0 Allergy status to penicillin; Z88.8 Allergy status to other drugs, medicaments and biological substances; Z79.82 Long term (current) use of aspirin; Z79.01 Long term (current) use of anticoagulants; Z79.899 Other long term (current) drug therapy
CPT/HCPCS: 93926

== ENCOUNTER → 2022-12-23 | Outpatient (CLI) | payer MEDICARE ==
[2022-12-23 19:45] LABS: Albumin, Blood 3.7 g/dL (3.4-5.0); Albumin/Globulin Ratio 1.1 (0.8-1.8); Bilirubin, Total 0.1 mg/dL (0.1-1.0); Bun/Creatinine Ratio 19.9 (12.0-20.0); Calcium, Blood 9.3 mg/dL (8.5-10.1); Creatinine, Blood 0.7 mg/dL (0.40-1.00); Globulin, Blood 3.4 g/dL (2.2-4.0); Potassium, Blood 3.9 mmol/L (3.5-5.5); Total Protein, Blood 7.1 g/dL (6.4-8.2)
== END | disposition home or self-care (01) ==
LOC: LAB SHORT 17:38 → LAB 17:38
PROVIDERS: Internal Medicine Hematology & Oncology
DX: I10 Essential (primary) hypertension (principal)
CPT/HCPCS: 80053

== ENCOUNTER 2023-03-07 08:43 | Emergency (ER) | payer OTHER, MEDICARE ==
[~2023-03-07] VITALS: Ht 170.2 cm; Wt 113.4 kg
[2023-03-07 08:51] VITALS: BP 151/89
[2023-03-07] MEDS ORDERED: Norco 7.5-3251 EACH PO (10:06)
== END 2023-03-07 10:15 | disposition home or self-care (01) ==
LOC: ER 08:43
DX: M25.561 Pain in right knee (principal); M25.551 Pain in right hip; M25.572 Pain in left ankle and joints of left foot; Z89.511 Acquired absence of right leg below knee; Z99.3 Dependence on wheelchair; I10 Essential (primary) hypertension; Z86.718 Personal history of other venous thrombosis and embolism; Z79.82 Long term (current) use of aspirin; Z79.02 Long term (current) use of antithrombotics/antiplatelets; Z79.01 Long term (current) use of anticoagulants; Z88.0 Allergy status to penicillin; Z88.8 Allergy status to other drugs, medicaments and biological substances; W01.0XXA Fall on same level from slipping, tripping and stumbling without subsequent striking against object, initial encounter; Y93.89 Activity, other specified
CPT/HCPCS: 73562-RT; 73610; 99283-25; A9270

== ENCOUNTER → 2023-08-14 | Outpatient (CLI) | payer MEDICARE ==
[~2023-08-14] MED LIST changes: +Norco 7.5-3251 EACH PO
[2023-08-15 12:11] LABS: Albumin, Blood 3.8 g/dL (3.4-5.0); Albumin/Globulin Ratio 1.2 (0.8-1.8); Bilirubin, Total 0.2 mg/dL (0.1-1.0); Bun/Creatinine Ratio 28.1 (12.0-20.0); Calcium, Blood 9.7 mg/dL (8.5-10.1); Creatinine, Blood 0.64 mg/dL (0.40-1.00); Globulin, Blood 3.1 g/dL (2.2-4.0); Phosphorus, Blood 4.8 mg/dL (2.5-4.9); Potassium, Blood 4.3 mmol/L (3.5-5.5); Total Protein, Blood 6.9 g/dL (6.4-8.2)
== END ==
LOC: LAB 15:51 → LAB SHORT 15:51
PROVIDERS: Internal Medicine Hematology & Oncology
DX: K62.5 Hemorrhage of anus and rectum (principal); I10 Essential (primary) hypertension
CPT/HCPCS: 80053; 84100

== ENCOUNTER 2023-08-28 23:41 | Emergency (ER) | payer MEDICARE ==
[~2023-08-28] VITALS: Ht 167.6 cm; Wt 111.1 kg
[2023-08-29] MEDS ORDERED: Ketorolac Tromethamine 30mg Vial IV ONE (00:25)
[2023-08-29] MEDS ORDERED: Morphine Sulfate 4 MG/1 ML Injection IV ONE ×2 (00:25→03:45)
[2023-08-29] MEDS ORDERED: Ondansetron HCl 2 MG / ML 2ML Vial IV ONE (00:25)
[2023-08-29 00:31] LABS: BASOPHILS ABSOLUTE AUTO 0.07 K/mm3 (0.00-0.23); BASOPHILS PERCENT AUTO 1 % (0-2); EOSINOPHILS ABSOLUTE AUTO 0.25 K/mm3 (0.00-0.68); EOSINOPHILS PERCENT AUTO 3 % (0-6); Hematocrit 40.1 % (33.0-51.0); Hemoglobin 13.7 g/dL (11.5-16.0); IMMATURE GRAN ABSOLUTE AUTO 0.04 K/mm3 (0.00-0.10); IMMATURE GRAN PERCENT AUTO 0 % (0-1); LYMPHOCYTES ABSOLUTE AUTO 3.01 K/mm3 (0.84-5.20); LYMPHOCYTES PERCENT AUTO 31 % (21-46); MONOCYTES ABSOLUTE AUTO 0.57 K/mm3 (0.16-1.47); MONOCYTES PERCENT AUTO 6 % (4-13); Mean Corpuscular HGB 30.5 pg (26.0-34.0); Mean Corpuscular HGB Conc 34.2 g/dL (31.5-36.5); Mean Corpuscular Volume 89 fL (80-100); Mean Platelet Volume 10.5 fL (9.1-12.4); NEUTROPHILS ABSOLUTE AUTO 5.86 K/mm3 (1.96-9.15); NEUTROPHILS PERCENT AUTO 60 % (41-73); Platelet Count 328 K/mm3 (150-400); RDW Coefficient Variation 13.5 % (11.7-14.2); Red Blood Cell Count 4.49 M/mm3 (3.80-5.20)
[2023-08-29 00:44] LABS: Albumin, Blood 3.5 g/dL (3.4-5.0); Albumin/Globulin Ratio 0.9 (0.8-1.8); Bilirubin, Total 0.5 mg/dL (0.1-1.0); Bun/Creatinine Ratio 25.5 (12.0-20.0); Calcium, Blood 10.4 mg/dL (8.5-10.1); Creatinine, Blood 0.63 mg/dL (0.40-1.00); Globulin, Blood 3.9 g/dL (2.2-4.0); Magnesium, Blood 1.9 mg/dL (1.6-2.4); Total Protein, Blood 7.4 g/dL (6.4-8.2)
[2023-08-29] MEDS ORDERED: Droperidol 5 mg/2 ml Vial IV ONE (03:45)
[2023-08-29 05:15] VITALS: BP 125/74
[2023-08-30] MEDS ORDERED: CIME400 PO (12:26)
[2023-08-30] MEDS ORDERED: ONDA4ODT MM (12:26)
[2023-08-30] MEDS ORDERED: HYDR1TAB94 PO (12:26)
== END 2023-08-29 05:15 | disposition home or self-care (01) ==
LOC: ER 23:41
PROVIDERS: Student in an Organized Health Care Education/Training Program
DX: R07.89 Other chest pain (principal); D68.51 Activated protein C resistance; J42 Unspecified chronic bronchitis; M35.5 Multifocal fibrosclerosis; F11.90 Opioid use, unspecified, uncomplicated; I10 Essential (primary) hypertension; J44.9 Chronic obstructive pulmonary disease, unspecified; Z86.711 Personal history of pulmonary embolism; Z86.718 Personal history of other venous thrombosis and embolism; Z79.82 Long term (current) use of aspirin; Z79.02 Long term (current) use of antithrombotics/antiplatelets; Z79.899 Other long term (current) drug therapy; Z88.0 Allergy status to penicillin; Z88.8 Allergy status to other drugs, medicaments and biological substances
CPT/HCPCS: 71260; 80053; 83690; 83735; 84484; 85025; 96374-59; 96375-59; 96376-59; 99285-25; J1790; J1885; J2270; J2405; Q9967

== ENCOUNTER 2023-08-30 06:57 | Emergency (ER) | payer MEDICARE ==
[~2023-08-30] VITALS: Ht 170.2 cm; Wt 111.1 kg
[2023-08-30] MEDS ORDERED: NS 1,000 ML IV ONE (07:30)
[2023-08-30] MEDS ORDERED: Ondansetron HCl 2 MG / ML 2ML Vial IV ONE ×2 (07:30→08:00)
[2023-08-30] MEDS ORDERED: NS 1,000 ML IV SCH ×2 (07:40→08:00)
[2023-08-30 07:46] LABS: BASOPHILS ABSOLUTE AUTO 0.06 K/mm3 (0.00-0.23); BASOPHILS PERCENT AUTO 1 % (0-2); EOSINOPHILS ABSOLUTE AUTO 0.27 K/mm3 (0.00-0.68); EOSINOPHILS PERCENT AUTO 4 % (0-6); Hematocrit 40.2 % (33.0-51.0); Hemoglobin 13.7 g/dL (11.5-16.0); IMMATURE GRAN ABSOLUTE AUTO 0.03 K/mm3 (0.00-0.10); IMMATURE GRAN PERCENT AUTO 0 % (0-1); LYMPHOCYTES ABSOLUTE AUTO 2.19 K/mm3 (0.84-5.20); LYMPHOCYTES PERCENT AUTO 30 % (21-46); MONOCYTES ABSOLUTE AUTO 0.48 K/mm3 (0.16-1.47); MONOCYTES PERCENT AUTO 7 % (4-13); Mean Corpuscular HGB 30.8 pg (26.0-34.0); Mean Corpuscular HGB Conc 34.1 g/dL (31.5-36.5); Mean Corpuscular Volume 90 fL (80-100); Mean Platelet Volume 10.1 fL (9.1-12.4); NEUTROPHILS ABSOLUTE AUTO 4.27 K/mm3 (1.96-9.15); NEUTROPHILS PERCENT AUTO 59 % (41-73); Platelet Count 299 K/mm3 (150-400); RDW Coefficient Variation 13.5 % (11.7-14.2); RDW Standard Deviation 45.1 fL (35.1-46.3); Red Blood Cell Count 4.45 M/mm3 (3.80-5.20)
[2023-08-30 07:54] LABS: Albumin, Blood 3.5 g/dL (3.4-5.0); Albumin/Globulin Ratio 0.9 (0.8-1.8); Bilirubin, Total 0.3 mg/dL (0.1-1.0); Calcium, Blood 9.4 mg/dL (8.5-10.1); Creatinine, Blood 0.6 mg/dL (0.40-1.00); Globulin, Blood 3.8 g/dL (2.2-4.0); Potassium, Blood 4.4 mmol/L (3.5-5.5); Total Protein, Blood 7.3 g/dL (6.4-8.2)
[2023-08-30] MEDS ORDERED: Morphine Sulfate 4 MG/1 ML Injection IV ONE (08:00)
[2023-08-30] MEDS ORDERED: Atropine/Scopalam/Hyoscam/PB 5 ML UDC PO ONE (10:05)
[2023-08-30] MEDS ORDERED: Lidocaine 2% Viscous Soln 15 ML UDC PO ONE (10:05)
[2023-08-30] MEDS ORDERED: Mag Hydrox/AL Hydrox/Simeth 30 ML UDC PO ONE (10:05)
[2023-08-30] MEDS ORDERED: HYDROmorphone HCl/Pf 1MG SYR IV ONE (10:50)
[2023-08-30] MEDS ORDERED: CIME400 PO (12:26)
[2023-08-30] MEDS ORDERED: ONDA4ODT MM (12:26)
[2023-08-30] MEDS ORDERED: HYDR1TAB94 PO (12:26)
[2023-08-30 12:35] VITALS: BP 149/95
== END 2023-08-30 12:50 | disposition home or self-care (01) ==
LOC: ER 06:57
PROVIDERS: Emergency Medicine
DX: R10.13 Epigastric pain (principal); R10.11 Right upper quadrant pain; R11.2 Nausea with vomiting, unspecified; Z87.891 Personal history of nicotine dependence; I10 Essential (primary) hypertension; Z88.0 Allergy status to penicillin; Z88.8 Allergy status to other drugs, medicaments and biological substances; Z88.5 Allergy status to narcotic agent; Z79.82 Long term (current) use of aspirin; Z79.02 Long term (current) use of antithrombotics/antiplatelets; Z79.899 Other long term (current) drug therapy
CPT/HCPCS: 71045; 74177; 76705; 80053; 83690; 85025; 87086; 93005; 93010; 96361; 96374-59; 96375; 99284-25; A9270; J1170; J2270; J2405; J7030; Q9967

== ENCOUNTER 2023-09-16 19:45 | Emergency (ER) | payer MEDICARE ==
[~2023-09-16] VITALS: Ht 170.2 cm; Wt 113.4 kg
[~2023-09-16 19:45] MED LIST changes: +CIME400 PO
[2023-09-16] MEDS ORDERED: Atropine/Scopalam/Hyoscam/PB 5 ML UDC PO ONE ×2 (20:05→22:35)
[2023-09-16] MEDS ORDERED: Mag Hydrox/AL Hydrox/Simeth 30 ML UDC PO ONE ×2 (20:05→22:35)
[2023-09-16] MEDS ORDERED: Lidocaine 2% Viscous Soln 15 ML UDC PO ONE ×2 (20:05→22:35)
[2023-09-16] MEDS ORDERED: Ondansetron HCl 2 MG / ML 2ML Vial IV ONE (20:15)
[2023-09-16 20:18] LABS: BASOPHILS ABSOLUTE AUTO 0.07 K/mm3 (0.00-0.23); BASOPHILS PERCENT AUTO 1 % (0-2); EOSINOPHILS ABSOLUTE AUTO 0.21 K/mm3 (0.00-0.68); EOSINOPHILS PERCENT AUTO 3 % (0-6); Hematocrit 40.7 % (33.0-51.0); Hemoglobin 13.8 g/dL (11.5-16.0); IMMATURE GRAN ABSOLUTE AUTO 0.02 K/mm3 (0.00-0.10); IMMATURE GRAN PERCENT AUTO 0 % (0-1); LYMPHOCYTES ABSOLUTE AUTO 2.66 K/mm3 (0.84-5.20); LYMPHOCYTES PERCENT AUTO 33 % (21-46); MONOCYTES ABSOLUTE AUTO 0.45 K/mm3 (0.16-1.47); MONOCYTES PERCENT AUTO 6 % (4-13); Mean Corpuscular HGB 30.7 pg (26.0-34.0); Mean Corpuscular HGB Conc 33.9 g/dL (31.5-36.5); Mean Corpuscular Volume 90 fL (80-100); Mean Platelet Volume 10.2 fL (9.1-12.4); NEUTROPHILS ABSOLUTE AUTO 4.69 K/mm3 (1.96-9.15); NEUTROPHILS PERCENT AUTO 58 % (41-73); Platelet Count 338 K/mm3 (150-400); RDW Coefficient Variation 13.1 % (11.7-14.2); RDW Standard Deviation 43.8 fL (35.1-46.3)
[2023-09-16 20:44] LABS: Albumin, Blood 3.6 g/dL (3.4-5.0); Albumin/Globulin Ratio 0.9 (0.8-1.8); Bilirubin, Total 0.3 mg/dL (0.1-1.0); Bun/Creatinine Ratio 13.8 (12.0-20.0); Calcium, Blood 9.2 mg/dL (8.5-10.1); Creatinine, Blood 0.72 mg/dL (0.40-1.00); Globulin, Blood 3.9 g/dL (2.2-4.0); Total Protein, Blood 7.5 g/dL (6.4-8.2)
[2023-09-16] MEDS ORDERED: HYDROmorphone HCl/Pf 1MG SYR IV ONE (23:35)
[2023-09-16] MEDS ORDERED: DiphenhydrAMINE HCl 50 MG/ML 1ML Vial IV ONE (23:35)
[2023-09-16] MEDS ORDERED: Metoclopramide HCl 5MG / ML 2ML Vial IV ONE (23:35)
[2023-09-17 00:45] VITALS: BP 108/67
[2023-09-17] MEDS ORDERED: RX Prepack 6 Tabs Oxycodone 5mg UD ONE (01:50)
[2023-09-17] MEDS ORDERED: SUCR1 PO (01:53)
[2023-09-17] MEDS ORDERED: PROC5 PO (01:53)
[2023-09-17] MEDS ORDERED: PROM12.5S PR (01:53)
== END 2023-09-17 02:01 | disposition home or self-care (01) ==
LOC: ER 19:45
PROVIDERS: Physician Assistant
DX: R10.13 Epigastric pain (principal); I10 Essential (primary) hypertension; Z87.891 Personal history of nicotine dependence; Z79.82 Long term (current) use of aspirin; Z79.02 Long term (current) use of antithrombotics/antiplatelets; Z88.0 Allergy status to penicillin; Z88.8 Allergy status to other drugs, medicaments and biological substances
CPT/HCPCS: 80053; 83605; 83690; 84484; 85025; 93005; 93010; 96374; 96375; 99284-25; A9270; J1170; J1200; J2405; J2765

== ENCOUNTER 2024-11-20 10:59 | Emergency (ER) | payer MEDICARE, OTHER ==
[~2024-11-20] VITALS: Ht 170.2 cm; Wt 117.9 kg
[~2024-11-20 10:59] MED LIST changes: +PROC5 PO; +PROM12.5S PR; +SUCR1 PO
[2024-11-20 11:15] LABS: BASOPHILS ABSOLUTE AUTO 0.05 K/mm3 (0.00-0.23); BASOPHILS PERCENT AUTO 1 % (0-2); EOSINOPHILS ABSOLUTE AUTO 0.24 K/mm3 (0.00-0.68); EOSINOPHILS PERCENT AUTO 3 % (0-6); Hematocrit 40.5 % (33.0-51.0); Hemoglobin 14.1 g/dL (11.5-16.0); IMMATURE GRAN ABSOLUTE AUTO 0.04 K/mm3 (0.00-0.10); IMMATURE GRAN PERCENT AUTO 0 % (0-1); LYMPHOCYTES ABSOLUTE AUTO 2.52 K/mm3 (0.84-5.20); LYMPHOCYTES PERCENT AUTO 26 % (21-46); MONOCYTES ABSOLUTE AUTO 0.64 K/mm3 (0.16-1.47); MONOCYTES PERCENT AUTO 7 % (4-13); Mean Corpuscular HGB Conc 34.8 g/dL (31.5-36.5); Mean Corpuscular Volume 89 fL (80-100); NEUTROPHILS ABSOLUTE AUTO 6.22 K/mm3 (1.96-9.15); NEUTROPHILS PERCENT AUTO 64 % (41-73); NRBC ABSOLUTE 0.00 K/mm3 (0.00-0.02); NRBC Auto 0.0 /100 WBC (0.0-0.2); Platelet Count 293 K/mm3 (150-400); RDW Coefficient Variation 13.8 % (11.7-14.2); RDW Standard Deviation 45.1 fL (35.1-46.3)
[2024-11-20 11:39] LABS: Alanine Aminotransfer (ALT/SGP 39.0 U/L (12-78); Albumin, Blood 3.3 g/dL (3.4-5.0); Albumin/Globulin Ratio 0.9 (0.8-1.8); Anion Gap 14.0 mmol/L (3-11); Aspartate Aminotrans (AST/SGOT 20.0 U/L (12-37); Bilirubin, Total 0.2 mg/dL (0.1-1.0); Blood Urea Nitrogen 13.0 mg/dL (8-24); CO2, Blood 19.0 mmol/L (21-32); Calcium, Blood 8.4 mg/dL (8.5-10.1); Chloride, Blood 108.0 mmol/L (98-108); Creatinine, Blood 0.55 mg/dL (0.40-1.00); Globulin, Blood 3.8 g/dL (2.2-4.0); Glucose, Blood 99.0 mg/dL (70-99); Potassium, Blood 4.2 mmol/L (3.5-5.5); Sodium, Blood 137.0 mmol/L (136-145); Total Protein, Blood 7.1 g/dL (6.4-8.2)
[2024-11-20] MEDS ORDERED: Morphine Sulfate 4 MG/1 ML Injection IV ONE (11:50)
[2024-11-20] MEDS ORDERED: Midazolam HCl 1MG / ML 2ML Vial IV ONE ×2 (11:50→12:55)
[2024-11-20] MEDS ORDERED: HYDROmorphone HCl/Pf 1MG SYR IV ONE ×2 (12:55→15:15)
[2024-11-20 14:45] VITALS: BP 134/94
[2024-11-20] MEDS ORDERED: Morphine Sulfat15 MG PO (15:01)
[2024-11-21] MEDS ORDERED: METPRE4DP PO (12:01)
== END 2024-11-20 15:35 | disposition home or self-care (01) ==
LOC: ER 10:59
PROVIDERS: Student in an Organized Health Care Education/Training Program
DX: R07.81 Pleurodynia (principal); F41.9 Anxiety disorder, unspecified; Z79.01 Long term (current) use of anticoagulants; Z86.711 Personal history of pulmonary embolism; Z87.891 Personal history of nicotine dependence; I10 Essential (primary) hypertension; Z79.82 Long term (current) use of aspirin; Z88.0 Allergy status to penicillin; Z88.8 Allergy status to other drugs, medicaments and biological substances
CPT/HCPCS: 71260; 80053; 83690; 83880; 84484; 85025; 85379; 93005; 93010; 96374-59; 96375-59; 96376-59; 99285-25; J1171; J2250; J2270; Q9967

== ENCOUNTER 2024-12-31 11:57 | Observation (INO) | payer MEDICARE, OTHER ==
[~2024-12-31] VITALS: Ht 170.2 cm; Wt 123.0 kg
[~2024-12-31 11:57] MED LIST changes: +METPRE4DP PO; +Morphine Sulfat15 MG PO
[2024-12-31 13:42] LABS: BASOPHILS ABSOLUTE AUTO 0.09 K/mm3 (0.00-0.23); BASOPHILS PERCENT AUTO 1 % (0-2); EOSINOPHILS ABSOLUTE AUTO 0.27 K/mm3 (0.00-0.68); EOSINOPHILS PERCENT AUTO 2 % (0-6); Hematocrit 43.8 % (33.0-51.0); Hemoglobin 14.5 g/dL (11.5-16.0); IMMATURE GRAN ABSOLUTE AUTO 0.07 K/mm3 (0.00-0.10); IMMATURE GRAN PERCENT AUTO 1 % (0-1); LYMPHOCYTES ABSOLUTE AUTO 3.23 K/mm3 (0.84-5.20); LYMPHOCYTES PERCENT AUTO 28 % (21-46); MONOCYTES ABSOLUTE AUTO 0.64 K/mm3 (0.16-1.47); MONOCYTES PERCENT AUTO 6 % (4-13); Mean Corpuscular HGB Conc 33.1 g/dL (31.5-36.5); Mean Corpuscular Volume 92 fL (80-100); NEUTROPHILS ABSOLUTE AUTO 7.07 K/mm3 (1.96-9.15); NEUTROPHILS PERCENT AUTO 62 % (41-73); NRBC ABSOLUTE 0.00 K/mm3 (0.00-0.02); NRBC Auto 0.0 /100 WBC (0.0-0.2); Platelet Count 311 K/mm3 (150-400); RDW Coefficient Variation 13.7 % (11.7-14.2); RDW Standard Deviation 46.8 fL (35.1-46.3)
[2024-12-31] MEDS ORDERED: Norco 7.5-3251 EACH PO (14:06)
[2024-12-31 14:14] LABS: Alanine Aminotransfer (ALT/SGP 49.0 U/L (12-78); Albumin, Blood 3.7 g/dL (3.4-5.0); Albumin/Globulin Ratio 0.9 (0.8-1.8); Anion Gap 10.0 mmol/L (3-11); Aspartate Aminotrans (AST/SGOT 21.0 U/L (12-37); Bilirubin, Total 0.3 mg/dL (0.1-1.0); Blood Urea Nitrogen 11.0 mg/dL (8-24); CO2, Blood 22.0 mmol/L (21-32); Calcium, Blood 9.4 mg/dL (8.5-10.1); Chloride, Blood 105.0 mmol/L (98-108); Creatinine, Blood 0.61 mg/dL (0.40-1.00); Globulin, Blood 4.0 g/dL (2.2-4.0); Glucose, Blood 101.0 mg/dL (70-99); Potassium, Blood 4.4 mmol/L (3.5-5.5); Sodium, Blood 133.0 mmol/L (136-145); Total Protein, Blood 7.7 g/dL (6.4-8.2)
[2024-12-31] MEDS ORDERED: Ondansetron HCl 2 MG / ML 2ML Vial IV PRN (15:40)
[2024-12-31] MEDS ORDERED: HYDROcodone 7.5-APAP 325 TAB PO PRN ×2 (15:40→16:20)
[2024-12-31] MEDS ORDERED: FLU VACC TS2025-26(6MOS UP)/PF 45 MCG/0.5 ML SYRINGE IM SCH (15:40)
[2024-12-31] MEDS ORDERED: Prochlorperazine Edisylate 10 mg Vial IV PRN (17:40)
[2024-12-31 18:45] VITALS: BP 140/69
[2024-12-31] MEDS ORDERED: Ativan1 MG PO (18:48)
[2025-01-01 00:07] VITALS: BP 136/78
[2025-01-01 03:45] VITALS: BP 122/80
[2025-01-01 04:43] LABS: BASOPHILS ABSOLUTE AUTO 0.07 K/mm3 (0.00-0.23); BASOPHILS PERCENT AUTO 1 % (0-2); EOSINOPHILS ABSOLUTE AUTO 0.51 K/mm3 (0.00-0.68); EOSINOPHILS PERCENT AUTO 5 % (0-6); Hematocrit 38.2 % (33.0-51.0); Hemoglobin 12.9 g/dL (11.5-16.0); IMMATURE GRAN ABSOLUTE AUTO 0.08 K/mm3 (0.00-0.10); IMMATURE GRAN PERCENT AUTO 1 % (0-1); LYMPHOCYTES ABSOLUTE AUTO 3.58 K/mm3 (0.84-5.20); LYMPHOCYTES PERCENT AUTO 38 % (21-46); MONOCYTES ABSOLUTE AUTO 0.52 K/mm3 (0.16-1.47); MONOCYTES PERCENT AUTO 6 % (4-13); Mean Corpuscular HGB Conc 33.8 g/dL (31.5-36.5); Mean Corpuscular Volume 91 fL (80-100); NEUTROPHILS ABSOLUTE AUTO 4.61 K/mm3 (1.96-9.15); NEUTROPHILS PERCENT AUTO 49 % (41-73); NRBC ABSOLUTE 0.00 K/mm3 (0.00-0.02); NRBC Auto 0.0 /100 WBC (0.0-0.2); Platelet Count 281 K/mm3 (150-400); RDW Coefficient Variation 13.8 % (11.7-14.2); RDW Standard Deviation 46.4 fL (35.1-46.3)
[2025-01-01 05:18] LABS: Alanine Aminotransfer (ALT/SGP 41 U/L (12-78); Albumin, Blood 3.0 g/dL (3.4-5.0); Albumin/Globulin Ratio 0.9 (0.8-1.8); Anion Gap 9 mmol/L (3-11); Aspartate Aminotrans (AST/SGOT 15 U/L (12-37); Bilirubin, Total 0.2 mg/dL (0.1-1.0); Blood Urea Nitrogen 14 mg/dL (8-24); CHOL/HDL RATIO 5.9; CO2, Blood 24 mmol/L (21-32); Calcium, Blood 9.2 mg/dL (8.5-10.1); Chloride, Blood 105 mmol/L (98-108); Cholesterol 229 mg/dL (50-200); Creatinine, Blood 0.67 mg/dL (0.40-1.00); Globulin, Blood 3.5 g/dL (2.2-4.0); Glucose, Blood 129 mg/dL (70-99); HDL Cholesterol 39 mg/dL (>39); LDL/HDL RATIO 3.6; Low Density Lipoprotein Chol 142 mg/dL (0-110); Potassium, Blood 4.0 mmol/L (3.5-5.5); Sodium, Blood 134 mmol/L (136-145); Thyroid Stimulating Hormone 5.910 uIU/mL (0.360-4.800); Total Protein, Blood 6.5 g/dL (6.4-8.2); Triglycerides 242 mg/dL (30-160); Very Low Density Lipoprot Chol 48 mg/dL (6-32)
--- NOTE | 2025-01-01 07:28 | NUR ---
SHIFT SUMMARY: PT AOX4 IND IN THE ROOM WITH HER WHEELCHAIR. CALLS APPROPRAITELY AND ABLE TO MAKE NEEDS KNOWN. PT TOLERATING MEDICATIONS WELL. STATES THAT SYMPTOMS ARE ABOUT THE SAME SINCE ADMISSION. STATES FEELING SOME HEADACHE IN THE BACK OF HER HEAD DOWN THE SPINE. MEDICATED PER EMR. NAUSEA AND VOMITING ALSO MEDICATED PER EMR. PT STATES JUST NOT FEELING RIGHT. STILL AWAITING WHETHER MRI CAN BE DONE. NO ACUTE OVERNIGHT EVENTS. PT IN BED RESTING, BED IN LOWEST POSITION CALL LIGHT IN REACH. CONTINUING CARE.
[2025-01-01 07:49] VITALS: BP 111/54
[2025-01-01] MEDS ORDERED: FentaNYL Citrate 50 MCG/ML 2 ML Injection IV ONE (12:00)
--- NOTE | 2025-01-01 18:34 | NUR ---
PT A/OX4. PLEASANT AND COOPERATIVE WITH CARE. USES CALL LIGHT APPROPRIATELY. NAUSEA AND PAIN TREATED PER EMAR. PT CONTINUES TO HAVE A HEADACHE. MRI COMPLETED TODAY, RESULTS PENDING. INDEPENDENT IN ROOM WITH W/C.
[2025-01-01 19:18] VITALS: BP 154/91
--- NOTE | 2025-01-01 19:44 | NUR ---
ASSUMPTION OF CARE ASSUMED PT'S AT 1900,PT WIDE AWAKE SITTING UP IN BED.BEDSIDE REPORT COMPLETED,PLAN OF CARE REVIEWED.PT REPORTS A HEADACHE,RATES PAIN AT 6/10.PT STATES THAT TYLENOL AND NORCO HAS NOT CONTROLLED THE PAIN.STATES THAT THE ONE TIME ORDER OF FENTANYL BROUGHT THE PAIN DOWN TO 4/10.PT REQUESTING FENTANYL,MORPHINE OR DILAUDID.PT STATES THAT SHE HAS NAUSEA DUE TO UNCONTROLLED PAIN WHICH IN TURN CAUSES HER TO HAVE ANXIETY.PT ALSO REQUESTING ATIVAN WHICH SHE TAKES AT HOME BUT WAS NOT ORDERED.PT DENIES SOB,DENIES FURTHER NEEDS.CALL LIGHT AND PT'S ITEMS WITHIN REACH.CALL PLACED TO MD PROFILER HAND ,NO ANSWER.MESSAGE LEFT FOR MD TO CALL BACK.MONITORING ONGOING PER CAREPLAN.
[2025-01-01] MEDS ORDERED: HYDROcodone 7.5-APAP 325 TAB PO PRN (20:20)
[2025-01-02 00:14] VITALS: BP 150/83
[2025-01-02 04:22] VITALS: BP 140/77
[2025-01-02 07:30] VITALS: BP 141/90
[2025-01-02] MEDS ORDERED: Acetaminophen/Aspirin/Caffeine 250/250/65 MG PO PRN (08:05)
--- NOTE | 2025-01-02 08:09 | NUR ---
PT MONITORED DURING THE SHIFT.PT REQUESTED ADDITIONAL PAIN MEDICATION,MD NOTIFIED.PRN PAIN MED INTERVAL TIME ADJUSTED,ATIVAN ORDERED PER PT'S REQUEST.PT HAD THREATENED TO LEAVE AMA.PRN PAIN MEDS AND NAUSEA MEDS GIVEN PRN ORDERED.PT INDEPENDENT IN ROOM.PT APPEARS TO BE RESTING IN BED AT THIS TIME.REPORT GIVEN TO DAYSHIFT NURSE.PT DENIES PAIN,DENIES NEEDS AT THIS TIME.CALL LIGHT AND PT'S ITEMS WITHIN SILVIA.
[2025-01-02] MEDS ORDERED: NS 500 ML IV SCH (08:10)
[2025-01-02 11:19] VITALS: BP 112/58
[2025-01-02] MEDS ORDERED: DOCU100 PO (14:38)
[2025-01-02] MEDS ORDERED: ASPIRIN-ACETAM1 EAC1 PO (14:38)
[2025-01-02] MEDS ORDERED: Acetaminophen650 M1 PO (14:39)
--- NOTE | 2025-01-02 14:45 | NUR ---
PT DISCHARGED TO HOME. DISCHARGE INSTRUCTIONS PROVIDED AND EDUCATED ON AT TIME OF DISCHARGE. ALL VALUABLES RETURNED AND SENT HOME WITH THE PT. MEDICATIONS FAXED TO [facility].
== END 2025-01-02 14:45 | disposition home or self-care (01) ==
LOC: ER 11:57 → MEDS 11:58 → ENPENDDIS 01-02 12:06 → MEDS 01-02 14:45
PROVIDERS: Student in an Organized Health Care Education/Training Program; ADMIT Internal Medicine
DX: R20.0 Anesthesia of skin (principal); D68.51 Activated protein C resistance; I73.9 Peripheral vascular disease, unspecified; M35.5 Multifocal fibrosclerosis; E03.8 Other specified hypothyroidism; F17.210 Nicotine dependence, cigarettes, uncomplicated; E66.9 Obesity, unspecified; Z68.41 Body mass index [BMI] 40.0-44.9, adult; Z79.01 Long term (current) use of anticoagulants; Z79.82 Long term (current) use of aspirin; Z79.899 Other long term (current) drug therapy; Z88.0 Allergy status to penicillin; Z88.8 Allergy status to other drugs, medicaments and biological substances; Z89.511 Acquired absence of right leg below knee; Z86.73 Personal history of transient ischemic attack (TIA), and cerebral infarction without residual deficits; Z86.718 Personal history of other venous thrombosis and embolism; Z86.711 Personal history of pulmonary embolism
CPT/HCPCS: 36415; 70450; 70496; 70498; 70551; 80053; 80061; 83036; 84439; 84443; 85025; 93306; 96374-59; 96375; 96376; 99285-25; A9270; G0378; J0780; J2405; J3010; J7040; Q9967